=== PATIENT | female | born 1960 | race Caucasian/White ===

== ENCOUNTER 2016-09-26 15:57 | Inpatient (IN) ==
[2016-09-26] MEDS ORDERED: MORPHINE 2 MG/1 ML SYRINGE IV STA (16:23)
[2016-09-26] MEDS ORDERED: SODIUM CHLORIDE 0.9% 1,000 ML IV STA (16:23)
[2016-09-26] MEDS ORDERED: ONDANSETRON 4 MG/2 ML VIAL IV STA (16:23)
[2016-09-26] MEDS ORDERED: PANTOPRAZOLE 40 MG VIAL IV STA (16:23)
[2016-09-26 16:51] LABS: Basophils % 0.5 % (0.0-0.8); Eosinophils # 0.1 10*3/uL (0.0-0.87); Eosinophils % 1.3 % (0.00-10.9); Hematocrit 41.1 VOL% (35.7-47.0); Hemoglobin 13.5 GM/DL (12.0-16.0); Immature Granulocytes % 0.2 %; Immature Granulocytes Absolute 0.01 #; Lymphocytes # 1.3 10*3/uL (1.4-4.0); Lymphocytes % 20.5 % (21.3-54.2); Mean Corpuscular HGB Conc 32.8 GM/DL (32-36); Mean Corpuscular Hemoglobin 33 PG (27-34); Mean Corpuscular Volume 98.8 FL (87-102); Mean Platelet Volume 9.9 FL (9.6-12.0); Monocytes # 0.5 10*3/uL (0.11-0.8); Monocytes % 7.6 % (1.7-12.7); Neutrophils # 4.3 10*3/uL (1.4-7.4); Neutrophils % 69.9 % (38.7-73.9); Platelet Count 290 T/CUMM (130-400); Red Blood Count 4.16 MC/CUMM (3.8-5.5); Red Cell Distribution Width 14.5 % (9.3-17.3); White Blood Count 6.2 T/CUMM (4-12)
[2016-09-26] MEDS ORDERED: PANTOPRAZOLE 40 MG VIAL IV ONE (16:53)
[2016-09-26] MEDS ORDERED: MORPHINE 2 MG/1 ML SYRINGE ONE (16:53)
[2016-09-26] MEDS ORDERED: ONDANSETRON 4 MG/2 ML VIAL ONE (16:53)
--- NOTE | 2016-09-26 16:59 | CT Report ---
History: Left upper quadrant pain with vomiting Date: 09/26/2016 Study: CT abdomen and pelvis without contrast Comparison exam: Contrast CT abdomen and pelvis June 07, 2014 Technique: Spiral CT sections were obtained from the lung bases to the pubic symphysis without contrast. Total DLP measures 590.6 mGy*cm. The CT exam was performed using one or more of the following dose reduction techniques: Automated exposure control, adjustment of the mA and/or kV according to patient size, or use of iterative reconstruction technique. CT abdomen: There is mild strandy scar or subsegmental atelectasis in the left lung base more so than the right. There is moderate diffuse fatty infiltration of the otherwise unremarkable liver. There is some medium dense opacity associated with the lumen of the gallbladder which could represent sludge or gallstones. No calcific density gallstones are seen. There is no gross biliary dilatation. The kidneys, adrenal glands, and spleen are normal in noncontrast appearance. 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 There is an area of relatively decreased density involving the body of the pancreas at 18 mm which could represent chronic pseudocyst formation. There was a vaguely similar area in this same region on the previous contrast CT. There is increased strandy opacity in the peripancreatic fat which could represent changes of previous pancreatitis versus postsurgical scarring. Acute pancreatitis cannot be completely excluded. There is no evidence of pneumoperitoneum. There is no ac bowel obstruction. There is no aneurysm of the moderately calcified abdominal aorta. There is no gross lymphadenopathy. CT pelvis: There is no pelvic mass or abnormal pelvic fluid collection. The uterus is not seen compatible with prior hysterectomy. Impression: 18 mm area of relatively decreased density involving the body of the pancreas which could represent chronic pseudocyst formation, but is nonspecific. There was a similar area on the comparison CT from 2013. Peripancreatic postsurgical change with or without superimposed acute pancreatitis. Correlation with serum amylase and lipase is advised. Strandy scar or subsegmental atelectasis left lower lung. Fatty infiltration of the liver PROCEDURE INTERPRETED AT [facility] DEPARTMENT OF RADIOLOGY Final Report Signed by: Dr. Tita Estevez
[2016-09-26 17:27] LABS: Alanine Aminotransferase 43 U/L (13-56); Albumin 3.3 G/DL (3.4-5.0); Alkaline Phosphatase 98 U/L (45-117); Aspartate Amino Transferase 43 U/L (0-37); Bilirubin,Total < 0.39 MG/DL (0.2-1.0); Blood Urea Nitrogen 12 MG/DL (7-18); Calcium 8.9 MG/DL (8.5-10.1); Glucose 106 MG/DL (74-106); Magnesium 2.2 MG/DL (1.8-2.4); Osmolality,Calculated 274.7 MOS/KG (273-304); Potassium 2.8 MMOL/L (3.5-5.1); Sodium 138 MMOL/L (136-145); Total Protein 7.3 G/DL (6.4-8.3)
--- NOTE | 2016-09-26 17:52 | Emergency Department Note ---
Molly Remy Hilary, am scribing for, and in the presence of, David Webb MD 16:31. Jon Remy Phillip K, MD, personally performed the services described in this documentation, ascribed by Soo Barnes in my presence, and it is both accurate and complete 751 . Arrival - Arrival Chief Complaint: Abdominal / Flank Pain Stated Complaint: abd pain ED Nursing Triage Note: PT C/O PAIN TO [facility]- PT SEEN BY DR PETIT SATURDAY AND WAS TOLD SHE HAD PANCREATITIS. PT HAD LABS AND ULTRASOUND TODAY. PT TOLD BY DR BALL TO COME TO ER TO BE SEEN BY DR ALFORD. +N/V. Mode of Arrival: Ambulatory Limitations: No Limitations Source: Patient, RN Notes Reviewed - History of Present Illness HPI Narrative: Pt is a 55 y/o white female presenting to the ED with c/o abdominal pain which onset 2-3 months ago. Pt confirms nausea, vomiting, decreased appetite, and tenderness to the RUQ that radiates to her back but denies back pain on palpation or chest pain. Pt states that Dr. Ball told her that she has Pancreatitis and she had blood work and an ultrasound done at 0900 this morning at another hospital. She adds that the pain worsens when she coughs or when she moves at all. Pt has PMHx of HTN, Depression, Dyslipidemia, Bronchitis, Asthma, Fibromyalgia, obstructive sleep apnea, Pneumonia, Pancratitis, GERD, and has a Social Hx of drinking frquently and is a current every day smoker. No other complaints or problems stated in the ED. Onset (ago): month(s) Allergies/Adverse Reactions: Allergies Allergy/AdvReac Type Severity Reaction Status Date / Time Erythromycin Base Allergy Unknown Unknown/Unable Verified 09/26/16 16:02 to obtain Penicillins Allergy Unknown Unknown/Unable Verified 09/26/16 16:02 to obtain Sulfa (Sulfonamide Allergy Unknown Unknown/Unable Verified 09/26/16 16:02 Antibiotics) to obtain Home Medications: Home Medications Medication Instructions Recorded Confirmed Type Amlodipine Besylate 10 mg PO QPM 05/14/16 09/26/16 History Atorvastatin [Lipitor] 10 mg PO QPM 05/14/16 09/26/16 History Duloxetine HCl [Cymbalta] 60 mg PO BID 05/14/16 09/26/16 History Loratadine [Claritin] 10 mg PO DAILY PRN 05/14/16 09/26/16 History Mirtazapine 15 mg PO BEDTIME 05/14/16 09/26/16 History Pantoprazole Tab [Protonix Tab] 40 mg PO QAM 05/14/16 09/26/16 History Propranolol HCl [Propranolol Tab] 20 mg PO TID 05/14/16 09/26/16 History QUEtiapine [SEROquel] 100 mg PO BEDTIME 05/14/16 09/26/16 History Tizanidine HCl 2 mg PO TID PRN 05/14/16 09/26/16 History Doxepin [SINEquan] 100 mg PO BEDTIME 09/26/16 09/26/16 History Fluticasone 50 Mcg Nasal [place] 1 spray BOTH NARES DAILY PRN 09/26/16 09/26/16 History [Flonase Nasal [place]] hydroCHLOROthiazide 12.5 mg PO QAM 09/26/16 09/26/16 History [Hydrochlorothiazide] Review of System - Review of System 12 point system: reviewed and no additional remarkable complaints except as stated - Review of System Constitutional: Present: other (Decreased appetite). Absent: fever Respiratory: Present: cough Cardiovascular: Absent: chest pain Gastrointestinal: Present: abdominal pain, nausea, vomiting Musculoskeletal: Absent: back pain, neck pain Medical,Surgical,& Family Hx - Medical History Cardio: History of: Hypertension Psychological: History of: Anxiety Disorders, Depression Neurology: No history of: Seizures Endocrine: History of: Dyslipidemia Rheumatology: History of;: Fibromyalgia Respiratory: History of: Asthma, Bronchitis, Obstructive Sleep Apnea (Does not wear C-pap), Pneumonia Gastrointestinal: History of: GERD, Hemorrhoids, Pancreatitis Musculoskeletal: History of: Back/Neck Problems (Neck) Hematology: No history of: Blood Transfusion Reaction Reproductive: No history of: Abnormal Pap Smear, Breast Cancer Other: No history of: Anesthesia Reactions - Surgical History Cardiac Surgeries: Patient Denies: Cardiac Catheterization Abdominal Surgeries: Surgical HX of: Abdominal Surgery, Appendectomy, Colonoscopy, EGD Patient denies: Cholecystectomy, Gastric Bypass Surgery, Hernia Repair Reproductive Surgeries: Surgical HX of;: Gynecologic Surgery, Hysterectomy Patient denies;: Breast Surgery, Section Orthopedic Surgeries: Surgical HX of;: Orthopedic Surgery (LEFT shoulder rotator cuff repair) - Family History Family History: Denies;: Family Anesthesia Reaction, Family Cancer, Family Diabetes, Family Heart Disease, Family Hypertension, Family Psychiatric Problems, Family Stroke - Social History Smoking Status: Current every day smoker Frequency of Alcohol Use: Occasionally Type of Drug Use: None Exam Vital Signs: Vital Signs Temperature 98.9 F 09/26/16 15:58 Pulse Rate 93 H 09/26/16 17:15 Respiratory Rate 18 09/26/16 17:15 Blood Pressure 142/75 09/26/16 17:15 O2 Sat by Pulse Oximetry 94 L 09/26/16 17:15 - General General appearance: alert, in no apparent distress - Head Head exam: Present: atraumatic, normocephalic - Eye Eye exam: Present: normal appearance, PERRL, EOMI - ENT ENT exam: Present: mucous membranes dry, TM's normal bilaterally - Neck Neck exam: Present: full ROM, trachea midline. Absent: tenderness - Chest Chest inspection: Present: symmetric chest wall rise. Absent: tenderness - Respiratory Respiratory exam: Present: rales (Bilaterally) - Cardiovascular Cardiovascular exam: Present: normal rhythm, tachycardia. Absent: murmur, rubs , gallop - Abdominal Exam Abdominal exam: Present: tenderness (RUQ tenderness to direct palpation), normal bowel sounds. Absent: guarding, rebound - Extremities Exam Extremities exam: Present: full ROM. Absent: tenderness, pedal edema - Back Exam Back exam: Present: full ROM. Absent: tenderness - Neurological Exam Neurological exam: Present: alert, oriented X3, CN II-XII intact. Absent: motor sensory deficit - Psychiatric Psychiatric exam: Present: normal affect, normal mood - Skin Skin exam: Present: warm, dry, intact, normal color. Absent: rash Results - Labs CBC & BMP: 09/26/16 16:39 09/26/16 16:39 Lab Results: I have reviewed the patients labs Labs: Laboratory Tests 09/26/16 16:39 WBC 6.2 RBC 4.16 Hgb 13.5 Hct 41.1 Lymph % (Auto) 20.5 L Lymph # (Auto) 1.3 L Laboratory Tests 09/26/16 09/26/16 09/26/16 16:39 16:39 16:39 WBC 6.2 RBC 4.16 Hgb 13.5 Hct 41.1 Lymph % (Auto) 20.5 L Lymph # (Auto) 1.3 L Potassium 2.8 L Albumin 3.3 L Globulin 4.0 H Albumin/Globulin Ratio 0.8 L Lipase 1029.0 H Serum Alcohol 168 - Diagnostic Findings Procedure: CT Abdomen and Pelvis: report reviewed by me (18mm area of relatively decreased density involving the body of the pancreas which could represent chronic pseudocyst formation, but is nonspecific. There was a similar area on the comparison CT from 2014. Peripancreatic postsurgical change with or without superimposed acute pancreatitis. Correlation with serum amylase and lipase is advised. Strandy scar or subsegmetnal atelectasis left lower lung. Fatty infiltration of the liver. ) Disposition Clinical Impression: Acute pancreatitis, Alcohol intoxication Case discussed with: patient, patient's family Disposition: Still a Patient Condition: Guarded Additional Instructions: Admitted to the hospitalist.
[2016-09-26 18:10] LABS: Apearance,Urine CLEAR (Clear); Bacteria,Urine Occasional /HPF (Few); Bilirubin,Urine Negative (Negative); Blood, Urine Negative (Negative); Glucose,Urine (UA) Negative (Negative); Ketones,Urine 5 mg/dL (Negative); Mucus,Urine Occasional /LPF (Occasional); Nitrite,Urine Negative (Negative); Protein,Urine Negative; RBC,Urine <1 /HPF (0-4); Squamous Epithelial Cell,Urine Occasional /HPF (0-10); Urine Color Yellow (Yellow); Urine Specific Gravity 1.019 (1.001-1.035); WBC,Urine 1 /HPF (0-6)
--- NOTE | 2016-09-26 18:24 | EKG Report ---
Stationary ECG Study [facility] ER Test Date: 09/26/2016 6:22:01 PM Pat Name: BERE FERNANDEZ Department: Room: [facility] Gender: F Global Sales Director: CEDRIC : 1960 Requested by: David Salazar Order Number: [id number] Reading MD: MELISSA FAUSTIN Intervals [place] Rate: 94 P: 36 ID: 160 QRS: 40 QRSD: 90 T: 60 QT: 362 QTc: 413 Interpretive Statements SINUS RHYTHM Electronically Signed On 10-01-16 11:28:28 CDT by MELISSA FAUSTIN [email or web address]
--- NOTE | 2016-09-26 19:02 | Hospitalist History & Physical ---
Assessment and Plan - Time spent with patient Time spent with patient: Greater than 30 minutes (1) Acute alcoholic pancreatitis Status: Acute Assessment and plan: 55-year-old white female with history of previous admissions for acute alcoholic pancreatitis, depression, fibromyalgia and hypertension admitted by the hospitalist service with acute alcoholic pancreatitis. Patient is adamantly denying her alcohol use but her serum alcohol level was 168. Patient' s case has been discussed with Dr. Jules the admitting hospitalist. Further recommendations to follow Acute alcoholic pancreatitis--IV fluid, pain and nausea control, consult Dr. Estevez since he is seen her previously. We will go ahead and hang a banana bag since patient's alcohol use and amount is unknown. Start antibiotics. Hypertension--restart patient's home meds and monitor Tobacco abuse--order nicotine patch Depression/fibromyalgia--restart home meds Hypokalemia--potassium replacement protocol. Recheck labs in the morning Current Visit: Yes (2) Fibromyalgia Status: Acute Current Visit: Yes (3) Depression Status: Acute Current Visit: Yes (4) Tobacco abuse Status: Acute Current Visit: Yes (5) Hypokalemia Status: Acute Current Visit: Yes History of Present Illness Chief complaint: Abdominal pain History of present illness: Ms. Crum is a 55 year old female with history of hypertension, depression, alcohol abuse, fibromyalgia and acute pancreatitis presenting to the ED with a 2 week history of progressive abdominal pain. Patient states it is not associated with nausea or vomiting. She went to her family doctor in [place] that thought she had costochondritis. She was sent to Dr. Adam on Saturday who thought she was misdiagnosed. He ordered several tests that were done this morning. Dr. Adam office called and told her to go to the emergency room because she had acute pancreatitis. Patient has had multiple admissions for acute alcoholic pancreatitis over the last several years. Dr. Estevez from gastroenterology has taken care of her on all those occasions. Her last admission was in May 2014. Patient denies any alcohol intake. She states the last time she drank was in March after her son of an overdose. Patient's pulled me outside of the room and stated that he has suspected her of drinking alcohol in the last few weeks. He is found several bottles of vodka laying around the house. states the patient has had 2 DUIs and that he has taken her car keys away from her. He is unsure how she will be getting the alcohol. Patient adamantly denies this accusation. Patient's serum alcohol level was 168 on today's admission lab work. Patient denies headache, dysphagia, chest pain, shortness of breath, constipation, or lower extremity edema. Her white count is normal, potassium low at 2.8, LFTs normal, lipase is elevated at 1029. CT of the abdomen and pelvis done in the ED show an 18 mm area of relatively decreased density involving the body of the pancreas which could represent chronic pseudocyst formation. Upon exam, patient 's chest is clear and she is tachycardic. She is tender to palpation in the left upper quadrant with no peritoneal signs. Patient's case was discussed with Dr. Webb the ED physician and Dr. Jules the admitting hospitalist, and it was agreed upon the patient would be admitted for evaluation and treatment. Home Medications Medication Instructions Recorded Confirmed Type Amlodipine Besylate 10 mg PO QPM 05/14/16 09/26/16 History Atorvastatin [Lipitor] 10 mg PO QPM 05/14/16 09/26/16 History Duloxetine HCl [Cymbalta] 60 mg PO BID 05/14/16 09/26/16 History Loratadine [Claritin] 10 mg PO DAILY PRN 05/14/16 09/26/16 History Mirtazapine 15 mg PO BEDTIME 05/14/16 09/26/16 History Pantoprazole Tab [Protonix Tab] 40 mg PO QAM 05/14/16 09/26/16 History Propranolol HCl [Propranolol Tab] 20 mg PO TID 05/14/16 09/26/16 History QUEtiapine [SEROquel] 100 mg PO BEDTIME 05/14/16 09/26/16 History Tizanidine HCl 2 mg PO TID PRN 05/14/16 09/26/16 History Doxepin [SINEquan] 100 mg PO BEDTIME 09/26/16 09/26/16 History Fluticasone 50 Mcg Nasal [place] 1 spray BOTH NARES DAILY PRN 09/26/16 09/26/16 History [Flonase Nasal [place]] hydroCHLOROthiazide 12.5 mg PO QAM 09/26/16 09/26/16 History [Hydrochlorothiazide] Allergies Allergy/AdvReac Type Severity Reaction Status Date / Time Erythromycin Base Allergy Unknown Unknown/Unable Verified 09/26/16 16:02 to obtain Penicillins Allergy Unknown Unknown/Unable Verified 09/26/16 16:02 to obtain Sulfa (Sulfonamide Allergy Unknown Unknown/Unable Verified 09/26/16 16:02 Antibiotics) to obtain Medical,Surgical,& Family Hx - Medical History Cardio: History of: Hypertension Psychological: History of: Anxiety Disorders, Depression Neurology: No history of: Seizures Endocrine: History of: Dyslipidemia Rheumatology: History of;: Fibromyalgia Respiratory: History of: Asthma, Bronchitis, Obstructive Sleep Apnea (Does not wear C-pap), Pneumonia Gastrointestinal: History of: GERD, Hemorrhoids, Pancreatitis Musculoskeletal: History of: Back/Neck Problems (Neck) Hematology: No history of: Blood Transfusion Reaction Reproductive: No history of: Abnormal Pap Smear, Breast Cancer Other: No history of: Anesthesia Reactions - Surgical History Cardiac Surgeries: Patient Denies: Cardiac Catheterization Abdominal Surgeries: Surgical HX of: Abdominal Surgery, Appendectomy, Colonoscopy, EGD Patient denies: Cholecystectomy, Gastric Bypass Surgery, Hernia Repair Reproductive Surgeries: Surgical HX of;: Gynecologic Surgery, Hysterectomy Patient denies;: Breast Surgery, Section Orthopedic Surgeries: Surgical HX of;: Orthopedic Surgery (LEFT shoulder rotator cuff repair) - Family History Family History: Reports;: Family Cancer, Family Hypertension Denies;: Family Anesthesia Reaction, Family Diabetes, Family Heart Disease, Family Psychiatric Problems, Family Stroke - Social History Smoking Status: Current every day smoker Have you smoked in the last 12 months: Yes Frequency of Alcohol Use: Occasionally Type of Drug Use: None Marital Status: Lives With:: Spouse Functional capacity: independent ambulation Review of systems: A complete 10 system review of systems was obtained and pertinent negatives and positives per HPI Exam - Constitutional Vitals: Period Temp Pulse Resp BP Sys/Rodriguez Pulse Ox Last 24 Hr 89-97 18-18 152-156/93-93 93-98 Exam: Constitutional System: No distress. No tremulousness. Head: Normocephalic, atraumatic. Ears, Nose and Throat System: No evidence of Otitis or Mastoiditis. No epistaxis or discharge Eyes System: Pupils equal, round, and reactive. Extraocular muscles intact. Neck: Supple, without adenopathy, No jugular venous distention. No thyromegaly, neck mass, or prior surgery apparent. Respiratory System: Chest clear to auscultation. Cardiovascular System: Heart with tachycardia rate and rhythm. No murmur. GI System: Abdomen soft, tender to palpation left upper quadrant, no peritoneal signs no rebound. Normo active bowel sounds present. Musculoskeletal System: limbs with no pedal edema. Full distal pulses. Neurological System: No discernable sensory deficit. No aphasia Psychiatric System: Conversation is rational Results - Labs CBC & BMP: 09/26/16 16:39 09/26/16 16:39 Lab Results: I have reviewed the past 24 hour labs - EKG EKG results: sinus rhythm EKG shows: tachycardia - Diagnostic Findings Procedure: CT Abdomen and Pelvis: report reviewed by me (Pancreatic pseudocyst)
[2016-09-26] MEDS ORDERED: guaiFENesin/DM ER 600-30 MG TABLET PO PRN (19:11)
[2016-09-26] MEDS ORDERED: ACETAMINOPHEN 325 MG TABLET PO PRN (19:11)
[2016-09-26] MEDS ORDERED: LORazepam 2 MG/1 ML VIAL IV PRN (19:16)
[2016-09-26] MEDS ORDERED: LORATADINE 10 MG TABLET PO PRN (19:37)
[2016-09-26] MEDS ORDERED: FLUTICASONE 50 MCG NASAL SPRAY 16 GM BOTTLE BOTH NARES PRN (19:37)
[2016-09-26] MEDS ORDERED: tiZANidine 4 MG TABLET PO PRN (19:37)
[2016-09-26] MEDS: NICOTINE 21 MG/24 HR PATCH TRANSDERM PRN (19:56)
[2016-09-26] MEDS: ENOXAPARIN 40 MG/0.4 ML SYRINGE SUBCUT SCH (19:57)
[2016-09-26] MEDS: SODIUM CHLORIDE 0.9% 1,000 ML IV SCH (19:58)
[2016-09-26] MEDS: HYDROmorphone 2 MG/1 ML VIAL IV PRN (19:59)
[2016-09-26] MEDS: metroNIDAZOLE INJ 500 MG in PREMIX 1 EACH IV SCH (20:05)
[2016-09-26] MEDS ORDERED: POTASSIUM CHLORIDE 20 MEQ PACK PO ONE ×2 (21:10→23:15)
[2016-09-26] MEDS: MIRTAZAPINE 15 MG TABLET PO SCH (21:30)
[2016-09-26] MEDS: DULoxetine 30 MG CAPSULE PO SCH (21:30)
[2016-09-26] MEDS: QUEtiapine 100 MG TABLET PO SCH (21:30)
[2016-09-26] MEDS: ATORVASTATIN 10 MG TABLET PO SCH (21:30)
[2016-09-26] MEDS: DOXEPIN 100 MG CAPSULE PO SCH (21:30)
[2016-09-26] MEDS: amLODIPine 10 MG TABLET PO SCH (21:30)
[2016-09-26] MEDS: PROPRANOLOL 20 MG TABLET PO SCH (21:30)
[2016-09-26] MEDS: CIPROFLOXACIN INJ 400 MG in PREMIX 1 EACH IV SCH (21:35)
[2016-09-26] MEDS: ONDANSETRON 4 MG/2 ML VIAL IV PRN (21:48)
[2016-09-26] MEDS: THIAMINE INJ 100 MG, FOLIC ACID INJ 1 MG, MULTIVITAMIN INJ 10 ML in SODIUM CHLORIDE 0.4... IV SCH (23:42)
[2016-09-27] MEDS: SODIUM CHLORIDE 0.9% 1,000 ML IV SCH ×4 (00:49→18:16)
[2016-09-27] MEDS ORDERED: POTASSIUM CHLORIDE 20 MEQ PACK PO ONE (01:15)
[2016-09-27] MEDS: HYDROmorphone 2 MG/1 ML VIAL IV PRN ×4 (01:34→18:15)
[2016-09-27] MEDS: metroNIDAZOLE INJ 500 MG in PREMIX 1 EACH IV SCH ×4 (01:40→20:27)
[2016-09-27 05:55] LABS: Basophils % 0.7 % (0.0-0.8); Eosinophils # 0.1 10*3/uL (0.0-0.87); Eosinophils % 2.3 % (0.00-10.9); Hematocrit 35.5 VOL% (35.7-47.0); Immature Granulocytes % 0.3 %; Immature Granulocytes Absolute 0.01 #; Lymphocytes # 1.2 10*3/uL (1.4-4.0); Lymphocytes % 38.5 % (21.3-54.2); Mean Corpuscular HGB Conc 32.1 GM/DL (32-36); Mean Corpuscular Hemoglobin 32 PG (27-34); Mean Corpuscular Volume 100.3 FL (87-102); Mean Platelet Volume 10.4 FL (9.6-12.0); Monocytes # 0.3 10*3/uL (0.11-0.8); Monocytes % 11.4 % (1.7-12.7); Neutrophils # 1.4 10*3/uL (1.4-7.4); Neutrophils % 46.8 % (38.7-73.9); Red Blood Count 3.54 MC/CUMM (3.8-5.5); Red Cell Distribution Width 14.6 % (9.3-17.3)
[2016-09-27 06:15] LABS: Hemoglobin 11.4 GM/DL (12.0-16.0); Platelet Count 229 T/CUMM (130-400)
[2016-09-27 06:23] LABS: Alanine Aminotransferase 30 U/L (13-56); Albumin 2.8 G/DL (3.4-5.0); Alkaline Phosphatase 81 U/L (45-117); Aspartate Amino Transferase 33 U/L (0-37); Bilirubin,Total < 0.39 MG/DL (0.2-1.0); Blood Urea Nitrogen 10 MG/DL (7-18); Cholesterol 132 MG/DL (50-200); Glucose 86 MG/DL (74-106); HDL Cholesterol 34 MG/DL (40-60); Magnesium 2.1 MG/DL (1.8-2.4); Osmolality,Calculated 278.3 MOS/KG (273-304); Potassium 3.5 MMOL/L (3.5-5.1); Risk Ratio 3.88; Sodium 141 MMOL/L (136-145); Total Protein 5.5 G/DL (6.4-8.3); Triglycerides 84 MG/DL (2-150); VLDL CHOLESTEROL 16.8 MG/DL
--- NOTE | 2016-09-27 08:26 | Ultrasound Report ---
Abdominal ultrasound Indication: Pancreatitis Findings: The liver is normal in size and echogenicity. The gallbladder is fluid-filled without evidence of stones or sludge. The gallbladder wall thickness is 2.0 mm. The common bile duct measures 3.0 mm. Cystic areas seen in the midepigastric region near the body of the pancreas. The kidneys normal in size and echogenicity without hydronephrosis or other abnormality. The right renal length is 10.9 cm. Left renal length is 12.3 cm. Spleen, aorta and IVC appear within normal limits. No free fluid or free air seen. Impression: Cystic area mid epigastric region near body of pancreas may indicate cirrhosis. No other evidence of abnormality demonstrated. Ultrasound images stored and captured. PROCEDURE INTERPRETED AT [facility] DEPARTMENT OF RADIOLOGY Final Report Signed by: Dr. Joe Melvin
[2016-09-27] MEDS: ONDANSETRON 4 MG/2 ML VIAL IV PRN ×3 (08:58→18:15)
[2016-09-27] MEDS: PROPRANOLOL 20 MG TABLET PO SCH ×3 (08:59→20:31)
[2016-09-27] MEDS: PANTOPRAZOLE 40 MG TABLET PO SCH (08:59)
[2016-09-27] MEDS: DULoxetine 30 MG CAPSULE PO SCH ×2 (08:59→20:31)
[2016-09-27] MEDS: hydroCHLOROthiazide 12.5 MG CAPSULE PO SCH (08:59)
--- NOTE | 2016-09-27 09:30 | Gastrointestinal Consult Note ---
Assessment and Plan (1) Acute on chronic pancreatitis Status: Acute Assessment and plan: 09/27-history of pancreatitis since 2011 being the fourth episode since initial onset. Lipase levels trending down at [address] findings noted below. Continue to monitor, keep n.p.o., analgesics as needed. Add Benadryl for opioid-induced itching. Plan an addendum to follow by Dr. Estevez Current Visit: Yes History of Present Illness Chief complaint: Pancreatitis History of present illness: Ms. Crum is a 55 year old female who presented to the hospital with 1 month history of abdominal pain. Patient states that a month ago she had onset of upper quadrant abdominal pain. She states this pain was also associated with episodes of nausea and vomiting, low-grade fever on a couple of occasions and night sweats. Patient has a history of pancreatitis in the past with this being her fourth episode requiring hospitalization. Patient's first episode was in 2011 following onset of binge drinking. Patient states she had a great deal of stress at that time in her life and she did turn to drinking. She was then hospitalized again twice in 2013 for episodes of pancreatitis following the of her son. Patient states that she has gone through periods of heavy drinking over the past 5 years and has been inpatient for rehab at [facility] before due to this. Patient is very concerned because her is the co teacher of music at their [employer] and she does not want him to be aware of her recent drinking. Patient's alcohol level on admission was 168. Patient was adamant on admission that she has not drank in several months however she admitted today that her last drink was either Saturday or Saturday of this week. She states that she drinks a pint of vodka a day and smokes a pack of cigarettes daily. Patient states this episode of pancreatitis did not feel like the ones in the past due to her pain was more left upper quadrant before. She states this pain is more epigastric area. She was initially diagnosed with costochondritis by her PCP however the pain did not improve and she was sent to see Dr. Adam at the pain clinic. He obtained lab work and imaging and sent her to the ER following the findings of pancreatitis. She denies any weight loss associated with this. She denies a history of DTs or withdrawal seizures. On admission her lipase level was found to be 1029, down today at 885. Amylase is 207. She had an ultrasound of her abdomen which showed a cystic area mid epigastric in the body of the pancreas. CT of the abdomen showed an 18 mm density in the body of the pancreas as well which could represent chronic pseudocyst. Also noted medium dense opacity of the lumen of the gallbladder which could represent sludge or stones with no dilation noted. Patient also noted to have fatty liver changes. LFTs are unremarkable. Home Medications Medication Instructions Recorded Confirmed Type Atorvastatin [Lipitor] 10 mg PO QPM 05/14/16 09/26/16 History Duloxetine HCl [Cymbalta] 60 mg PO BID 05/14/16 09/26/16 History Loratadine [Claritin] 10 mg PO DAILY PRN 05/14/16 09/26/16 History Mirtazapine 30 mg PO BEDTIME 05/14/16 09/26/16 History Pantoprazole Tab [Protonix Tab] 40 mg PO QAM 05/14/16 09/26/16 History Propranolol HCl [Propranolol Tab] 20 mg PO TID 05/14/16 09/26/16 History QUEtiapine [SEROquel] 100 mg PO BEDTIME 05/14/16 09/26/16 History Tizanidine HCl 2 mg PO TID PRN 05/14/16 09/26/16 History Albuterol Sulfate [Proair HFA] 2 puffs PO BID 09/26/16 09/26/16 History Beclomethasone 40 Mcg Inhaler 2 puffs PO BID 09/26/16 09/26/16 History [Qvar 40 Mcg] Benzonatate [Tessalon] 200 mg PO TID PRN 09/26/16 09/26/16 History Doxepin [SINEquan] 100 mg PO BEDTIME 09/26/16 09/26/16 History Fluticasone 50 Mcg Nasal [place] 1 spray BOTH NARES DAILY PRN 09/26/16 09/26/16 History [Flonase Nasal [place]] Propranolol Tab [Inderal Tab] 20 mg PO TID 09/26/16 09/26/16 History hydroCHLOROthiazide 12.5 mg PO QAM 09/26/16 09/26/16 History [Hydrochlorothiazide] Allergies Allergy/AdvReac Type Severity Reaction Status Date / Time Erythromycin Base Allergy Unknown Unknown/Unable Verified 09/26/16 16:02 to obtain Penicillins Allergy Unknown Unknown/Unable Verified 09/26/16 16:02 to obtain Sulfa (Sulfonamide Allergy Unknown Unknown/Unable Verified 09/26/16 16:02 Antibiotics) to obtain Medical,Surgical,& Family Hx - Medical History Cardio: History of: Hypertension Psychological: History of: Anxiety Disorders, Depression Neurology: No history of: Seizures Endocrine: History of: Dyslipidemia Rheumatology: History of;: Fibromyalgia Respiratory: History of: Asthma, Bronchitis, Obstructive Sleep Apnea (Does not wear C-pap), Pneumonia Gastrointestinal: History of: GERD, Hemorrhoids, Pancreatitis Musculoskeletal: History of: Back/Neck Problems (Neck) Hematology: No history of: Blood Transfusion Reaction Reproductive: No history of: Abnormal Pap Smear, Breast Cancer Other: No history of: Anesthesia Reactions - Surgical History Cardiac Surgeries: Patient Denies: Cardiac Catheterization Thoracic Surgeries: Patient denies;: Organ Transplant, Lobectomy Neurologic Surgeries: Patient denies: Neurologic Surgery Abdominal Surgeries: Surgical HX of: Abdominal Surgery, Appendectomy, Colonoscopy, EGD Patient denies: Cholecystectomy, Gastric Bypass Surgery, Hernia Repair Reproductive Surgeries: Surgical HX of;: Gynecologic Surgery, Hysterectomy Patient denies;: Breast Surgery, Section Orthopedic Surgeries: Surgical HX of;: Orthopedic Surgery (LEFT shoulder rotator cuff repair) - Family History Family History: Reports;: Family Cancer, Family Hypertension Denies;: Family Anesthesia Reaction, Family Diabetes, Family Heart Disease, Family Psychiatric Problems, Family Stroke - Social History Smoking Status: Current every day smoker Frequency of Alcohol Use: Occasionally Type of Drug Use: None 12 point system: reviewed and no additional remarkable complaints except as stated - Constitutional Constitutional: Present: as per HPI - EENT Eyes: Present: as per HPI Ears: Present: as per HPI Nose, mouth and throat: Present: as per HPI - Cardiovascular Cardiovascular: Present: as per HPI - Respiratory Respiratory: Present: as per HPI - Gastrointestinal Gastrointestinal: Present: as per HPI, abdominal pain, nausea, vomiting - Genitourinary Genitourinary: Present: as per HPI - Musculoskeletal Musculoskeletal: Present: as per HPI - Neurological Neurological: Present: as per HPI - Psychiatric Psychiatric: Present: as per HPI - Endocrine Endocrine: Present: as per HPI - Hematologic/Lymphatic Hematologic/Lymphatic: Present: as per HPI Exam - Constitutional Vitals: Period Temp Pulse Resp BP Sys/Rodriguez Pulse Ox Last 24 Hr 98.1 F-99.3 F 74-97 16-20 101-156/73-93 91-98 General appearance: normal weight, no acute distress - Head Head exam: Present: normal inspection, normocephalic - Eye Eye exam: Present: other (Lids and conjunctivae unremarkable). Absent: scleral icterus - ENT ENT exam: Present: normal exam, normal oropharynx - Neck Neck exam: Present: normal inspection - Respiratory Respiratory exam: Present: clear to auscultation bilaterally. Absent: rales, rhonchi, wheezes - Cardiovascular Cardiovascular exam: Present: regular rate and rhythm. Absent: diastolic murmur , JVD, systolic murmur - GI/Abdominal GI/Abdominal exam: Present: normal bowel sounds, tenderness, soft. Absent: ascites, distended, mass, organomegaly - Extremities Exam Extremities exam: Present: normal inspection, full ROM - Back Exam Back exam: Present: normal inspection - Neurological Exam Neurological exam: Present: alert, oriented X3 - Psychiatric Psychiatric exam: Present: normal affect, normal mood - Skin Skin exam: Present: normal color, warm, dry Results - Labs CBC & BMP: 09/27/16 05:12 09/27/16 05:12 Lab Results: I have reviewed the past 24 hour labs - Diagnostic Findings Procedure: CT Abdomen and Pelvis: report reviewed by me, Ultrasound: report reviewed by me
[2016-09-27] MEDS ORDERED: diphenhydrAMINE CAP 25 MG CAPSULE PO PRN (09:32)
[2016-09-27] MEDS: CIPROFLOXACIN INJ 400 MG in PREMIX 1 EACH IV SCH ×2 (09:56→21:52)
[2016-09-27] MEDS: diphenhydrAMINE CAP 25 MG CAPSULE PO PRN ×2 (09:56→18:21)
--- NOTE | 2016-09-27 16:22 | Hospitalist Progress Note ---
Assessment and Plan - Time spent with patient Time spent with patient: Greater than 30 minutes (1) Acute alcoholic pancreatitis Status: Acute Assessment and plan: CT reveals possible pseudocyst. GI is involved. Continue current management. Current Visit: Yes Hospitalist: Subjective Interval history: Patient feels much better this morning. She is tolerating ice water. Abdominal pain is still present though much improved. Exam - Constitutional Vitals: Period Temp Pulse Resp BP Sys/Rodriguez Pulse Ox Last 24 Hr 97.2 F-99.3 F 68-97 16-20 101-156/73-93 89-98 General appearance: no acute distress - Head Head exam: Present: normocephalic, atraumatic - Eye Eye exam: Present: EOMI Pupils: Present: DORIS - ENT ENT exam: Present: normal exam - Neck Neck exam: Present: normal inspection - Respiratory Respiratory exam: Present: clear to auscultation bilaterally. Absent: rhonchi, wheezes - Cardiovascular Cardiovascular exam: Present: regular rate and rhythm. Absent: gallop, rubs, systolic murmur - GI/Abdominal GI/Abdominal exam: Present: normal bowel sounds, tenderness, soft. Absent: distended, firm, guarding, rebound - Extremities Exam Extremities exam: Present: normal inspection. Absent: calf tenderness, edema Results - Labs CBC & BMP: 09/27/16 05:12 09/27/16 05:12 Lab Results: I have reviewed the past 24 hour labs
[2016-09-27] MEDS: ATORVASTATIN 10 MG TABLET PO SCH (18:16)
[2016-09-27] MEDS: amLODIPine 10 MG TABLET PO SCH (18:16)
[2016-09-27] MEDS: ENOXAPARIN 40 MG/0.4 ML SYRINGE SUBCUT SCH (20:29)
[2016-09-27] MEDS: QUEtiapine 100 MG TABLET PO SCH (20:31)
[2016-09-27] MEDS: MIRTAZAPINE 15 MG TABLET PO SCH (20:31)
[2016-09-27] MEDS: DOXEPIN 100 MG CAPSULE PO SCH (20:31)
[2016-09-28] MEDS: THIAMINE INJ 100 MG, FOLIC ACID INJ 1 MG, MULTIVITAMIN INJ 10 ML in SODIUM CHLORIDE 0.4... IV SCH (00:02)
[2016-09-28] MEDS: metroNIDAZOLE INJ 500 MG in PREMIX 1 EACH IV SCH ×4 (01:59→21:54)
[2016-09-28] MEDS: HYDROmorphone 2 MG/1 ML VIAL IV PRN ×5 (03:31→21:53)
[2016-09-28] MEDS: ONDANSETRON 4 MG/2 ML VIAL IV PRN ×4 (03:31→18:40)
[2016-09-28] MEDS: diphenhydrAMINE CAP 25 MG CAPSULE PO PRN ×3 (03:36→22:13)
[2016-09-28 07:18] LABS: Basophils % 0.5 % (0.0-0.8); Eosinophils # 0.1 10*3/uL (0.0-0.87); Eosinophils % 2.2 % (0.00-10.9); Hematocrit 35.5 VOL% (35.7-47.0); Hemoglobin 11.4 GM/DL (12.0-16.0); Immature Granulocytes % 0.5 %; Immature Granulocytes Absolute 0.02 #; Lymphocytes # 0.8 10*3/uL (1.4-4.0); Lymphocytes % 21.2 % (21.3-54.2); Mean Corpuscular HGB Conc 32.1 GM/DL (32-36); Mean Corpuscular Hemoglobin 33 PG (27-34); Mean Corpuscular Volume 101.1 FL (87-102); Mean Platelet Volume 10.7 FL (9.6-12.0); Monocytes # 0.3 10*3/uL (0.11-0.8); Monocytes % 7.3 % (1.7-12.7); Neutrophils # 2.5 10*3/uL (1.4-7.4); Neutrophils % 68.3 % (38.7-73.9); Platelet Count 213 T/CUMM (130-400); Red Blood Count 3.51 MC/CUMM (3.8-5.5); Red Cell Distribution Width 14.5 % (9.3-17.3); White Blood Count 3.7 T/CUMM (4-12)
[2016-09-28 07:31] LABS: Potassium 3.8 MMOL/L (3.5-5.1)
--- NOTE | 2016-09-28 07:58 | Gastrointestinal Progress Note ---
Assessment and Plan (1) Acute on chronic pancreatitis Status: Acute Assessment and plan: 09/28-pain is controlled with analgesics at present, nausea relieved with Zofran. Resting comfortably. Lipase level pending. Plan an addendum to followed by Dr. Estevez 09/27-history of pancreatitis since 2011 being the fourth episode since initial onset. Lipase levels trending down at [address] findings noted below. Continue to monitor, keep n.p.o., analgesics as needed. Add Benadryl for opioid-induced itching. Plan an addendum to follow by Dr. Estevez Current Visit: Yes Gastroenterology - PN: Subj Interval history: CC: Pancreatitis Patient is seen awake and alert lying in bed. States that she had some abdominal pain throughout the night however it was eased off about 4:00 this morning with analgesics. Abdomen is soft, mild tenderness to left upper quadrant. Lipase level is pending for this morning. Denies any vomiting but has had some nausea throughout the night. Afebrile. No signs of DTs or alcohol withdrawal seizures at present time. ROS: Denies shortness of breath or chest pain. Exam (Progress Note) - Constitutional Vitals: Period Temp Pulse Resp BP Sys/Rodriguez Pulse Ox Last 24 Hr 97.2 F-98.4 F 65-82 18-20 101-134/66-86 89-95 - Other Additional findings: General appearance: normal weight, no acute distress - Head Head exam: Present: normal inspection, normocephalic - Eye Eye exam: Present: other (Lids and conjunctivae unremarkable). Absent: scleral icterus - ENT ENT exam: Present: normal exam, normal oropharynx - Neck Neck exam: Present: normal inspection - Respiratory Respiratory exam: Present: clear to auscultation bilaterally. Absent: rales, rhonchi, wheezes - Cardiovascular Cardiovascular exam: Present: regular rate and rhythm. Absent: diastolic murmur , JVD, systolic murmur - GI/Abdominal GI/Abdominal exam: Present: normal bowel sounds, tenderness, soft. Absent: ascites, distended, mass, organomegaly - Extremities Exam Extremities exam: Present: normal inspection, full ROM - Back Exam Back exam: Present: normal inspection - Neurological Exam Neurological exam: Present: alert, oriented X3 - Psychiatric Psychiatric exam: Present: normal affect, normal mood - Skin Skin exam: Present: normal color, warm, dry Results - Labs CBC & BMP: 09/28/16 05:53 09/28/16 05:53 Lab Results: I have reviewed the past 24 hour labs
[2016-09-28] MEDS: NICOTINE 21 MG/24 HR PATCH TRANSDERM PRN (09:16)
[2016-09-28] MEDS: PANTOPRAZOLE 40 MG TABLET PO SCH (09:17)
[2016-09-28] MEDS: PROPRANOLOL 20 MG TABLET PO SCH ×3 (09:17→20:15)
[2016-09-28] MEDS: DULoxetine 30 MG CAPSULE PO SCH ×2 (09:17→20:14)
[2016-09-28] MEDS: hydroCHLOROthiazide 12.5 MG CAPSULE PO SCH (09:18)
[2016-09-28] MEDS: CIPROFLOXACIN INJ 400 MG in PREMIX 1 EACH IV SCH ×2 (10:44→18:39)
--- NOTE | 2016-09-28 14:48 | Hospitalist Progress Note ---
Assessment and Plan - Time spent with patient Time spent with patient: Greater than 30 minutes (1) Acute alcoholic pancreatitis Status: Acute Assessment and plan: CT reveals possible pseudocyst. GI is involved. Continue current management. Given distention and abdominal pain we will order KUB. Current Visit: Yes (2) Bibasilar crackles Status: Acute Assessment and plan: Order chest x-ray and cardiac ultrasound. Current Visit: Yes Hospitalist: Subjective Interval history: Complains of sensation of something stuck in the back of her throat. Has abdominal distention and tenderness. Exam - Constitutional Vitals: Period Temp Pulse Resp BP Sys/Rodriguez Pulse Ox Last 24 Hr 97.2 F-97.9 F 65-82 18-20 101-125/66-86 90-95 General appearance: no acute distress - Head Head exam: Present: normocephalic, atraumatic - Eye Eye exam: Present: EOMI Pupils: Present: DORIS - ENT ENT exam: Present: normal exam - Neck Neck exam: Present: normal inspection - Respiratory Respiratory exam: Present: other (Crackles bibasilar). Absent: rhonchi, wheezes - Cardiovascular Cardiovascular exam: Present: regular rate and rhythm. Absent: gallop, rubs, systolic murmur - GI/Abdominal GI/Abdominal exam: Present: normal bowel sounds, tenderness, soft. Absent: distended, firm, guarding, rebound - Extremities Exam Extremities exam: Present: normal inspection. Absent: calf tenderness, edema Results - Labs CBC & BMP: 09/28/16 05:53 09/28/16 05:53 Lab Results: I have reviewed the past 24 hour labs
--- NOTE | 2016-09-28 15:32 | XRay Report ---
Exam: XR chest 1V portable Date: 09/28/2016 1:53 PM Indication: Hypoxia Comparison: 06/07/2014 Technical: AP portable Findings: Cardiomegaly present with left basilar atelectatic change present. No obvious infiltrate or effusion. Mediastinum bony structures are otherwise intact. Impression: 1. Left basilar atelectatic change and/or infiltrate or effusion 2. Cardiomegaly PROCEDURE INTERPRETED AT [facility] DEPARTMENT OF RADIOLOGY Final Report Signed by: Dr. Douglas Reyes
--- NOTE | 2016-09-28 15:40 | XRay Report ---
Exam: XR KUB Date: 09/28/2016 1:55 PM Indication: Abdominal pain and distention Comparison: None Technical: Supine image Findings: Mild gaseous distention of the large and small bowel present. The liver spleen and renal shadows are not well seen. Bony structures reveal degenerative changes of the lumbar spine. Phleboliths in the true pelvis. Impression: 1. At minimum component of the abdominal ileus present. Moderate fecal debris in the left colon is noted. PROCEDURE INTERPRETED AT [facility] DEPARTMENT OF RADIOLOGY Final Report Signed by: Dr. Douglas Reyes
[2016-09-28] MEDS: SODIUM CHLORIDE 0.9% 1,000 ML IV SCH ×2 (16:44→16:47)
[2016-09-28] MEDS: amLODIPine 10 MG TABLET PO SCH (18:39)
[2016-09-28] MEDS: ENOXAPARIN 40 MG/0.4 ML SYRINGE SUBCUT SCH (18:39)
[2016-09-28] MEDS: ATORVASTATIN 10 MG TABLET PO SCH (18:39)
--- NOTE | 2016-09-28 19:10 | ECHO Report ---
Roya Crum Exam Date: 09/28/2016 15:29 Referring Physician: Technologist: Osiris Trivedi RDCS Age: 55 Ht (in): 62 Wt (lb): 182 Gender: F Exam Location: [facility] Echo Indications: Acute alcoholic pancreatitis, Bibasilar crackles, Essential (primary) hypertension BP: 113 / 77 HR: 61 Rhythm: Sinus Technical Quality: Good IMPRESSIONS 1. Left ventricle is normal size systolic function with ejection fraction of 65+ percent. No segmental wall motion abnormalities are noted. Wall thickness is normal. 2. Left atrium and right atrium are probably minimally enlarged. 3. Right ventricle is normal size and systolic function. 4. Valvular structures are grossly anatomically and functionally normal without Doppler abnormalities. 5. There is no evidence of elevated right-sided pressures. MEASUREMENTS (Male / Female) Normal Values 2D ECHO LV Diastolic Diameter PLAX 3.7 cm 4.2 - 5.9 / 3.9 - 5.3 cm LV Systolic Diameter PLAX 2.2 cm LV Fractional Shortening PLAX 40.4 % IVS Diastolic Thickness 1.0 cm 0.6 - 1.0 / 0.6 - 0.9 cm LVPW Diastolic Thickness 1.0 cm 0.6 - 1.0 / 0.6 - 0.9 cm RV Internal Dim ED PLAX 2.5 cm Aortic Root Diameter 2.9 cm LA Systolic Diameter LX 3.8 cm 3.0 - 4.0 / 2.7 - 3.8 cm DOPPLER TR Peak Velocity 240.0 cm/s TR Peak Gradient 23.0 mmHg FINDINGS Left Ventricle Normal left ventricular cavity size. Normal left ventricular wall thickness. Left ventricular ejection fraction is estimated at 65 %. Right Ventricle The right ventricle is normal in size and function. Right Atrium MIld atrial enlargement in apical view (elongated RA). Left Atrium Mild atrial enlargement in apical view (elongated LA). Mitral Valve Morphologically normal mitral valve. Trace mitral valve regurgitation. Aortic Valve Morphologically normal aortic valve without significant sclerosis or stenosis. There is no aortic regurgitation. Tricuspid Valve Morphologically normal tricuspid valve. Trace to mild tricuspid valve regurgitation. Tricuspid regurgitation velocities suggest a PAP of 33 mmHg. Pulmonic Valve Morphologically normal pulmonic valve. Trace pulmonary valve regurgitation. Pericardium Normal pericardium without effusion. Pericardial fat pad anteriorly. Possible pleural effusion. Aorta Normal ascending aorta dimension. Dario Juarez MD (Electronically Signed) Final Date: 28 September 2016 19:09
[2016-09-28] MEDS: DOXEPIN 100 MG CAPSULE PO SCH (20:14)
[2016-09-28] MEDS: MIRTAZAPINE 15 MG TABLET PO SCH (20:15)
[2016-09-28] MEDS: QUEtiapine 100 MG TABLET PO SCH (20:15)
[2016-09-29] MEDS: THIAMINE INJ 100 MG, FOLIC ACID INJ 1 MG, MULTIVITAMIN INJ 10 ML in SODIUM CHLORIDE 0.4... IV SCH (01:11)
[2016-09-29] MEDS: ONDANSETRON 4 MG/2 ML VIAL IV PRN ×3 (02:43→18:41)
[2016-09-29] MEDS: HYDROmorphone 2 MG/1 ML VIAL IV PRN ×5 (02:44→21:59)
[2016-09-29] MEDS: metroNIDAZOLE INJ 500 MG in PREMIX 1 EACH IV SCH ×4 (03:15→22:35)
[2016-09-29] MEDS: CIPROFLOXACIN INJ 400 MG in PREMIX 1 EACH IV SCH ×2 (07:49→18:42)
[2016-09-29] MEDS: PANTOPRAZOLE 40 MG TABLET PO SCH (08:24)
[2016-09-29] MEDS: hydroCHLOROthiazide 12.5 MG CAPSULE PO SCH (08:24)
[2016-09-29] MEDS: PROPRANOLOL 20 MG TABLET PO SCH ×3 (08:25→22:00)
[2016-09-29] MEDS: DULoxetine 30 MG CAPSULE PO SCH ×2 (08:25→22:01)
[2016-09-29] MEDS: NICOTINE 21 MG/24 HR PATCH TRANSDERM PRN (09:34)
[2016-09-29] MEDS: DOCUSATE SODIUM 100 MG CAPSULE PO PRN (09:50)
[2016-09-29] MEDS ORDERED: SODIUM PHOSPHATE ENEMA 133 ML BOTTLE RECTAL ONE (13:12)
--- NOTE | 2016-09-29 13:13 | Hospitalist Progress Note ---
Assessment and Plan - Time spent with patient Time spent with patient: Greater than 30 minutes (1) Acute alcoholic pancreatitis Status: Acute Assessment and plan: CT reveals possible pseudocyst. GI is involved. Continue current management. Current Visit: Yes (2) Bibasilar crackles Status: Acute Assessment and plan: Order chest x-ray and cardiac ultrasound. Current Visit: Yes Hospitalist: Subjective Interval history: Reports improved abdominal pain. Was hungry last night. Exam - Constitutional Vitals: Period Temp Pulse Resp BP Sys/Rodriguez Pulse Ox Last 24 Hr 97.3 F-98.5 F 64-80 18-19 100-128/68-78 90-94 General appearance: no acute distress - Head Head exam: Present: normocephalic, atraumatic - Eye Eye exam: Present: EOMI Pupils: Present: DORIS - ENT ENT exam: Present: normal exam - Neck Neck exam: Present: normal inspection - Respiratory Respiratory exam: Present: clear to auscultation bilaterally. Absent: rhonchi, wheezes - Cardiovascular Cardiovascular exam: Present: regular rate and rhythm. Absent: gallop, rubs, systolic murmur - GI/Abdominal GI/Abdominal exam: Present: normal bowel sounds, soft. Absent: distended, firm , guarding, tenderness, rebound - Extremities Exam Extremities exam: Present: normal inspection. Absent: calf tenderness, edema Results - Labs CBC & BMP: 09/28/16 05:53 09/28/16 05:53 Lab Results: I have reviewed the past 24 hour labs
[2016-09-29] MEDS: SODIUM CHLORIDE 0.45% 1,000 ML IV SCH (16:06)
[2016-09-29] MEDS: ENOXAPARIN 40 MG/0.4 ML SYRINGE SUBCUT SCH (18:42)
[2016-09-29] MEDS: amLODIPine 10 MG TABLET PO SCH (18:42)
[2016-09-29] MEDS: ATORVASTATIN 10 MG TABLET PO SCH (18:42)
[2016-09-29] MEDS: QUEtiapine 100 MG TABLET PO SCH (22:00)
[2016-09-29] MEDS: MIRTAZAPINE 15 MG TABLET PO SCH (22:01)
[2016-09-29] MEDS: DOXEPIN 100 MG CAPSULE PO SCH (22:02)
[2016-09-30] MEDS: SODIUM CHLORIDE 0.45% 1,000 ML IV SCH ×2 (03:56→08:26)
[2016-09-30] MEDS: HYDROmorphone 2 MG/1 ML VIAL IV PRN ×5 (04:02→22:07)
[2016-09-30] MEDS: metroNIDAZOLE INJ 500 MG in PREMIX 1 EACH IV SCH ×3 (04:26→15:28)
[2016-09-30 05:14] LABS: Basophils % 0.2 % (0.0-0.8); Eosinophils # 0.1 10*3/uL (0.0-0.87); Eosinophils % 2.4 % (0.00-10.9); Hematocrit 37.5 VOL% (35.7-47.0); Immature Granulocytes % 0.5 %; Immature Granulocytes Absolute 0.02 #; Lymphocytes # 0.9 10*3/uL (1.4-4.0); Lymphocytes % 21.8 % (21.3-54.2); Mean Corpuscular Hemoglobin 32 PG (27-34); Mean Corpuscular Volume 101.4 FL (87-102); Mean Platelet Volume 10.3 FL (9.6-12.0); Monocytes # 0.4 10*3/uL (0.11-0.8); Monocytes % 10.2 % (1.7-12.7); Neutrophils # 2.7 10*3/uL (1.4-7.4); Neutrophils % 64.9 % (38.7-73.9); Platelet Count 228 T/CUMM (130-400); Red Cell Distribution Width 14.1 % (9.3-17.3); White Blood Count 4.2 T/CUMM (4-12)
[2016-09-30 05:45] LABS: Calcium 8.3 MG/DL (8.5-10.1); Osmolality,Calculated 278.1 MOS/KG (273-304); Potassium 3.3 MMOL/L (3.5-5.1)
[2016-09-30] MEDS: CIPROFLOXACIN INJ 400 MG in PREMIX 1 EACH IV SCH ×2 (07:02→21:58)
[2016-09-30] MEDS: DULoxetine 30 MG CAPSULE PO SCH ×2 (08:28→21:57)
[2016-09-30] MEDS: hydroCHLOROthiazide 12.5 MG CAPSULE PO SCH (08:28)
[2016-09-30] MEDS: DOCUSATE SODIUM 100 MG CAPSULE PO PRN (08:28)
[2016-09-30] MEDS: PANTOPRAZOLE 40 MG TABLET PO SCH (08:28)
[2016-09-30] MEDS: PROPRANOLOL 20 MG TABLET PO SCH ×3 (08:28→21:56)
[2016-09-30] MEDS: NICOTINE 21 MG/24 HR PATCH TRANSDERM PRN (08:29)
[2016-09-30] MEDS: POTASSIUM CHLORIDE RIDER 10 MEQ in PREMIX 1 EACH IV PRN ×4 (11:18→19:21)
--- NOTE | 2016-09-30 13:41 | Hospitalist Progress Note ---
Assessment and Plan - Time spent with patient Time spent with patient: Greater than 30 minutes (1) Acute alcoholic pancreatitis Status: Acute Assessment and plan: CT reveals possible pseudocyst. GI is involved. Continue current management. Current Visit: Yes Hospitalist: Subjective Interval history: No complaints or overnight events. Exam - Constitutional Vitals: Period Temp Pulse Resp BP Sys/Rodriguez Pulse Ox Last 24 Hr 96.8 F-98.0 F 65-74 16-20 96-138/63-84 93-96 General appearance: no acute distress - Head Head exam: Present: normocephalic, atraumatic - Eye Eye exam: Present: EOMI Pupils: Present: DORIS - ENT ENT exam: Present: normal exam - Neck Neck exam: Present: normal inspection - Respiratory Respiratory exam: Present: clear to auscultation bilaterally. Absent: rhonchi, wheezes - Cardiovascular Cardiovascular exam: Present: regular rate and rhythm. Absent: gallop, rubs, systolic murmur - GI/Abdominal GI/Abdominal exam: Present: normal bowel sounds, tenderness, soft. Absent: distended, firm, guarding, rebound - Extremities Exam Extremities exam: Present: normal inspection. Absent: calf tenderness, edema Results - Labs CBC & BMP: 09/30/16 04:30 09/30/16 04:30 Lab Results: I have reviewed the past 24 hour labs
[2016-09-30] MEDS: amLODIPine 10 MG TABLET PO SCH (18:23)
[2016-09-30] MEDS: ENOXAPARIN 40 MG/0.4 ML SYRINGE SUBCUT SCH ×2 (18:23→21:59)
[2016-09-30] MEDS: ATORVASTATIN 10 MG TABLET PO SCH (18:23)
[2016-09-30] MEDS: MIRTAZAPINE 15 MG TABLET PO SCH (21:56)
[2016-09-30] MEDS: DOXEPIN 100 MG CAPSULE PO SCH (21:57)
[2016-09-30] MEDS: QUEtiapine 100 MG TABLET PO SCH (21:57)
[2016-10-01] MEDS: metroNIDAZOLE INJ 500 MG in PREMIX 1 EACH IV SCH ×4 (00:12→15:33)
[2016-10-01] MEDS: SODIUM CHLORIDE 0.45% 1,000 ML IV SCH ×5 (01:23→18:49)
[2016-10-01] MEDS: HYDROmorphone 2 MG/1 ML VIAL IV PRN ×4 (06:58→22:00)
[2016-10-01] MEDS: CIPROFLOXACIN INJ 400 MG in PREMIX 1 EACH IV SCH ×2 (08:48→21:47)
[2016-10-01] MEDS: hydroCHLOROthiazide 12.5 MG CAPSULE PO SCH (08:49)
[2016-10-01] MEDS: PANTOPRAZOLE 40 MG TABLET PO SCH (08:49)
[2016-10-01] MEDS: DULoxetine 30 MG CAPSULE PO SCH ×2 (08:49→21:50)
[2016-10-01] MEDS: PROPRANOLOL 20 MG TABLET PO SCH ×3 (08:49→21:50)
--- NOTE | 2016-10-01 09:57 | Gastrointestinal Progress Note ---
Assessment and Plan (1) Acute on chronic pancreatitis Status: Acute Assessment and plan: 10/01-pain continues but improved from onset. Nausea without vomiting. Tolerating clear liquids at present. Lipase down to 487 on yesterday. Continue to monitor at present. Plan an addendum to followed by Dr. Estevez 09/28-pain is controlled with analgesics at present, nausea relieved with Zofran. Resting comfortably. Lipase level pending. Plan an addendum to followed by Dr. Estevez 09/27-history of pancreatitis since 2011 being the fourth episode since initial onset. Lipase levels trending down at [address] findings noted below. Continue to monitor, keep n.p.o., analgesics as needed. Add Benadryl for opioid-induced itching. Plan an addendum to follow by Dr. Estevez Current Visit: Yes Gastroenterology - PN: Subj Interval history: CC: Pancreatitis Patient is seen awake and alert lying in bed. States that she had an uneventful weekend. States that her abdominal pain is some better however she still has episodes that is moderate to severe. She is having continued nausea as well without vomiting. Her lipase levels on yesterday have trended down to 487. She is afebrile. Tolerating small amounts of clear liquids. Abdomen soft , mild tenderness with palpation. No signs of DTs at present time. ROS: Denies shortness of breath or chest pain. Exam (Progress Note) - Constitutional Vitals: Period Temp Pulse Resp BP Sys/Rodriguez Pulse Ox Last 24 Hr 97.7 F-98.6 F 60-67 16-20 95-133/60-85 93-98 - Other Additional findings: General appearance: normal weight, no acute distress - Head Head exam: Present: normal inspection, normocephalic - Eye Eye exam: Present: other (Lids and conjunctivae unremarkable). Absent: scleral icterus - ENT ENT exam: Present: normal exam, normal oropharynx - Neck Neck exam: Present: normal inspection - Respiratory Respiratory exam: Present: clear to auscultation bilaterally. Absent: rales, rhonchi, wheezes - Cardiovascular Cardiovascular exam: Present: regular rate and rhythm. Absent: diastolic murmur , JVD, systolic murmur - GI/Abdominal GI/Abdominal exam: Present: normal bowel sounds, tenderness, soft. Absent: ascites, distended, mass, organomegaly - Extremities Exam Extremities exam: Present: normal inspection, full ROM - Back Exam Back exam: Present: normal inspection - Neurological Exam Neurological exam: Present: alert, oriented X3 - Psychiatric Psychiatric exam: Present: normal affect, normal mood - Skin Skin exam: Present: normal color, warm, dry Results - Labs CBC & BMP: 09/30/16 04:30 10/01/16 05:51 Lab Results: I have reviewed the past 24 hour labs
[2016-10-01] MEDS: POTASSIUM CHLORIDE 20 MEQ TABLET PO PRN (12:38)
--- NOTE | 2016-10-01 13:34 | Hospitalist Progress Note ---
Assessment and Plan - Time spent with patient Time spent with patient: Greater than 30 minutes (1) Acute alcoholic pancreatitis Status: Acute Assessment and plan: CT reveals possible pseudocyst. GI is involved. Continue current management. Current Visit: Yes Hospitalist: Subjective Interval history: states she feels much better. Complains of continued epigastric pain, no nausea. Tolerating clear liquids. Exam - Constitutional Vitals: Period Temp Pulse Resp BP Sys/Rodriguez Pulse Ox Last 24 Hr 97.7 F-98.6 F 58-67 16-20 95-133/60-85 89-98 General appearance: normal weight, no acute distress - Head Head exam: Present: normocephalic, atraumatic - Eye Eye exam: Present: EOMI Pupils: Present: DORIS - ENT ENT exam: Present: normal exam - Neck Neck exam: Present: normal inspection - Respiratory Respiratory exam: Present: other (crackles at the bases bilaterally.). Absent: rhonchi, wheezes - Cardiovascular Cardiovascular exam: Present: regular rate and rhythm. Absent: gallop, rubs, systolic murmur - GI/Abdominal GI/Abdominal exam: Present: normal bowel sounds, tenderness, soft. Absent: distended, firm, guarding, rebound - Extremities Exam Extremities exam: Present: normal inspection. Absent: calf tenderness, edema Results - Labs CBC & BMP: 09/30/16 04:30 10/01/16 05:51 Lab Results: I have reviewed the past 24 hour labs
[2016-10-01] MEDS: NICOTINE 21 MG/24 HR PATCH TRANSDERM PRN (15:35)
[2016-10-01] MEDS: amLODIPine 10 MG TABLET PO SCH (18:47)
[2016-10-01] MEDS: ATORVASTATIN 10 MG TABLET PO SCH (18:47)
[2016-10-01] MEDS: DOXEPIN 100 MG CAPSULE PO SCH (21:49)
[2016-10-01] MEDS: MIRTAZAPINE 15 MG TABLET PO SCH (21:49)
[2016-10-01] MEDS: ENOXAPARIN 40 MG/0.4 ML SYRINGE SUBCUT SCH (21:50)
[2016-10-01] MEDS: QUEtiapine 100 MG TABLET PO SCH (21:51)
[2016-10-02] MEDS: metroNIDAZOLE INJ 500 MG in PREMIX 1 EACH IV SCH ×5 (05:30→22:12)
[2016-10-02 07:18] LABS: Basophils % 0.6 % (0.0-0.8); Eosinophils # 0.1 10*3/uL (0.0-0.87); Eosinophils % 3.2 % (0.00-10.9); Hematocrit 37.6 VOL% (35.7-47.0); Hemoglobin 12.1 GM/DL (12.0-16.0); Immature Granulocytes % 0.3 %; Immature Granulocytes Absolute 0.01 #; Lymphocytes # 0.9 10*3/uL (1.4-4.0); Lymphocytes % 25.9 % (21.3-54.2); Mean Corpuscular HGB Conc 32.2 GM/DL (32-36); Mean Corpuscular Hemoglobin 32 PG (27-34); Mean Corpuscular Volume 100.5 FL (87-102); Mean Platelet Volume 10.7 FL (9.6-12.0); Monocytes # 0.5 10*3/uL (0.11-0.8); Platelet Count 251 T/CUMM (130-400); Red Blood Count 3.74 MC/CUMM (3.8-5.5); Red Cell Distribution Width 14.8 % (9.3-17.3); White Blood Count 3.5 T/CUMM (4-12)
[2016-10-02] MEDS: SODIUM CHLORIDE 0.45% 1,000 ML IV SCH ×2 (07:30→09:01)
[2016-10-02 08:14] LABS: Calcium 8.2 MG/DL (8.5-10.1); Osmolality,Calculated 283.7 MOS/KG (273-304); Potassium 3.5 MMOL/L (3.5-5.1)
--- NOTE | 2016-10-02 08:42 | Gastrointestinal Progress Note ---
Assessment and Plan (1) Acute on chronic pancreatitis Status: Acute Assessment and plan: 10/02-abdominal pain significantly less. No nausea or vomiting. Tolerating clear liquids. Advance to full liquid diet today. Plan an addendum to followed by Dr. Estevez. 10/01-pain continues but improved from onset. Nausea without vomiting. Tolerating clear liquids at present. Lipase down to 487 on yesterday. Continue to monitor at present. Plan an addendum to followed by Dr. Estevez 09/28-pain is controlled with analgesics at present, nausea relieved with Zofran. Resting comfortably. Lipase level pending. Plan an addendum to followed by Dr. Estevez 09/27-history of pancreatitis since 2011 being the fourth episode since initial onset. Lipase levels trending down at [address] findings noted below. Continue to monitor, keep n.p.o., analgesics as needed. Add Benadryl for opioid-induced itching. Plan an addendum to follow by Dr. Estevez Current Visit: Yes Gastroenterology - PN: Subj Interval history: CC: Pancreatitis Patient is seen awake and alert lying in bed. States she had a restful night. States she was able to make it throughout the night without pain medication. She is tolerating clear liquids and denies any postprandial pain following this. She denies any further nausea or vomiting at this point. Abdomen is soft , nontender. No signs of DTs noted. ROS: Denies shortness of breath or chest pain Exam (Progress Note) - Constitutional Vitals: Period Temp Pulse Resp BP Sys/Rodriguez Pulse Ox Last 24 Hr 96.6 F-98.5 F 58-71 18-20 90-118/60-79 89-98 - Other Additional findings: General appearance: normal weight, no acute distress - Head Head exam: Present: normal inspection, normocephalic - Eye Eye exam: Present: other (Lids and conjunctivae unremarkable). Absent: scleral icterus - ENT ENT exam: Present: normal exam, normal oropharynx - Neck Neck exam: Present: normal inspection - Respiratory Respiratory exam: Present: clear to auscultation bilaterally. Absent: rales, rhonchi, wheezes - Cardiovascular Cardiovascular exam: Present: regular rate and rhythm. Absent: diastolic murmur , JVD, systolic murmur - GI/Abdominal GI/Abdominal exam: Present: normal bowel sounds, tenderness, soft. Absent: ascites, distended, mass, organomegaly - Extremities Exam Extremities exam: Present: normal inspection, full ROM - Back Exam Back exam: Present: normal inspection - Neurological Exam Neurological exam: Present: alert, oriented X3 - Psychiatric Psychiatric exam: Present: normal affect, normal mood - Skin Skin exam: Present: normal color, warm, dry Results - Labs CBC & BMP: 10/02/16 06:49 10/02/16 06:49 Lab Results: I have reviewed the past 24 hour labs
[2016-10-02] MEDS: CIPROFLOXACIN INJ 400 MG in PREMIX 1 EACH IV SCH ×2 (08:58→19:01)
[2016-10-02] MEDS: HYDROmorphone 2 MG/1 ML VIAL IV PRN ×4 (08:59→23:49)
[2016-10-02] MEDS: DULoxetine 30 MG CAPSULE PO SCH ×2 (08:59→22:17)
[2016-10-02] MEDS: PROPRANOLOL 20 MG TABLET PO SCH ×4 (08:59→22:21)
[2016-10-02] MEDS: POTASSIUM CHLORIDE 20 MEQ TABLET PO PRN ×2 (09:00→11:57)
[2016-10-02] MEDS: PANTOPRAZOLE 40 MG TABLET PO SCH (09:00)
[2016-10-02] MEDS: hydroCHLOROthiazide 12.5 MG CAPSULE PO SCH (09:00)
[2016-10-02] MEDS: NICOTINE 21 MG/24 HR PATCH TRANSDERM PRN (15:22)
[2016-10-02] MEDS ORDERED: FUROSEMIDE 40 MG/4 ML VIAL IV ONE (15:23)
--- NOTE | 2016-10-02 15:43 | Hospitalist Progress Note ---
Assessment and Plan - Time spent with patient Time spent with patient: Greater than 30 minutes (1) Acute alcoholic pancreatitis Status: Acute Assessment and plan: CT reveals possible pseudocyst. GI is involved. Appreciate their assistance. Advance to full liquids. Current Visit: Yes (2) Bibasilar crackles Status: Acute Assessment and plan: Due to aggressive fluid resuscitation. Heart function is completely normal. Will administer Lasix 40 mg IV 1. Current Visit: Yes Hospitalist: Subjective Interval history: Patient states she like to go home. She still has left upper quadrant abdominal pain. No overnight events. Tolerating liquid diet just recently advanced to full. Exam - Constitutional Vitals: Period Temp Pulse Resp BP Sys/Rodriguez Pulse Ox Last 24 Hr 96.6 F-98.5 F 60-71 18-20 90-110/60-72 93-98 General appearance: no acute distress - Head Head exam: Present: normocephalic, atraumatic - Eye Eye exam: Present: EOMI Pupils: Present: DORIS - ENT ENT exam: Present: normal exam - Neck Neck exam: Present: normal inspection - Respiratory Respiratory exam: Present: other (Crackles bibasilar). Absent: rhonchi, wheezes - Cardiovascular Cardiovascular exam: Present: regular rate and rhythm. Absent: gallop, rubs, systolic murmur - GI/Abdominal GI/Abdominal exam: Present: normal bowel sounds, soft. Absent: distended, firm , guarding, tenderness, rebound - Extremities Exam Extremities exam: Present: normal inspection. Absent: calf tenderness, edema Results - Labs CBC & BMP: 10/02/16 06:49 10/02/16 06:49 Lab Results: I have reviewed the past 24 hour labs
[2016-10-02] MEDS: amLODIPine 10 MG TABLET PO SCH ×2 (19:01→19:05)
[2016-10-02] MEDS: ATORVASTATIN 10 MG TABLET PO SCH (19:01)
[2016-10-02] MEDS: ENOXAPARIN 40 MG/0.4 ML SYRINGE SUBCUT SCH (19:01)
[2016-10-02] MEDS: QUEtiapine 100 MG TABLET PO SCH (22:18)
[2016-10-02] MEDS: DOXEPIN 100 MG CAPSULE PO SCH (22:18)
[2016-10-02] MEDS: MIRTAZAPINE 15 MG TABLET PO SCH (22:19)
[2016-10-03] MEDS: metroNIDAZOLE INJ 500 MG in PREMIX 1 EACH IV SCH ×2 (06:55→12:41)
--- NOTE | 2016-10-03 08:43 | Gastrointestinal Progress Note ---
Assessment and Plan (1) Acute on chronic pancreatitis Status: Acute Assessment and plan: 10/03-abdominal pain improved. Tolerating small amounts of soft diet. Afebrile. Okay to discharge home from GI standpoint. Patient to follow-up only as needed. Alcohol cessation discussed with patient. Plan an addendum to followed by Dr. Estevez 10/02-abdominal pain significantly less. No nausea or vomiting. Tolerating clear liquids. Advance to full liquid diet today. Plan an addendum to followed by Dr. Estevez. 10/01-pain continues but improved from onset. Nausea without vomiting. Tolerating clear liquids at present. Lipase down to 487 on yesterday. Continue to monitor at present. Plan an addendum to followed by Dr. Estevez 09/28-pain is controlled with analgesics at present, nausea relieved with Zofran. Resting comfortably. Lipase level pending. Plan an addendum to followed by Dr. Estevez 09/27-history of pancreatitis since 2011 being the fourth episode since initial onset. Lipase levels trending down at [address] findings noted below. Continue to monitor, keep n.p.o., analgesics as needed. Add Benadryl for opioid-induced itching. Plan an addendum to follow by Dr. Estevez Current Visit: Yes Gastroenterology - PN: Subj Interval history: CC: Pancreatitis Patient is seen awake and alert sitting up in bed. States she is feeling better today. States her pain is much improved and has just more of mild discomfort at present. Her diet was advanced this morning and she is tolerating solid food however not much of an appetite at this time. Denies nausea vomiting. Afebrile. Abdomen is soft, nontender. Discussed alcohol cessation with patient and possibilities of seeking outside assistance with this however patient states she is financially unable to pursue inpatient rehab again. This has been successful for her in the past however she feels like she needs to try to manage this at home the best she can. Again, her spouse is not aware of the frequency of her drinking habits. Discussed with patient symptoms she would need to seek medical attention for following discharge ROS: Denies shortness of breath or chest pain Exam (Progress Note) - Constitutional Vitals: Period Temp Pulse Resp BP Sys/Rodriguez Pulse Ox Last 24 Hr 96.0 F-98.5 F 60-72 18-20 101-112/55-72 90-93 - Other Additional findings: General appearance: normal weight, no acute distress - Head Head exam: Present: normal inspection, normocephalic - Eye Eye exam: Present: other (Lids and conjunctivae unremarkable). Absent: scleral icterus - ENT ENT exam: Present: normal exam, normal oropharynx - Neck Neck exam: Present: normal inspection - Respiratory Respiratory exam: Present: clear to auscultation bilaterally. Absent: rales, rhonchi, wheezes - Cardiovascular Cardiovascular exam: Present: regular rate and rhythm. Absent: diastolic murmur , JVD, systolic murmur - GI/Abdominal GI/Abdominal exam: Present: normal bowel sounds, tenderness, soft. Absent: ascites, distended, mass, organomegaly - Extremities Exam Extremities exam: Present: normal inspection, full ROM - Back Exam Back exam: Present: normal inspection - Neurological Exam Neurological exam: Present: alert, oriented X3 - Psychiatric Psychiatric exam: Present: normal affect, normal mood - Skin Skin exam: Present: normal color, warm, dry Results - Labs CBC & BMP: 10/02/16 06:49 10/02/16 06:49 Lab Results: I have reviewed the past 24 hour labs
[2016-10-03] MEDS: HYDROmorphone 2 MG/1 ML VIAL IV PRN ×2 (08:56→13:07)
[2016-10-03] MEDS: hydroCHLOROthiazide 12.5 MG CAPSULE PO SCH (08:57)
[2016-10-03] MEDS: PANTOPRAZOLE 40 MG TABLET PO SCH (08:57)
[2016-10-03] MEDS: DULoxetine 30 MG CAPSULE PO SCH (08:57)
[2016-10-03] MEDS: CIPROFLOXACIN INJ 400 MG in PREMIX 1 EACH IV SCH (08:57)
[2016-10-03] MEDS: PROPRANOLOL 20 MG TABLET PO SCH (08:57)
[2016-10-03 11:22] VITALS: BP 108/73
--- NOTE | 2016-10-03 12:37 | Discharge Summary ---
Hospital Course - Hospital Course Hospital Course: 55-year-old white female with history of previous admissions for acute alcoholic pancreatitis, depression, fibromyalgia and hypertension admitted by the hospitalist service with acute alcoholic pancreatitis. Patient is adamantly denying her alcohol use but her serum alcohol level was 168. Patient' s case has been discussed with Dr. Jules the admitting hospitalist. Further recommendations to follow Acute alcoholic pancreatitis--IV fluid, pain and nausea control, consult Dr. Estevez since he is seen her previously. We will go ahead and hang a banana bag since patient's alcohol use and amount is unknown. Start antibiotics. Hypertension--restart patient's home meds and monitor Tobacco abuse--order nicotine patch Depression/fibromyalgia--restart home meds She was seen by Dr. Estevez for gastroenterology. She has improved with IV fluids. She has been afebrile and is received full course of Cipro and Flagyl during the course of this hospitalization. She has reached maximal benefit from this inpatient hospitalization and is being discharged home. She understands that she can no longer drink any alcohol and by doing so she is at high risk for recurrent pancreatitis. The patient's home medications were reviewed and reconciled. Pain medications were prescribed at discharge for short duration to help manage her persistent abdominal pain related to her pancreatitis. Patient is a full code. She is discharged home in stable condition to follow- up with her primary care physician. - Time spent with patient Time with patient DS: Greater than 30 minutes (Total discharge time for this patient, including [id number] time, clinical documentation, medication reconciliation, and discharge planning was 33 minutes.) Diagnosis - Discharge Diagnosis (1) Acute alcoholic pancreatitis Status: Acute (2) Acute on chronic pancreatitis Status: Acute (3) Depression Status: Acute (4) Fibromyalgia Status: Acute (5) Tobacco abuse Status: Acute Discharge Plan - Discharge Data Disposition: Disch To Home/Self Care Condition at Discharge: Stable Discharge Diet: advance to your usual diet Activity: resume usual activities as tolerated Hygiene: no restrictions Weight Bearing at Discharge: full weight bearing Driving: no restrictions Contact your physician if you experience:: fever over 101 - Discharge Medications New Nicotine 21 mg/24 Hr Patch [Nicoderm CQ 21 mg/24 hr Patch] 1 patch TRANSDERM DAILY PRN #0 patch PRN Reason: Nicotine Cravings amLODIPine [Norvasc] 10 mg PO QPM tablet HYDROcodone/ACETAMIN 5-325 [[place] 5-325] 1 tablet PO Q4H PRN #30 tablet PRN Reason: Pain Mild (1-3) Pantoprazole Tab [Protonix Tab] 40 mg PO DAILY #30 tablet Continue QUEtiapine [SEROquel] 100 mg PO BEDTIME Propranolol HCl [Propranolol Tab] 20 mg PO TID Mirtazapine 30 mg PO BEDTIME Pantoprazole Tab [Protonix Tab] 40 mg PO QAM Atorvastatin [Lipitor] 10 mg PO QPM Tizanidine HCl 2 mg PO TID PRN PRN Reason: Muscle Spasm Loratadine [Claritin] 10 mg PO DAILY PRN PRN Reason: Allergy Symptoms Duloxetine HCl [Cymbalta] 60 mg PO BID Propranolol Tab [Inderal Tab] 20 mg PO TID Benzonatate [Tessalon] 200 mg PO TID PRN PRN Reason: Cough Doxepin [SINEquan] 100 mg PO BEDTIME hydroCHLOROthiazide [Hydrochlorothiazide] 12.5 mg PO QAM Fluticasone 50 Mcg Nasal [place] [Flonase Nasal [place]] 1 spray BOTH NARES DAILY PRN PRN Reason: Allergy Symptoms Beclomethasone 40 Mcg Inhaler [Qvar 40 Mcg] 2 puffs PO BID Albuterol Sulfate [Proair HFA] 2 puffs PO BID - Follow Up or Referral - Forms/Instructions Instructions: Hydrocodone/Acetaminophen (By mouth), Pantoprazole (By mouth), Pancreatitis (DC), Fibromyalgia (DC), Alcohol Intoxication (DC) Exam - Constitutional Vitals: Period Temp Pulse Resp BP Sys/Rodriguez Pulse Ox Last 24 Hr 96.0 F-98.4 F 61-72 16-20 101-112/55-73 90-96 DS: Provider Date of admission: 09/26/16 17:43 Primary care physician: . No PCP Attending physician on admission: Kenzie King MD Consults: 09/26/16 19:11 Consult to Physician [CONS] Routine Comment: pt of yours adm w etoh pancreatitis Consulting Provider: Douglas Estevez When should Consulting Provider be notified: In am Person Notified: Evan Date Notified: 09/27/16 Time Notified: 09:50 Discharging clinician: Torey Webster MD Expected date of discharge: 10/03/16
--- NOTE | 2016-10-11 07:26 | Physician Query Form ---
CLICK EDIT DOCUMENT TO SELECT QUERY ANSWER --> OK --> SIGN Rena Marques RN, CCDS Certified Clinical Telephone Directory Deliverer W) [phone] (f) [phone] [email or web address] PROVIDERS: Make your selection(s) from the choices in EACH section by typing an "x" and enter comments in the comment section. Please use your independent medical judgment in providing your response. This request does not imply that any particular answer is desired or expected. CLINICAL INDICATORS: (Providers should not edit this section) The below diagnosis was documented in the record, but is not consistently noted in subsequent documentation. "CT reveals possible pseudocyst. GI is involved. Appreciate their assistance. " Diagnosis: POSSIBLE PSEUDOCYST Please clarify the following: ( ) The above diagnosis was monitored, evaluated, and/or treated and is a confirmed diagnosis ( ) The above diagnosis was ruled out (X ) The above diagnosis is still a likely, suspected, probable diagnosis ( ) Other, please specify: ( ) Clinically unable to determine COMMENTS: Use of terms such as suspected, likely, or probable (associated with a specific diagnosis that is being evaluated, monitored, or treated as if it exists) are acceptable and can be restated in the discharge summary if not ruled out. [facility]
== END 2016-10-03 15:19 | disposition home or self-care (01) | DRG 439 ==
LOC: N.ED 15:57 → SUATTDRO 17:43 → N.EDINP 17:43 → N.5E 18:34
PROVIDERS: ADMIT Internal Medicine; ATTEND Family Medicine

== ENCOUNTER 2016-10-07 14:54 | Inpatient (IN) ==
[2016-10-07] MEDS ORDERED: MORPHINE 2 MG/1 ML SYRINGE IV STA ×2 (15:44→16:26)
[2016-10-07] MEDS ORDERED: ONDANSETRON 4 MG/2 ML VIAL IV STA (15:44)
[2016-10-07] MEDS ORDERED: SODIUM CHLORIDE 0.9% 1,000 ML IV STA (15:44)
[2016-10-07] MEDS ORDERED: ONDANSETRON 4 MG/2 ML VIAL ONE (15:48)
[2016-10-07] MEDS ORDERED: MORPHINE 2 MG/1 ML SYRINGE ONE ×2 (15:48→16:43)
[2016-10-07 16:02] LABS: Basophils # 0.1 10*3/uL (0.0-0.2); Basophils % 0.9 % (0.0-0.8); Eosinophils # 0.2 10*3/uL (0.0-0.87); Eosinophils % 3.4 % (0.00-10.9); Hematocrit 44.4 VOL% (35.7-47.0); Hemoglobin 14.9 GM/DL (12.0-16.0); Immature Granulocytes % 0.4 %; Immature Granulocytes Absolute 0.03 #; Lymphocytes # 1.4 10*3/uL (1.4-4.0); Lymphocytes % 21.2 % (21.3-54.2); Mean Corpuscular HGB Conc 33.6 GM/DL (32-36); Mean Corpuscular Hemoglobin 32 PG (27-34); Mean Corpuscular Volume 96.3 FL (87-102); Mean Platelet Volume 10.7 FL (9.6-12.0); Monocytes # 0.7 10*3/uL (0.11-0.8); Monocytes % 10.3 % (1.7-12.7); Neutrophils # 4.3 10*3/uL (1.4-7.4); Neutrophils % 63.8 % (38.7-73.9); Platelet Count 436 T/CUMM (130-400); Red Blood Count 4.61 MC/CUMM (3.8-5.5); White Blood Count 6.7 T/CUMM (4-12)
[2016-10-07 16:07] LABS: Apearance,Urine CLEAR (Clear); Bacteria,Urine Occasional /HPF (Few); Blood, Urine Negative (Negative); Glucose,Urine (UA) Negative (Negative); Hyaline Casts,Urine 4 /LPF (0-3); Ketones,Urine 5 mg/dL (Negative); Mucus,Urine Occasional /LPF (Occasional); Nitrite,Urine Negative (Negative); Protein,Urine 30 MG/DL; RBC,Urine 1 /HPF (0-4); Squamous Epithelial Cell,Urine Occasional /HPF (0-10); Urine Color Amber (Yellow); Urine Specific Gravity 1.031 (1.001-1.035); WBC,Urine 2 /HPF (0-6)
[2016-10-07 16:12] LABS: Bilirubin,Urine Small mg/dL (Negative)
[2016-10-07 16:32] LABS: Albumin 3.2 G/DL (3.4-5.0); Bilirubin,Total 0.4 MG/DL (0.2-1.0); Osmolality,Calculated 276.7 MOS/KG (273-304); Potassium 3.2 MMOL/L (3.5-5.1); Total Protein 7.7 G/DL (6.4-8.3)
--- NOTE | 2016-10-07 17:17 | Hospitalist History & Physical ---
<Michael Olvera - Last Filed: 10/07/16 17:44> Assessment and Plan (1) Acute pancreatitis Status: Acute Assessment and plan: Pt. will be admitted to med surg unit. IV hydration. Pain management. Routine vitals. Check lipase in am. Clear liquid diet. Current Visit: No (2) Depression Status: Chronic Current Visit: No (3) Fibromyalgia Status: Chronic Current Visit: No (4) Hypokalemia Status: Acute Assessment and plan: Implement K replacement protocol. Recheck in am. Current Visit: No History of Present Illness Chief complaint: pancreatitis History of present illness: Ms. Crum is a 55 year old white female patient with a history of pancreatitis, gerd, CHIARA, pneumonia, fibromyalgia, depression, anxiety, and tobacco abuse that presents to the ED today with complaints of severe epigastric pain and LUQ pain that radiates to her back that has progressively worsened since yesterday. The patient was recently discharged from our service on 10/03 after being admitted with pancreatitis. Pt. states she felt "ok" when discharged but was never completely pain free. She states she was taking prescribed discharge pain medications ([place] 5). Pt. states that yesterday while laying on the couch she just became ill. She denies fever and chills but reports night sweats on last night. Pt states that she was nausea and did vomit 2 times yesterday but none today. Pt. denied any changes in any bowel or urinary habits. Reports last bowel movement yesterday was normal. Pt does however report that she has been experiencing shortness of breath since her discharge. Pt. admits to heavy drinking in the past but has completed a course at [facility] and has not drank since March. She does smoke 1 pack of cigarettes a day. Lipase on 09/30 was 487. Today it is 712. Pt. will be admitted to our service for further eval and treatment. Home Medications Medication Instructions Recorded Confirmed Type Atorvastatin [Lipitor] 10 mg PO QPM 05/14/16 10/07/16 History Duloxetine HCl [Cymbalta] 60 mg PO BID 05/14/16 10/07/16 History Loratadine [Claritin] 10 mg PO DAILY PRN 05/14/16 10/07/16 History Mirtazapine 30 mg PO BEDTIME 05/14/16 10/07/16 History QUEtiapine [SEROquel] 100 mg PO BEDTIME 05/14/16 10/07/16 History Tizanidine HCl 2 mg PO TID PRN 05/14/16 10/07/16 History Albuterol Sulfate [Proair HFA] 2 puffs PO BID 09/26/16 10/07/16 History Beclomethasone 40 Mcg Inhaler 2 puffs PO BID 09/26/16 10/07/16 History [Qvar 40 Mcg] Benzonatate [Tessalon] 200 mg PO TID PRN 09/26/16 10/07/16 History Doxepin [SINEquan] 100 mg PO BEDTIME 09/26/16 10/07/16 History Fluticasone 50 Mcg Nasal [place] 1 spray BOTH NARES DAILY PRN 09/26/16 10/07/16 History [Flonase Nasal [place]] Propranolol Tab [Inderal Tab] 20 mg PO TID 09/26/16 10/07/16 History hydroCHLOROthiazide 12.5 mg PO QAM 09/26/16 10/07/16 History [Hydrochlorothiazide] HYDROcodone/ACETAMIN 5-325 [[place] 1 tablet PO Q4H PRN #30 tablet 10/03/16 Rx 5-325] Nicotine 21 mg/24 Hr Patch 1 patch TRANSDERM DAILY PRN #0 10/03/16 10/07/16 Rx [Nicoderm CQ 21 mg/24 hr Patch] patch amLODIPine [Norvasc] 10 mg PO QPM tablet 10/03/16 10/07/16 Rx Pantoprazole Tab [Protonix Tab] 40 mg PO QAM 10/07/16 10/07/16 History Allergies Allergy/AdvReac Type Severity Reaction Status Date / Time Penicillins Allergy Severe HIVES Verified 10/07/16 18:09 Sulfa (Sulfonamide Allergy Severe HIVES Verified 10/07/16 18:09 Antibiotics) Erythromycin Base Allergy Intermediate HIVES Verified 10/07/16 18:09 Medical,Surgical,& Family Hx - Medical History Cardio: History of: Hypertension Psychological: History of: Anxiety Disorders, Depression Neurology: No history of: Seizures Endocrine: History of: Dyslipidemia Rheumatology: History of;: Fibromyalgia Respiratory: History of: Asthma, Bronchitis, Obstructive Sleep Apnea (Does not wear C-pap), Pneumonia Gastrointestinal: History of: GERD, Hemorrhoids, Pancreatitis Musculoskeletal: History of: Back/Neck Problems (Neck) Hematology: No history of: Blood Transfusion Reaction Reproductive: No history of: Abnormal Pap Smear, Breast Cancer Other: No history of: Anesthesia Reactions - Surgical History Cardiac Surgeries: Patient Denies: Cardiac Catheterization Thoracic Surgeries: Patient denies;: Organ Transplant, Lobectomy Neurologic Surgeries: Patient denies: Neurologic Surgery Abdominal Surgeries: Surgical HX of: Abdominal Surgery, Appendectomy, Colonoscopy, EGD Patient denies: Cholecystectomy, Gastric Bypass Surgery, Hernia Repair Reproductive Surgeries: Surgical HX of;: Gynecologic Surgery, Hysterectomy Patient denies;: Breast Surgery, Section Orthopedic Surgeries: Surgical HX of;: Orthopedic Surgery (LEFT shoulder rotator cuff repair) - Family History Family History: Reports;: Family Cancer, Family Hypertension Denies;: Family Anesthesia Reaction, Family Diabetes, Family Heart Disease, Family Psychiatric Problems, Family Stroke - Social History Smoking Status: Current every day smoker Frequency of Alcohol Use: None Type of Drug Use: None Lives With:: Alone Functional capacity: independent ambulation - Constitutional Constitutional: Present: fatigue, night sweats, weakness. Absent: chills, fever (s) - EENT Eyes: Absent: blurry vision, loss of vision Ears: Absent: decreased hearing, ear discharge Nose, mouth and throat: Absent: hoarseness, sore throat - Cardiovascular Cardiovascular: Present: dyspnea on exertion. Absent: chest pain at rest, edema - Respiratory Respiratory: Present: cough, dyspnea on exertion. Absent: wheezing - Gastrointestinal Gastrointestinal: Present: abdominal pain, cramping, nausea, vomiting. Absent: change in bowel habits - Genitourinary Genitourinary: Absent: difficulty urinating, hematuria - Musculoskeletal Musculoskeletal: Absent: limited range of motion, muscle weakness - Neurological Neurological: Absent: confusion, numbness, tremor(s) - Psychiatric Psychiatric: Present: anxiety, depression. Absent: confusion Exam - Constitutional Vitals: Period Temp Pulse Resp BP Sys/Rodriguez Pulse Ox Last 24 Hr 97.1 F 90 20 123/92 96 General appearance: mild distress - Head Head exam: Present: normal inspection, normocephalic - Eye Eye exam: Present: EOMI. Absent: periorbital swelling Pupils: Present: DORIS. Absent: dilated - Respiratory Respiratory exam: Present: clear to auscultation bilaterally. Absent: wheezes - Cardiovascular Cardiovascular exam: Present: regular rate and rhythm - GI/Abdominal GI/Abdominal exam: Present: normal bowel sounds, guarding, tenderness, soft. Absent: firm - Extremities Exam Extremities exam: Present: normal inspection, normal capillary refill, full ROM. Absent: edema - Neurological Exam Neurological exam: Present: alert, oriented X3, normal gait - Psychiatric Psychiatric exam: Present: normal affect, normal mood - Skin Skin exam: Present: normal color, warm, dry Results - Labs CBC & BMP: 10/07/16 15:46 10/07/16 15:46 Lab Results: I have reviewed the past 24 hour labs <Damian Michael - Last Filed: 10/07/16 18:28> History of Present Illness History of present illness: Ms. Crum is a 55 year old female Exam - Constitutional Vitals: Period Temp Pulse Resp BP Sys/Rodriguez Pulse Ox Last 24 Hr 97.1 F-98.0 F 83-90 20-20 122-123/78-92 93-96 Results - Labs CBC & BMP: 10/07/16 15:46 10/07/16 15:46
--- NOTE | 2016-10-07 17:24 | Emergency Department Note ---
Brigida eRmy Brittany, am scribing for, and in the presence of, Corinna Petersen MD 15:53. Nicola Remy Kathryn, MD, personally performed the services described in this documentation, ascribed by Kitty Allred in my presence, and it is both accurate and complete [id number] . Arrival - Arrival Chief Complaint: Abdominal / Flank Pain Stated Complaint: pain in left and right abdomen and back ED Nursing Triage Note: Abd pain - d/c from hospital Wed for pancreatitis - pt states that her pain has never went away but states that the pain got worse last night - pt has been taking norco for pain at home without relief Mode of Arrival: Ambulatory Limitations: No Limitations Source: Patient - History of Present Illness HPI Narrative: This is a 55 y/o white female, who presents to the ED with c/o abd pain which stated 1 week ago. She states she was seen here last week and DX with pancreatitis. She reports this is the 4th episode of pancreatitis she has had.She states the abd pain has not gotten better. She reports the abd pain is more to the LUQ and epigastric area. Pt reports nausea, night sweats, and vomiting. She reports she vomited yesterday. She has tried [place] 5 which have not helped and Zofran for the nausea and this have not helped either. Pt denies any diarrhea, she states her last BM was yesterday which was normal. She denies any CP, but her reports she has been more SOB than normal. Pt has no other complaints/pain in the ED at this time. Pt has a PMHx of pancreatitis, anxiety, depression, fibromyalgia, dyslipidemia, HTN, obstructive sleep apnea, pneumonia, asthma, bronchitis GERD, and back/neck problems. Pt has had an appendectomy, orthopedic surgery, EGD, colonoscopy,hysterectomy, and gynecological surgery. Pt has a family medical Hx of cancer and HTN. Pt is a current every day smoker. Onset (ago): week(s) (Started 1 week ago) Consistency: constant Severity: moderate, similar to previous episodes Date of Last Menstrual Period: hyster Allergies/Adverse Reactions: Allergies Allergy/AdvReac Type Severity Reaction Status Date / Time Erythromycin Base Allergy Unknown Unknown/Unable Verified 09/26/16 16:02 to obtain Penicillins Allergy Unknown Unknown/Unable Verified 09/26/16 16:02 to obtain Sulfa (Sulfonamide Allergy Unknown Unknown/Unable Verified 09/26/16 16:02 Antibiotics) to obtain Home Medications: Home Medications Medication Instructions Recorded Confirmed Type Atorvastatin [Lipitor] 10 mg PO QPM 05/14/16 10/07/16 History Duloxetine HCl [Cymbalta] 60 mg PO BID 05/14/16 10/07/16 History Loratadine [Claritin] 10 mg PO DAILY PRN 05/14/16 10/07/16 History Mirtazapine 30 mg PO BEDTIME 05/14/16 10/07/16 History QUEtiapine [SEROquel] 100 mg PO BEDTIME 05/14/16 10/07/16 History Tizanidine HCl 2 mg PO TID PRN 05/14/16 10/07/16 History Albuterol Sulfate [Proair HFA] 2 puffs PO BID 09/26/16 10/07/16 History Beclomethasone 40 Mcg Inhaler 2 puffs PO BID 09/26/16 10/07/16 History [Qvar 40 Mcg] Benzonatate [Tessalon] 200 mg PO TID PRN 09/26/16 10/07/16 History Doxepin [SINEquan] 100 mg PO BEDTIME 09/26/16 10/07/16 History Fluticasone 50 Mcg Nasal [place] 1 spray BOTH NARES DAILY PRN 09/26/16 10/07/16 History [Flonase Nasal [place]] Propranolol Tab [Inderal Tab] 20 mg PO TID 09/26/16 10/07/16 History hydroCHLOROthiazide 12.5 mg PO QAM 09/26/16 10/07/16 History [Hydrochlorothiazide] HYDROcodone/ACETAMIN 5-325 [[place] 1 tablet PO Q4H PRN #30 tablet 10/03/16 Rx 5-325] Nicotine 21 mg/24 Hr Patch 1 patch TRANSDERM DAILY PRN #0 10/03/16 10/07/16 Rx [Nicoderm CQ 21 mg/24 hr Patch] patch amLODIPine [Norvasc] 10 mg PO QPM tablet 10/03/16 10/07/16 Rx Pantoprazole Tab [Protonix Tab] 40 mg PO QAM 10/07/16 10/07/16 History Review of System - Review of System 12 point system: reviewed and no additional remarkable complaints except as stated - Review of System Constitutional: Present: night sweats (Last night) Cardiovascular: Absent: chest pain Gastrointestinal: Present: abdominal pain, nausea, vomiting. Absent: diarrhea Medical,Surgical,& Family Hx - Medical History Cardio: History of: Hypertension Psychological: History of: Anxiety Disorders, Depression Neurology: No history of: Seizures Endocrine: History of: Dyslipidemia Rheumatology: History of;: Fibromyalgia Respiratory: History of: Asthma, Bronchitis, Obstructive Sleep Apnea (Does not wear C-pap), Pneumonia Gastrointestinal: History of: GERD, Hemorrhoids, Pancreatitis Musculoskeletal: History of: Back/Neck Problems (Neck) Hematology: No history of: Blood Transfusion Reaction Reproductive: No history of: Abnormal Pap Smear, Breast Cancer Other: No history of: Anesthesia Reactions - Surgical History Cardiac Surgeries: Patient Denies: Cardiac Catheterization Thoracic Surgeries: Patient denies;: Organ Transplant, Lobectomy Neurologic Surgeries: Patient denies: Neurologic Surgery Abdominal Surgeries: Surgical HX of: Abdominal Surgery, Appendectomy, Colonoscopy, EGD Patient denies: Cholecystectomy, Gastric Bypass Surgery, Hernia Repair Reproductive Surgeries: Surgical HX of;: Gynecologic Surgery, Hysterectomy Patient denies;: Breast Surgery, Section Orthopedic Surgeries: Surgical HX of;: Orthopedic Surgery (LEFT shoulder rotator cuff repair) - Family History Family History: Reports;: Family Cancer, Family Hypertension Denies;: Family Anesthesia Reaction, Family Diabetes, Family Heart Disease, Family Psychiatric Problems, Family Stroke - Social History Smoking Status: Current every day smoker Frequency of Alcohol Use: None Type of Drug Use: None Exam Vital Signs: Vital Signs Temperature 97.1 F L 10/07/16 15:04 Pulse Rate 90 10/07/16 15:04 Respiratory Rate 20 10/07/16 15:04 Blood Pressure 123/92 10/07/16 15:04 O2 Sat by Pulse Oximetry 96 10/07/16 15:04 - General General appearance: alert, in no apparent distress - Head Head exam: Present: atraumatic, normocephalic, normal inspection - Eye Eye exam: Present: normal appearance, PERRL, EOMI. Absent: nystagmus, miosis, mydriasis - ENT ENT exam: Present: normal exam, normal oropharynx, mucous membranes moist - Neck Neck exam: Present: normal inspection, full ROM, trachea midline. Absent: tenderness, meningismus, lymphadenopathy, thyromegaly - Chest Chest inspection: Present: normal inspection, symmetric chest wall rise. Absent : tenderness, rash, abscess - Respiratory Respiratory exam: Present: normal lung sounds bilaterally. Absent: rales, respiratory distress, rhonchi, stridor, wheezes - Cardiovascular Cardiovascular exam: Present: regular rate, normal rhythm, normal heart sounds. Absent: murmur, rubs, gallop, clicks - Abdominal Exam Abdominal exam: Present: soft, tenderness (LUQ TTP, epigastric tenderness), guarding, normal bowel sounds. Absent: distention, rebound, rigidity - Rectal Exam Rectal exam: Present: deferred - Extremities Exam Extremities exam: Present: normal inspection, full ROM, normal capillary refill. Absent: tenderness, pedal edema, joint swelling, calf tenderness - Back Exam Back exam: Present: normal inspection, full ROM. Absent: tenderness, muscle spasm, rashes - Neurological Exam Neurological exam: Present: alert, oriented X3, CN II-XII intact. Absent: motor sensory deficit - Psychiatric Psychiatric exam: Present: normal affect, normal mood. Absent: depressed, agitated, anxious, flat affect, manic - Skin Skin exam: Present: warm, dry, intact, normal color. Absent: rash, cyanosis, diaphoresis, erythema, pallor, mottled Course Course Narrative: Reviewed discharge summary. Patient admitted 09/26-10/03 for alcoholic pancreatitis. Received full dose of cipro and flagyl while in hospital. Initial lipase 1000s down to 400s at time of discharge. Dr. Estevez was consulted/ following patient. Discussed with hospitalist for admission. Results - Labs CBC & BMP: 10/07/16 15:46 10/07/16 15:46 Lab Results: I have reviewed the patients labs Labs: Laboratory Tests 10/07/16 10/07/16 10/07/16 15:46 15:46 15:46 WBC 6.7 RBC 4.61 Hgb 14.9 Hct 44.4 MCV 96.3 MCH 32 MCHC 33.6 RDW 15.0 Plt Count 436 H MPV 10.7 Neut % (Auto) 63.8 Lymph % (Auto) 21.2 L [place] % (Auto) 10.3 Eos % (Auto) 3.4 Baso % (Auto) 0.9 H Neut # (Auto) 4.3 Lymph # (Auto) 1.4 [place] # (Auto) 0.7 Eos # (Auto) 0.2 Baso # (Auto) 0.1 Immature Gran % 0.4 Nucleated RBC % 0.0 Immature Gran # 0.03 Nucleated RBCs # 0.00 Sodium 138 Potassium 3.2 L Chloride 99 Carbon Dioxide 29 Anion Gap 13.2 BUN 11 Creatinine 0.80 GFR Calculation 88 BUN/Creatinine Ratio 13.00 Glucose 145 H Calculated Osmolality 276.7 Calcium 9.0 Total Bilirubin 0.40 AST 26 ALT 21 Alkaline Phosphatase 102 Total Protein 7.7 Albumin 3.2 L Globulin 4.5 H Albumin/Globulin Ratio 0.7 L Amylase 251 H Lipase 712.0 H Urine Color [place] Urine Appearance Clear Urine pH 7.0 Ur Specific [place] 1.031 Urine Protein 30 Urine Glucose (UA) Negative Urine Ketones 5 Urine Blood Negative Urine Nitrate Negative Urine Bilirubin Small H Urine Urobilinogen 2.0 H Urine Leukocytes Trace Urine RBC 1 Urine WBC 2 Ur Squamous Epith Cells Occasional Urine Bacteria Occasional Hyaline Casts 4 Urine Mucus Occasional Ur Culture Indicated? Not indicated Serum Alcohol 10/07/16 15:46 WBC RBC Hgb Hct MCV MCH MCHC RDW Plt Count MPV Neut % (Auto) Lymph % (Auto) [place] % (Auto) Eos % (Auto) Baso % (Auto) Neut # (Auto) Lymph # (Auto) [place] # (Auto) Eos # (Auto) Baso # (Auto) Immature Gran % Nucleated RBC % Immature Gran # Nucleated RBCs # Sodium Potassium Chloride Carbon Dioxide Anion Gap BUN Creatinine GFR Calculation BUN/Creatinine Ratio Glucose Calculated Osmolality Calcium Total Bilirubin AST ALT Alkaline Phosphatase Total Protein Albumin Globulin Albumin/Globulin Ratio Amylase Lipase Urine Color Urine Appearance Urine pH Ur Specific [place] Urine Protein Urine Glucose (UA) Urine Ketones Urine Blood Urine Nitrate Urine Bilirubin Urine Urobilinogen Urine Leukocytes Urine RBC Urine WBC Ur Squamous Epith Cells Urine Bacteria Hyaline Casts Urine Mucus Ur Culture Indicated? Serum Alcohol < 15 L Disposition Clinical Impression: Acute pancreatitis Case discussed with: patient, patient's family Disposition: Still a Patient Condition: Stable Time of Disposition: 17:24
[2016-10-07] MEDS ORDERED: POTASSIUM CHLORIDE 20 MEQ TABLET PO PRN (17:59)
[2016-10-07] MEDS ORDERED: DOCUSATE SODIUM 100 MG CAPSULE PO PRN (17:59)
[2016-10-07] MEDS ORDERED: LORazepam 2 MG/1 ML VIAL IV PRN (17:59)
[2016-10-07] MEDS ORDERED: ACETAMINOPHEN 325 MG TABLET PO PRN (17:59)
[2016-10-07] MEDS: SODIUM CHLORIDE 0.9% 1,000 ML IV SCH (18:27)
[2016-10-07] MEDS: HYDROmorphone 2 MG/1 ML VIAL IV PRN (19:59)
[2016-10-07] MEDS ORDERED: diphenhydrAMINE CAP 25 MG CAPSULE PO PRN (20:11)
[2016-10-07] MEDS: ONDANSETRON 4 MG/2 ML VIAL IV PRN (21:06)
[2016-10-07] MEDS: PROPRANOLOL 20 MG TABLET PO SCH (21:06)
--- NOTE | 2016-10-07 21:45 | CT Report ---
CT abdomen pelvis w con Indication: Follow-up pancreatic pseudocyst Comparison: 09/26/2016. Technique: CT of the abdomen and pelvis was performed following administration of intravenous contrast. Coronal and sagittal reformatted images were additionally created and submitted for review. The total DLP is 1142 mGy*cm. Dose reduction: This CT exam was performed using one or more of the following dose reduction techniques: Automated exposure control, automated adjustment of the mA and/or KV according to patient size, or use of iterative reconstruction technique. Findings: Similar posterior basilar dependent atelectatic changes are noted bilaterally. Lung bases are otherwise clear. There is no pleural or pericardial effusion. ABDOMEN: Liver/Gallbladder: Diffuse hypodensities noted of the liver parenchyma. No abnormal enhancing lesions are identified. There is no biliary ductal dilatation. No gallstones are identified. Portal vein is patent. Spleen: No acute findings. Pancreas: There is focal peripancreatic fluid noted with a small collection near the pancreatic body measuring up to 3.5 x 1.8 cm in maximum dimension of the axial plane. There is also mild peripancreatic stranding, most consistent with active or resolving pancreatitis. The main pancreatic duct does not appear dilated. No definite focal mass lesion is identified within the pancreas. Additionally, adjacent to the stomach and left lobe of the liver, there is a second low density collection measuring up to 5 x 2 cm in the axial plane and up to 2.7 cm craniocaudal. A third collection measuring up to 3.5 cm in maximum dimension in the anterior mesenteric fat below the stomach appears to be new from prior. There is a moderate amount of gastric mucosal edema suggested and perigastric inflammation. Overall, this collection appears similar in size when compared to the prior study although comparison is limited given lack of contrast on the prior study. Adrenals: Within normal limits in appearance. Kidneys: Both kidneys enhance symmetrically. There is no evidence of obstructive uropathy. Contrast excretion is noted from both kidneys on delayed images. Bowel/mesentery: Small bowel is nondilated. There is no free air within the abdomen. Moderate stool is noted throughout the colon which is also nondilated. Appendix is not definitely identified. Prominent areas of mesenteric stranding/edema are noted within the midline upper abdomen and left upper quadrant. There is also minimal fluid layering along the left paracolic gutter. Retroperitoneum: No evidence of aortic aneurysm or significant retroperitoneal adenopathy. 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 PELVIS: Minimally free fluid is noted within the dependent pelvis. There has been a prior hysterectomy. There is no adenopathy. The bladder is mildly dilated but otherwise unremarkable in appearance. BONES: No acute or suspicious osseous abnormalities are identified. IMPRESSION: 1. Suggestion of slight worsening of inflammatory changes within the mesentery and the left upper abdomen primarily about the stomach and pancreas. At least 3 separate hypodense collections are noted within the left upper quadrant adjacent to the stomach/liver/pancreas as detailed above. These may represent pseudocysts or loculated free fluid. Developing abscess cannot be entirely excluded. Continued close clinical and imaging follow-up is recommended. 2. Moderate gastric mucosal thickening and perigastric inflammatory changes may represent a degree of underlying infectious/inflammatory gastritis or reactive changes. Consider EGD for further evaluation if clinically indicated. 3. Findings compatible with fatty infiltration of the hepatic parenchyma. 10/07/2016 9:28 PM PROCEDURE INTERPRETED AT [facility] DEPARTMENT OF RADIOLOGY Final Report Signed by: Al Rice
[2016-10-08] MEDS: HYDROmorphone 2 MG/1 ML VIAL IV PRN ×6 (01:02→23:53)
[2016-10-08] MEDS: SODIUM CHLORIDE 0.9% 1,000 ML IV SCH ×3 (03:56→19:08)
[2016-10-08 04:56] LABS: Basophils # 0.1 10*3/uL (0.0-0.2); Basophils % 1.2 % (0.0-0.8); Eosinophils # 0.3 10*3/uL (0.0-0.87); Eosinophils % 5.9 % (0.00-10.9); Hematocrit 39.7 VOL% (35.7-47.0); Hemoglobin 12.8 GM/DL (12.0-16.0); Immature Granulocytes % 0.2 %; Immature Granulocytes Absolute 0.01 #; Lymphocytes # 1.3 10*3/uL (1.4-4.0); Mean Corpuscular HGB Conc 32.2 GM/DL (32-36); Mean Corpuscular Hemoglobin 32 PG (27-34); Mean Corpuscular Volume 99.7 FL (87-102); Mean Platelet Volume 10.8 FL (9.6-12.0); Monocytes # 0.6 10*3/uL (0.11-0.8); Monocytes % 13.3 % (1.7-12.7); Neutrophils # 2.1 10*3/uL (1.4-7.4); Neutrophils % 49.4 % (38.7-73.9); Platelet Count 341 T/CUMM (130-400); Red Blood Count 3.98 MC/CUMM (3.8-5.5); Red Cell Distribution Width 14.9 % (9.3-17.3); White Blood Count 4.3 T/CUMM (4-12)
[2016-10-08 05:27] LABS: Calcium 8.1 MG/DL (8.5-10.1); Osmolality,Calculated 278.3 MOS/KG (273-304); Potassium 3.7 MMOL/L (3.5-5.1)
[2016-10-08] MEDS: NICOTINE 21 MG/24 HR PATCH TRANSDERM PRN (08:29)
[2016-10-08] MEDS: PROPRANOLOL 20 MG TABLET PO SCH ×3 (08:30→21:36)
[2016-10-08] MEDS: PANTOPRAZOLE 40 MG TABLET PO SCH (08:30)
[2016-10-08] MEDS: MULTIVITAMIN (CENTRUM) TABLET PO SCH (08:30)
[2016-10-08] MEDS: THIAMINE 100 MG TABLET PO SCH (08:30)
[2016-10-08] MEDS: FOLIC ACID 1 MG TABLET PO SCH (08:30)
[2016-10-08] MEDS: ATORVASTATIN 10 MG TABLET PO SCH ×2 (09:01→18:08)
--- NOTE | 2016-10-08 13:55 | Hospitalist Progress Note ---
Assessment and Plan (1) Acute pancreatitis Status: Acute Assessment and plan: She has returned to the hospital within a week of discharge with recurrent pain from pancreatitis. Her pain and nausea are adequately managed with meds. Dr Estevez to see. Continue IVF. This episode consistent with acute on chronic pancreatitis. Concern for pseudocyst v loculated free fluid, and the gastric mucosa also appears thickened. Lipase near normal today. Perhaps she needs pancreatic enzymes- 2)insomnia, depression- I have reconciled her home meds. 3)h/o alcohol abuse/dependence- no alcohol since last March, no sign of DTs or withdrawal symptoms. Current Visit: No Hospitalist: Subjective Interval history: Ms Crum's pain is controlled with dilaudid this morning. Earlier she went 6 hours without pain meds and was in significant distres. She needs her usual meds at night for sleep. The CT showed possibly increased area of pseudocyst, Dr Estevez has been consulted. She is not vomiting. She was able to eat a little yesterday but she has had increase in her symptoms each day since discharge last week including pain and nausea. Exam - Constitutional Vitals: Period Temp Pulse Resp BP Sys/Rodriguez Pulse Ox Last 24 Hr 97.0 F-98.0 F 62-92 18-20 103-130/65-92 90-95 General appearance: mild distress, over weight - Head Head exam: Present: normocephalic, atraumatic - Eye Eye exam: Present: EOMI. Absent: scleral icterus - ENT ENT exam: Present: normal oropharynx - Respiratory Respiratory exam: Present: clear to auscultation bilaterally - Cardiovascular Cardiovascular exam: Present: regular rate and rhythm - GI/Abdominal GI/Abdominal exam: Present: normal bowel sounds, tenderness, soft - Extremities Exam Extremities exam: Absent: edema - Neurological Exam Neurological exam: Present: alert, oriented X3 Results - Labs CBC & BMP: 10/08/16 04:31 10/08/16 04:31 Lab Results: I have reviewed the past 24 hour labs Specialty Discharge - Follow Up or Referrals
[2016-10-08] MEDS ORDERED: FLUTICASONE 50 MCG NASAL SPRAY 16 GM BOTTLE BOTH NARES PRN (14:00)
--- NOTE | 2016-10-08 14:39 | Gastrointestinal Consult Note ---
Assessment and Plan (1) Acute pancreatitis Status: Acute Assessment and plan: 10/08-recurrence of severe abdominal pain with nausea and vomiting with recent diagnosis of pancreatitis. Lipase level 712 on admission, now trending down. Afebrile, no leukocytosis. Pain more controlled at present. CT findings noted with 3.5 cm by 1.8 cm density at the body of the pancreas. Continue n.p.o. status, IV fluids and analgesics as needed. Plan an addendum to followed by Dr. Estevez Current Visit: No History of Present Illness Chief complaint: Pancreatitis History of present illness: Ms. Crum is a 55 year old female who presented to the ER for complaints of abdominal pain. Pt was recently discharged from our facility on 10/03 after inpatient stay for pancreatitis. Patient states after discharge she was doing fairly well however she still continues to take her [place] for pain on a regular basis. Patient states that she has eaten very little since she returned home and was doing fairly well until Saturday. She states that Saturday she had an increase in her upper abdominal pain with onset of nausea and vomiting. She states that this had been controlled since discharge however she ate a half of a pot pie on Saturday and not long after that she became sick again. She also reports that she has been having night sweats but denies any fever or chills. She has been having normal bowel movements as well with her last bowel movement being 2 days ago. She has a history of heavy alcohol use over the past couple of years and has completed inpatient rehab at one time. She adamantly states that she quit heavy drinking in March of last year however she did relapse over the last several weeks and began drinking again. She initially did not share this with her , he was a robotics systems engineer at their [employer], but states today that she was open and honest with him regarding her drinking habits this past week. She smokes 1 pack of cigarettes a day. She denies any other illicit drug use. States that she did not drink upon discharge. Lipase level is 402, down from 712 on admission. Serum alcohol is negative. No leukocytosis noted. Patient is afebrile. CT of abdomen on admission shows slightly worsening inflammatory changes in the mesentery of the left upper abdomen with 3 separate hypodense collections adjacent to the stomach/liver/ pancreas, possibly representing pseudocyst or loculated free fluid. Home Medications Medication Instructions Recorded Confirmed Type Atorvastatin [Lipitor] 10 mg PO QPM 05/14/16 10/07/16 History Duloxetine HCl [Cymbalta] 60 mg PO BID 05/14/16 10/07/16 History Loratadine [Claritin] 10 mg PO DAILY PRN 05/14/16 10/07/16 History Mirtazapine 30 mg PO BEDTIME 05/14/16 10/07/16 History QUEtiapine [SEROquel] 100 mg PO BEDTIME 05/14/16 10/07/16 History Tizanidine HCl 2 mg PO TID PRN 05/14/16 10/07/16 History Albuterol Sulfate [Proair HFA] 2 puffs PO BID 09/26/16 10/07/16 History Beclomethasone 40 Mcg Inhaler 2 puffs PO BID 09/26/16 10/07/16 History [Qvar 40 Mcg] Benzonatate [Tessalon] 200 mg PO TID PRN 09/26/16 10/07/16 History Doxepin [SINEquan] 100 mg PO BEDTIME 09/26/16 10/07/16 History Fluticasone 50 Mcg Nasal [place] 1 spray BOTH NARES DAILY PRN 09/26/16 10/07/16 History [Flonase Nasal [place]] Propranolol Tab [Inderal Tab] 20 mg PO TID 09/26/16 10/07/16 History hydroCHLOROthiazide 12.5 mg PO QAM 09/26/16 10/07/16 History [Hydrochlorothiazide] HYDROcodone/ACETAMIN 5-325 [[place] 1 tablet PO Q4H PRN #30 tablet 10/03/16 Rx 5-325] Nicotine 21 mg/24 Hr Patch 1 patch TRANSDERM DAILY PRN #0 10/03/16 10/07/16 Rx [Nicoderm CQ 21 mg/24 hr Patch] patch amLODIPine [Norvasc] 10 mg PO QPM tablet 10/03/16 10/07/16 Rx Pantoprazole Tab [Protonix Tab] 40 mg PO QAM 10/07/16 10/07/16 History Allergies Allergy/AdvReac Type Severity Reaction Status Date / Time Penicillins Allergy Severe HIVES Verified 10/07/16 18:09 Sulfa (Sulfonamide Allergy Severe HIVES Verified 10/07/16 18:09 Antibiotics) Erythromycin Base Allergy Intermediate HIVES Verified 10/07/16 18:09 Medical,Surgical,& Family Hx - Medical History Cardio: History of: Hypertension Psychological: History of: Anxiety Disorders, Depression Neurology: No history of: Seizures Endocrine: History of: Dyslipidemia Rheumatology: History of;: Fibromyalgia Respiratory: History of: Asthma, Bronchitis, Obstructive Sleep Apnea (Does not wear C-pap), Pneumonia Gastrointestinal: History of: GERD, Hemorrhoids, Pancreatitis Musculoskeletal: History of: Back/Neck Problems (Neck) Hematology: No history of: Blood Transfusion Reaction Reproductive: No history of: Abnormal Pap Smear, Breast Cancer Other: No history of: Anesthesia Reactions - Surgical History Cardiac Surgeries: Patient Denies: Cardiac Catheterization Thoracic Surgeries: Patient denies;: Organ Transplant, Lobectomy Neurologic Surgeries: Patient denies: Neurologic Surgery Abdominal Surgeries: Surgical HX of: Abdominal Surgery, Appendectomy, Colonoscopy, EGD Patient denies: Cholecystectomy, Gastric Bypass Surgery, Hernia Repair Reproductive Surgeries: Surgical HX of;: Gynecologic Surgery, Hysterectomy Patient denies;: Breast Surgery, Section Orthopedic Surgeries: Surgical HX of;: Orthopedic Surgery (LEFT shoulder rotator cuff repair) - Family History Family History: Reports;: Family Cancer, Family Hypertension Denies;: Family Anesthesia Reaction, Family Diabetes, Family Heart Disease, Family Psychiatric Problems, Family Stroke - Social History Smoking Status: Current every day smoker Frequency of Alcohol Use: None Type of Drug Use: None 12 point system: reviewed and no additional remarkable complaints except as stated - Constitutional Constitutional: Present: as per HPI, chills - EENT Eyes: Present: as per HPI Ears: Present: as per HPI Nose, mouth and throat: Present: as per HPI - Cardiovascular Cardiovascular: Present: as per HPI - Respiratory Respiratory: Present: as per HPI - Gastrointestinal Gastrointestinal: Present: as per HPI, abdominal pain, nausea, vomiting - Genitourinary Genitourinary: Present: as per HPI - Musculoskeletal Musculoskeletal: Present: as per HPI - Neurological Neurological: Present: as per HPI - Psychiatric Psychiatric: Present: as per HPI - Endocrine Endocrine: Present: as per HPI - Hematologic/Lymphatic Hematologic/Lymphatic: Present: as per HPI Exam - Constitutional Vitals: Period Temp Pulse Resp BP Sys/Rodriguez Pulse Ox Last 24 Hr 97.0 F-98.0 F 62-92 18-20 103-130/65-92 90-95 General appearance: normal weight, no acute distress - Head Head exam: Present: normal inspection, normocephalic - Eye Eye exam: Present: other (Lids and conjunctivae unremarkable). Absent: scleral icterus - ENT ENT exam: Present: normal exam, normal oropharynx - Neck Neck exam: Present: normal inspection - Respiratory Respiratory exam: Present: clear to auscultation bilaterally. Absent: rales, rhonchi, wheezes - Cardiovascular Cardiovascular exam: Present: regular rate and rhythm. Absent: diastolic murmur , JVD, systolic murmur - GI/Abdominal GI/Abdominal exam: Present: normal bowel sounds, soft. Absent: ascites, distended, mass, organomegaly, tenderness - Extremities Exam Extremities exam: Present: normal inspection, full ROM - Back Exam Back exam: Present: normal inspection - Neurological Exam Neurological exam: Present: alert, oriented X3 - Psychiatric Psychiatric exam: Present: normal affect, normal mood - Skin Skin exam: Present: normal color, warm, dry Results - Labs CBC & BMP: 10/08/16 04:31 10/08/16 04:31 Lab Results: I have reviewed the past 24 hour labs - Diagnostic Findings Procedure: CT Abdomen and Pelvis: report reviewed by me Specialty Discharge - Follow Up or Referrals
[2016-10-08] MEDS: amLODIPine 10 MG TABLET PO SCH (19:06)
[2016-10-08] MEDS: ALBUTEROL 2.5 MG/3 ML NEB RESP TX SCH (20:45)
[2016-10-08] MEDS: BECLOMETHASONE 40 MCG/PUFF INHALER 8.7 GM INH SCH (21:34)
[2016-10-08] MEDS: MIRTAZAPINE 15 MG TABLET PO SCH (21:36)
[2016-10-08] MEDS: DOXEPIN 100 MG CAPSULE PO SCH (21:36)
[2016-10-08] MEDS: QUEtiapine 100 MG TABLET PO SCH (21:36)
[2016-10-08] MEDS: DULoxetine 30 MG CAPSULE PO SCH (21:37)
[2016-10-09 04:26] LABS: Basophils % 0.6 % (0.0-0.8); Eosinophils # 0.2 10*3/uL (0.0-0.87); Eosinophils % 3.4 % (0.00-10.9); Hematocrit 34.3 VOL% (35.7-47.0); Hemoglobin 11.2 GM/DL (12.0-16.0); Immature Granulocytes % 0.4 %; Immature Granulocytes Absolute 0.02 #; Lymphocytes # 1.4 10*3/uL (1.4-4.0); Lymphocytes % 29.6 % (21.3-54.2); Mean Corpuscular HGB Conc 32.7 GM/DL (32-36); Mean Corpuscular Hemoglobin 32 PG (27-34); Mean Corpuscular Volume 97.7 FL (87-102); Mean Platelet Volume 10.9 FL (9.6-12.0); Monocytes # 0.5 10*3/uL (0.11-0.8); Monocytes % 9.7 % (1.7-12.7); Neutrophils # 2.6 10*3/uL (1.4-7.4); Neutrophils % 56.3 % (38.7-73.9); Platelet Count 313 T/CUMM (130-400); Red Blood Count 3.51 MC/CUMM (3.8-5.5); White Blood Count 4.7 T/CUMM (4-12)
[2016-10-09] MEDS: HYDROmorphone 2 MG/1 ML VIAL IV PRN ×7 (04:38→23:59)
[2016-10-09 04:44] LABS: Calcium 8.1 MG/DL (8.5-10.1); Potassium 3.5 MMOL/L (3.5-5.1)
[2016-10-09] MEDS: SODIUM CHLORIDE 0.9% 1,000 ML IV SCH ×2 (05:33→14:32)
[2016-10-09] MEDS: ALBUTEROL 2.5 MG/3 ML NEB RESP TX SCH ×2 (07:13→21:17)
[2016-10-09] MEDS: DULoxetine 30 MG CAPSULE PO SCH ×2 (08:12→20:07)
[2016-10-09] MEDS: THIAMINE 100 MG TABLET PO SCH (08:12)
[2016-10-09] MEDS: MULTIVITAMIN (CENTRUM) TABLET PO SCH (08:13)
[2016-10-09] MEDS: PANTOPRAZOLE 40 MG TABLET PO SCH (08:13)
[2016-10-09] MEDS: FOLIC ACID 1 MG TABLET PO SCH (08:13)
[2016-10-09] MEDS: PROPRANOLOL 20 MG TABLET PO SCH ×3 (08:13→20:06)
[2016-10-09] MEDS: ONDANSETRON 4 MG/2 ML VIAL IV PRN ×2 (08:14→14:33)
[2016-10-09] MEDS: BECLOMETHASONE 40 MCG/PUFF INHALER 8.7 GM INH SCH ×2 (09:12→20:09)
--- NOTE | 2016-10-09 10:10 | Gastrointestinal Progress Note ---
Assessment and Plan (1) Acute pancreatitis Status: Acute Assessment and plan: 10/09-pain controlled at present time. No nausea vomiting. Lipase 561. Afebrile , WBCs 4000. No changes at present time. Plan an addendum to follow Dr. Estevez 10/08-recurrence of severe abdominal pain with nausea and vomiting with recent diagnosis of pancreatitis. Lipase level 712 on admission, now trending down. Afebrile, no leukocytosis. Pain more controlled at present. CT findings noted with 3.5 cm by 1.8 cm density at the body of the pancreas. Continue n.p.o. status, IV fluids and analgesics as needed. Plan an addendum to followed by Dr. Estevez Current Visit: No Gastroenterology - PN: Subj Interval history: CC: Pancreatitis Patient is seen awake and alert. States she had a restful night. States that her pain is better controlled however she is requiring analgesics every 3-4 hours. Denies any nausea vomiting. Afebrile. No leukocytosis at present. Lipase 561. Abdomen soft, mild left upper quadrant tenderness slightly improved. RS: Denies shortness of breath or chest pain Exam (Progress Note) - Constitutional Vitals: Period Temp Pulse Resp BP Sys/Rodriguez Pulse Ox Last 24 Hr 96.6 F-98.4 F 62-80 18-20 102-150/59-81 81-97 General appearance: normal weight, no acute distress - Head Head exam: Present: normal inspection, normocephalic - Eye Eye exam: Present: other (Lids and conjunctivae are unremarkable). Absent: scleral icterus - ENT ENT exam: Present: normal exam, normal oropharynx - Neck Neck exam: Present: normal inspection - Respiratory Respiratory exam: Present: clear to auscultation bilaterally. Absent: rales, rhonchi, wheezes - Cardiovascular Cardiovascular exam: Present: regular rate and rhythm. Absent: diastolic murmur , JVD, systolic murmur - GI/Abdominal GI/Abdominal exam: Present: normal bowel sounds, soft. Absent: ascites, distended, mass, organomegaly, tenderness - Extremities Exam Extremities exam: Present: normal inspection, full ROM - Back Exam Back exam: Present: normal inspection - Neurological Exam Neurological exam: Present: alert, oriented X3 - Psychiatric Psychiatric exam: Present: normal affect, normal mood - Skin Skin exam: Present: normal color, warm, dry Results - Labs CBC & BMP: 10/09/16 03:54 10/09/16 03:54 Lab Results: I have reviewed the past 24 hour labs Specialty Discharge - Follow Up or Referrals
--- NOTE | 2016-10-09 13:20 | Hospitalist Progress Note ---
Assessment and Plan (1) Acute pancreatitis Status: Acute Assessment and plan: She has returned to the hospital within a week of discharge with recurrent pain from alcoholic pancreatitis. Her pain and nausea are adequately managed with meds. Dr Estevez has seen her and recommends watchful waiting. Continue IVF. This episode consistent with acute on chronic pancreatitis with the start of pseudocyst formation. 2)insomnia, depression- on her home meds for insomnia and she slept better last night 3)h/o alcohol abuse/dependence- no alcohol since last March, no sign of DTs or withdrawal symptoms. 4)hypoxia- improves with 2L NC supplement and she is asymptomatic. She might benefit form outpatient sleep study when this episode resolved. Lungs clear on exam, and no LE edema. check CXR tomorrow, continue IVF at 75cc/hr. Current Visit: No Hospitalist: Subjective Interval history: Mrs Crum is feeling ok- she has used the Dilaudid about every 4 ours since yesterday and her pain has been pretty well controlled. She has not had nausea or vomiting. Her lipase is up to 516. She indicates her pain remains primarily in the LUQ. She has not had fever. Her sats drop to 89-92 % when she takes her oxygen off. She says it did the same thing last hospital stay a week ago and that when she went home it was innormal range on room air. She does not have shortness of breath. She denies history of sleep apnea or OHS. Exam - Constitutional Vitals: Period Temp Pulse Resp BP Sys/Rodriguez Pulse Ox Last 24 Hr 96.6 F-98.4 F 64-80 18-20 102-150/59-81 81-97 General appearance: no acute distress, over weight - Head Head exam: Present: normocephalic, atraumatic - Eye Eye exam: Present: EOMI. Absent: scleral icterus - Respiratory Respiratory exam: Present: clear to auscultation bilaterally - Cardiovascular Cardiovascular exam: Present: regular rate and rhythm - GI/Abdominal GI/Abdominal exam: Present: normal bowel sounds, tenderness (LUQ adn epigastrium ), soft - Extremities Exam Extremities exam: Absent: edema - Neurological Exam Neurological exam: Present: alert, oriented X3, CN II-XII intact. Absent: motor sensory deficit - Skin Skin exam: Present: warm, dry Results - Labs CBC & BMP: 10/09/16 03:54 10/09/16 03:54 Lab Results: I have reviewed the past 24 hour labs (lipase 561) Specialty Discharge - Follow Up or Referrals
[2016-10-09] MEDS: ATORVASTATIN 10 MG TABLET PO SCH (18:05)
[2016-10-09] MEDS: amLODIPine 10 MG TABLET PO SCH (18:05)
[2016-10-09] MEDS: MIRTAZAPINE 15 MG TABLET PO SCH (20:06)
[2016-10-09] MEDS: DOXEPIN 100 MG CAPSULE PO SCH (20:06)
[2016-10-09] MEDS: QUEtiapine 100 MG TABLET PO SCH (20:26)
[2016-10-10] MEDS: SODIUM CHLORIDE 0.9% 1,000 ML IV SCH ×3 (03:14→16:31)
[2016-10-10] MEDS: HYDROmorphone 2 MG/1 ML VIAL IV PRN ×6 (03:15→20:50)
[2016-10-10 06:00] LABS: Basophils % 0.6 % (0.0-0.8); Eosinophils # 0.2 10*3/uL (0.0-0.87); Eosinophils % 4.2 % (0.00-10.9); Hematocrit 35.2 VOL% (35.7-47.0); Hemoglobin 11.1 GM/DL (12.0-16.0); Immature Granulocytes % 0.4 %; Immature Granulocytes Absolute 0.02 #; Lymphocytes # 1.3 10*3/uL (1.4-4.0); Lymphocytes % 27.8 % (21.3-54.2); Mean Corpuscular HGB Conc 31.5 GM/DL (32-36); Mean Corpuscular Hemoglobin 32 PG (27-34); Mean Corpuscular Volume 100.6 FL (87-102); Mean Platelet Volume 11.4 FL (9.6-12.0); Monocytes # 0.4 10*3/uL (0.11-0.8); Monocytes % 7.4 % (1.7-12.7); Neutrophils # 2.8 10*3/uL (1.4-7.4); Neutrophils % 59.6 % (38.7-73.9); Platelet Count 278 T/CUMM (130-400); Red Cell Distribution Width 14.9 % (9.3-17.3); White Blood Count 4.7 T/CUMM (4-12)
[2016-10-10 06:17] LABS: Albumin 2.3 G/DL (3.4-5.0); Bilirubin,Total 0.5 MG/DL (0.2-1.0); Calcium 7.7 MG/DL (8.5-10.1); Osmolality,Calculated 283.7 MOS/KG (273-304); Potassium 3.7 MMOL/L (3.5-5.1)
[2016-10-10] MEDS: ALBUTEROL 2.5 MG/3 ML NEB RESP TX SCH ×2 (07:10→18:58)
--- NOTE | 2016-10-10 08:45 | XRay Report ---
Referring Physician: Alexus Shepherd Exam: XR chest 1V Date: October 10, 2016 at 6:25 AM Reason: Pancreatitis Comparison: Chest one view portable September 28, 2016 Findings: The cardiac silhouette is again enlarged. There are scattered opacities within the left mid and lower lung zones. This is concerning for atelectasis and possibly pneumonia. There is also minimal scattered atelectasis within the right lower lung zone. No pneumothorax is identified, but there is mild left pleural fluid. The osseous structures appear stable. Impression: There are opacities within the left mid and lower lung zones which have slightly increased. This is concerning for atelectasis and possibly pneumonia. There is also mild left pleural fluid. PROCEDURE INTERPRETED AT [facility] ([facility]) DEPARTMENT OF RADIOLOGY Final Report Signed by: Dr. Tracy Short
[2016-10-10] MEDS: THIAMINE 100 MG TABLET PO SCH (09:07)
[2016-10-10] MEDS: MULTIVITAMIN (CENTRUM) TABLET PO SCH (09:07)
[2016-10-10] MEDS: FOLIC ACID 1 MG TABLET PO SCH (09:07)
[2016-10-10] MEDS: PROPRANOLOL 20 MG TABLET PO SCH ×3 (09:07→20:55)
[2016-10-10] MEDS: PANTOPRAZOLE 40 MG TABLET PO SCH (09:08)
[2016-10-10] MEDS: DULoxetine 30 MG CAPSULE PO SCH ×2 (09:09→20:56)
[2016-10-10] MEDS: BECLOMETHASONE 40 MCG/PUFF INHALER 8.7 GM INH SCH ×2 (09:10→22:24)
[2016-10-10] MEDS: LACTULOSE 20 GM/30 ML UDCUP PO SCH ×4 (10:23→23:46)
--- NOTE | 2016-10-10 10:23 | Gastrointestinal Progress Note ---
Assessment and Plan (1) Acute pancreatitis Status: Acute Assessment and plan: 10/10-continued requirement for [id number] narcotics. No nausea/vomiting. Afebrile. WBCs unremarkable. Continue with current treatment plan. Plan an addendum to follow Dr. Estevez. 10/09-pain controlled at present time. No nausea vomiting. Lipase 561. Afebrile , WBCs 4000. No changes at present time. Plan an addendum to follow Dr. Estevez 10/08-recurrence of severe abdominal pain with nausea and vomiting with recent diagnosis of pancreatitis. Lipase level 712 on admission, now trending down. Afebrile, no leukocytosis. Pain more controlled at present. CT findings noted with 3.5 cm by 1.8 cm density at the body of the pancreas. Continue n.p.o. status, IV fluids and analgesics as needed. Plan an addendum to followed by Dr. Estevez Current Visit: No Gastroenterology - PN: Subj Interval history: CC: Pancreatitis Patient is seen awake and alert. States she is feeling a little better at this time, denies any nausea or vomiting. No repeat lipase level noted for today however patient is afebrile and WBCs are unremarkable at 4000. Patient is requesting to try eating today however she is still requiring pain medicine around the clock. Discussed with patient that initiating eating at this time will potentially only increase her abdominal pain more and in lieu of the fact that she is still requiring pain medication around the clock indicates she is not ready to advance to a diet at this time. Patient verbalizes her understanding. Abdomen is soft, nontender. ROS: Denies shortness of breath or chest pain Exam (Progress Note) - Constitutional Vitals: Period Temp Pulse Resp BP Sys/Rodriguez Pulse Ox Last 24 Hr 96.1 F-97.9 F 63-72 16-18 89-130/51-85 87-99 General appearance: normal weight, no acute distress - Head Head exam: Present: normal inspection, normocephalic - Eye Eye exam: Present: other (lids and conjunctiva unremarakble). Absent: scleral icterus - ENT ENT exam: Present: normal exam, normal oropharynx - Neck Neck exam: Present: normal inspection - Respiratory Respiratory exam: Present: clear to auscultation bilaterally. Absent: rales, rhonchi, wheezes - Cardiovascular Cardiovascular exam: Present: regular rate and rhythm. Absent: diastolic murmur , JVD, systolic murmur - GI/Abdominal GI/Abdominal exam: Present: normal bowel sounds, soft. Absent: ascites, distended, mass, organomegaly, tenderness - Extremities Exam Extremities exam: Present: normal inspection, full ROM - Back Exam Back exam: Present: normal inspection - Neurological Exam Neurological exam: Present: alert, oriented X3 - Psychiatric Psychiatric exam: Present: normal affect, normal mood - Skin Skin exam: Present: normal color, warm, dry Results - Labs CBC & BMP: 10/10/16 04:34 10/10/16 04:34 Lab Results: I have reviewed the past 24 hour labs Specialty Discharge - Follow Up or Referrals
--- NOTE | 2016-10-10 16:43 | Hospitalist Progress Note ---
Assessment and Plan (1) Acute pancreatitis Status: Acute Assessment and plan: 1)acute on chronic pancreatitis due to alsohol with pseudocyst formation- lipase now in normal range, pain improving. Perhaps advance diet tomorrow. I will heplock her IVF as she does have some edema and give her a dose of lasix. CXR with mild infiltrates, likely edema from volume required for pancreatitis resuscitation. 2)insomnia, depression - controlled on her meds 3)h/o alcohol abuse- JOSE MIGUEL Arguelles told me yesterday that she admitted she was still drinking on her last admit a week ago. No withdrawal symptoms. 4)hypoxia- sats 92% on RA now. Current Visit: No Hospitalist: Subjective Interval history: Mrs Crum is feeling better today. The pain goes all the way away when she gets medicine today. She has been up in the room, denies shortness of breath. Exam - Constitutional Vitals: Period Temp Pulse Resp BP Sys/Rodriguez Pulse Ox Last 24 Hr 96.1 F-97.9 F 62-72 16-20 89-131/51-87 90-99 General appearance: no acute distress, over weight - Head Head exam: Present: normocephalic, atraumatic - Eye Eye exam: Present: EOMI. Absent: scleral icterus - Respiratory Respiratory exam: Present: clear to auscultation bilaterally - Cardiovascular Cardiovascular exam: Present: regular rate and rhythm - GI/Abdominal GI/Abdominal exam: Present: normal bowel sounds, tenderness, soft - Extremities Exam Extremities exam: Present: edema (trace LE edema) - Neurological Exam Neurological exam: Present: alert, oriented X3 - Skin Skin exam: Present: warm, dry Results - Labs CBC & BMP: 10/10/16 04:34 10/10/16 04:34 Lab Results: I have reviewed the past 24 hour labs Specialty Discharge - Follow Up or Referrals
[2016-10-10] MEDS ORDERED: FUROSEMIDE 40 MG/4 ML VIAL IV ONE (16:46)
[2016-10-10] MEDS: amLODIPine 10 MG TABLET PO SCH (18:10)
[2016-10-10] MEDS: ATORVASTATIN 10 MG TABLET PO SCH (18:10)
[2016-10-10] MEDS: NICOTINE 21 MG/24 HR PATCH TRANSDERM PRN (20:47)
[2016-10-10] MEDS: QUEtiapine 100 MG TABLET PO SCH (20:55)
[2016-10-10] MEDS: MIRTAZAPINE 15 MG TABLET PO SCH (20:57)
[2016-10-10] MEDS: DOXEPIN 100 MG CAPSULE PO SCH (20:57)
[2016-10-11] MEDS: HYDROmorphone 2 MG/1 ML VIAL IV PRN (02:17)
[2016-10-11] MEDS: LACTULOSE 20 GM/30 ML UDCUP PO SCH ×6 (02:40→22:37)
[2016-10-11 06:29] LABS: Albumin 2.6 G/DL (3.4-5.0); Bilirubin,Total 0.5 MG/DL (0.2-1.0); Calcium 8.5 MG/DL (8.5-10.1); Potassium 3.4 MMOL/L (3.5-5.1); Total Protein 5.9 G/DL (6.4-8.3)
[2016-10-11] MEDS: ALBUTEROL 2.5 MG/3 ML NEB RESP TX SCH ×2 (07:04→18:54)
[2016-10-11] MEDS: DULoxetine 30 MG CAPSULE PO SCH ×2 (08:22→21:13)
[2016-10-11] MEDS: THIAMINE 100 MG TABLET PO SCH (08:22)
[2016-10-11] MEDS: FOLIC ACID 1 MG TABLET PO SCH (08:22)
[2016-10-11] MEDS: PANTOPRAZOLE 40 MG TABLET PO SCH (08:22)
[2016-10-11] MEDS: PROPRANOLOL 20 MG TABLET PO SCH ×3 (08:22→21:14)
[2016-10-11] MEDS: MULTIVITAMIN (CENTRUM) TABLET PO SCH (08:23)
[2016-10-11] MEDS: BECLOMETHASONE 40 MCG/PUFF INHALER 8.7 GM INH SCH ×2 (08:48→21:15)
--- NOTE | 2016-10-11 09:39 | Gastrointestinal Progress Note ---
Assessment and Plan (1) Acute pancreatitis Status: Acute Assessment and plan: 10/11-no further nausea vomiting, denies abdominal pain. Afebrile. Lipase down to 313 tolerating clear liquid diet. Plan an addendum to followed by Dr. Estevez 10/10-continued requirement for cgdgkz-bpz-cofti narcotics. No nausea/vomiting. Afebrile. WBCs unremarkable. Continue with current treatment plan. Plan an addendum to follow Dr. Estevez. 10/09-pain controlled at present time. No nausea vomiting. Lipase 561. Afebrile , WBCs 4000. No changes at present time. Plan an addendum to follow Dr. Estevez 10/08-recurrence of severe abdominal pain with nausea and vomiting with recent diagnosis of pancreatitis. Lipase level 712 on admission, now trending down. Afebrile, no leukocytosis. Pain more controlled at present. CT findings noted with 3.5 cm by 1.8 cm density at the body of the pancreas. Continue n.p.o. status, IV fluids and analgesics as needed. Plan an addendum to followed by Dr. Estevez Current Visit: No Gastroenterology - PN: Subj Interval history: CC: Pancreatitis Patient is seen awake and alert sitting up in bed. States she did have a restful night last night. States that she is requiring less pain medication further apart at this time. She started on a clear liquid diet and she is tolerating this well without any increased complaints of abdominal pain, nausea or vomiting. Patient is afebrile. Lipase levels are down to 313. Abdomen soft , nontender. ROS: Denies shortness of breath or chest pain Exam (Progress Note) - Constitutional Vitals: Period Temp Pulse Resp BP Sys/Rodriguez Pulse Ox Last 24 Hr 96.3 F-97.9 F 62-74 16-20 106-131/66-87 88-100 General appearance: normal weight, no acute distress - Head Head exam: Present: normal inspection, normocephalic - Eye Eye exam: Present: other (Lids and conjunctive are unremarkable). Absent: scleral icterus - ENT ENT exam: Present: normal exam, normal oropharynx - Neck Neck exam: Present: normal inspection - Respiratory Respiratory exam: Present: clear to auscultation bilaterally. Absent: rales, rhonchi, wheezes - Cardiovascular Cardiovascular exam: Present: regular rate and rhythm. Absent: diastolic murmur , JVD, systolic murmur - GI/Abdominal GI/Abdominal exam: Present: normal bowel sounds, soft. Absent: ascites, distended, mass, organomegaly, tenderness - Extremities Exam Extremities exam: Present: normal inspection, full ROM - Back Exam Back exam: Present: normal inspection - Neurological Exam Neurological exam: Present: alert, oriented X3 - Psychiatric Psychiatric exam: Present: normal affect, normal mood - Skin Skin exam: Present: normal color, warm, dry Results - Labs CBC & BMP: 10/10/16 04:34 10/11/16 05:03 Lab Results: I have reviewed the past 24 hour labs Specialty Discharge - Follow Up or Referrals
--- NOTE | 2016-10-11 10:45 | Hospitalist Progress Note ---
Assessment and Plan - Time spent with patient Time spent with patient: Less than 30 minutes (1) Acute alcoholic pancreatitis Status: Acute Assessment and plan: Mrs Crum is a 55-year-old white female admitted with acute on chronic alcoholic pancreatitis with pseudocyst formation. Dr. Shepherd will see and examine patient and further recommendations to follow. Acute on chronic alcoholic pancreatitis with pseudocyst formation--patient's lipase is now in the normal range and pain is improving. Patient was allowed to have clear liquid diet this morning and she did tolerate this well. Her IV has been hep-locked and she has no complaints of mild cough or edema residuals from her resuscitation. Encouraged patient to start p.o. pain meds and to use the Dilaudid only for breakthrough pain. Patient did understand this but she states that the [place] makes her sick and would prefer Percocets. Will switch up her pain medicines to Percocet. We will also decrease her dosage of Dilaudid. Insomnia, depression--this is controlled on her home meds. Patient seems to be in good spirits today. History of alcohol abuse--patient is still denying this. She is having no withdrawal symptoms. Hypokalemia--we will give patient 1 dose of potassium this morning. She was given IV Lasix yesterday which could be the culprit. Current Visit: No (2) Fibromyalgia Status: Chronic Current Visit: No (3) Depression Status: Chronic Current Visit: No (4) Tobacco abuse Status: Acute Current Visit: No (5) Hypokalemia Status: Acute Current Visit: No (6) Alcohol abuse Status: Acute Current Visit: Yes (7) Insomnia Status: Acute Current Visit: Yes (8) Hypoxia Status: Acute Current Visit: Yes Hospitalist: Subjective Interval history: Patient feels a little bit better this morning. She was given clear liquids this morning and seemed to tolerate those okay. Discussed with her that she needs to start taking p.o. pain pills and decrease the amount of Dilaudid. Patient was understanding of this and agreeable. Exam - Constitutional Vitals: Period Temp Pulse Resp BP Sys/Rodriguez Pulse Ox Last 24 Hr 96.3 F-97.9 F 62-74 16-20 106-131/66-87 88-100 Exam: 55-year-old white female, no acute distress, alert and oriented Chest clear CV regular rate and rhythm Abdomen soft, mildly tender in left upper quadrant and epigastric region Extremities no edema Results - Labs CBC & BMP: 10/10/16 04:34 10/11/16 05:03 Lab Results: I have reviewed the past 24 hour labs Specialty Discharge - Follow Up or Referrals
[2016-10-11] MEDS ORDERED: POTASSIUM CHLORIDE 20 MEQ TABLET PO ONE (10:47)
[2016-10-11] MEDS ORDERED: HYDROmorphone 2 MG/1 ML VIAL IV PRN (10:48)
[2016-10-11] MEDS ORDERED: oxyCODONE/ACETAMINOPHEN 5-325 MG TABLET PO PRN (10:49)
[2016-10-11] MEDS: oxyCODONE/ACETAMINOPHEN 5-325 MG TABLET PO PRN ×2 (13:22→18:25)
[2016-10-11] MEDS: ATORVASTATIN 10 MG TABLET PO SCH ×2 (17:44→18:03)
[2016-10-11] MEDS: amLODIPine 10 MG TABLET PO SCH ×2 (17:44→18:03)
[2016-10-11] MEDS: DOXEPIN 100 MG CAPSULE PO SCH (21:16)
[2016-10-11] MEDS: QUEtiapine 100 MG TABLET PO SCH (21:17)
[2016-10-11] MEDS: MIRTAZAPINE 15 MG TABLET PO SCH (21:17)
[2016-10-12] MEDS: LACTULOSE 20 GM/30 ML UDCUP PO SCH ×4 (03:45→13:47)
[2016-10-12] MEDS: ALBUTEROL 2.5 MG/3 ML NEB RESP TX SCH (07:03)
[2016-10-12] MEDS: oxyCODONE/ACETAMINOPHEN 5-325 MG TABLET PO PRN ×2 (08:08→13:30)
--- NOTE | 2016-10-12 09:19 | Gastrointestinal Progress Note ---
Assessment and Plan (1) Acute pancreatitis Status: Acute Assessment and plan: 10/22-N/V resolved, abd pain improved with oral analgesics. Tolerating diet advancement. Lipase 313. Plan and addendum to follow by Dr Estevez 10/11-no further nausea vomiting, denies abdominal pain. Afebrile. Lipase down to 313 tolerating clear liquid diet. Plan an addendum to followed by Dr. Estevez 10/10-continued requirement for lbudvy-shm-kijsj narcotics. No nausea/vomiting. Afebrile. WBCs unremarkable. Continue with current treatment plan. Plan an addendum to follow Dr. Estevez. 10/09-pain controlled at present time. No nausea vomiting. Lipase 561. Afebrile , WBCs 4000. No changes at present time. Plan an addendum to follow Dr. Estevez 10/08-recurrence of severe abdominal pain with nausea and vomiting with recent diagnosis of pancreatitis. Lipase level 712 on admission, now trending down. Afebrile, no leukocytosis. Pain more controlled at present. CT findings noted with 3.5 cm by 1.8 cm density at the body of the pancreas. Continue n.p.o. status, IV fluids and analgesics as needed. Plan an addendum to followed by Dr. Estevez Current Visit: No Gastroenterology - PN: Subj Interval history: CC: Pancreatitis Pt is awake and alert sitting up in bed. She states she is feeling better today. She had a restful night and states her pain is better controlled. She has transitioned to oral analgesics and states this is holding her pain for several hours at a time. She is tolerating her diet advancement and denies any nausea or vomiting. She is afebrile. Lipase is down at 313. ROS: Denies SOB or chest pain Exam (Progress Note) - Constitutional Vitals: Period Temp Pulse Resp BP Sys/Rodriguez Pulse Ox Last 24 Hr 96.0 F-98.2 F 62-76 16-20 95-118/51-73 87-97 General appearance: normal weight, no acute distress - Head Head exam: Present: normal inspection, normocephalic - Eye Eye exam: Present: other (lids and conjunctiva unremarkable). Absent: scleral icterus - ENT ENT exam: Present: normal exam, normal oropharynx - Neck Neck exam: Present: normal inspection - Respiratory Respiratory exam: Present: clear to auscultation bilaterally. Absent: rales, rhonchi, wheezes - Cardiovascular Cardiovascular exam: Present: regular rate and rhythm. Absent: diastolic murmur , JVD, systolic murmur - GI/Abdominal GI/Abdominal exam: Present: normal bowel sounds, soft. Absent: ascites, distended, mass, organomegaly, tenderness - Extremities Exam Extremities exam: Present: normal inspection, full ROM - Back Exam Back exam: Present: normal inspection - Neurological Exam Neurological exam: Present: alert, oriented X3 - Psychiatric Psychiatric exam: Present: normal affect, normal mood - Skin Skin exam: Present: normal color, warm, dry Results - Labs CBC & BMP: 10/10/16 04:34 10/11/16 05:03 Lab Results: I have reviewed the past 24 hour labs Specialty Discharge - Follow Up or Referrals
[2016-10-12] MEDS: PROPRANOLOL 20 MG TABLET PO SCH ×2 (10:12→15:22)
[2016-10-12] MEDS: MULTIVITAMIN (CENTRUM) TABLET PO SCH (10:12)
[2016-10-12] MEDS: THIAMINE 100 MG TABLET PO SCH (10:13)
[2016-10-12] MEDS: DULoxetine 30 MG CAPSULE PO SCH (10:13)
[2016-10-12] MEDS: FOLIC ACID 1 MG TABLET PO SCH (10:14)
[2016-10-12] MEDS: PANTOPRAZOLE 40 MG TABLET PO SCH (10:14)
[2016-10-12] MEDS: BECLOMETHASONE 40 MCG/PUFF INHALER 8.7 GM INH SCH (10:14)
--- NOTE | 2016-10-12 10:15 | Hospitalist Progress Note ---
Assessment and Plan - Time spent with patient Time spent with patient: Less than 30 minutes (1) Acute alcoholic pancreatitis Status: Acute Assessment and plan: Mrs Crum is a 55-year-old white female admitted with acute on chronic alcoholic pancreatitis with pseudocyst formation. Dr. Sehpherd will see and examine patient and further recommendations to follow. Acute on chronic alcoholic pancreatitis with pseudocyst formation--patient's lipase is now in the normal range and pain is improving. Patient was allowed to have clear liquid diet this morning and she did tolerate this well. Her IV has been hep-locked and she has no complaints of mild cough or edema residuals from her resuscitation. Encouraged patient to start p.o. pain meds and to use the Dilaudid only for breakthrough pain. Patient did understand this but she states that the [place] makes her sick and would prefer Percocets. Will switch up her pain medicines to Percocet. We will also decrease her dosage of Dilaudid. Insomnia, depression--this is controlled on her home meds. Patient seems to be in good spirits today. History of alcohol abuse--patient is still denying this. She is having no withdrawal symptoms. Hypokalemia--we will give patient 1 dose of potassium this morning. She was given IV Lasix yesterday which could be the culprit. 10/12/16--patient is doing better w pain control on Percocets now. Will advance her diet to a soft mechanical diet for lunch. Will check on her this afternoon and if she did well with this patient can go home on soft diet with Percocets for pain. Dr. Estevez wants to see her back in clinic in 4-6 weeks. He may repeat a CT scan at that time. Had a discussion again with patient about alcohol cessation. She understands and states she will be compliant. All this is been discussed with Dr. Shepherd. Further recommendations to follow. Current Visit: No (2) Fibromyalgia Status: Chronic Current Visit: No (3) Depression Status: Chronic Current Visit: No (4) Tobacco abuse Status: Acute Current Visit: No (5) Hypokalemia Status: Acute Current Visit: No (6) Alcohol abuse Status: Acute Current Visit: Yes (7) Insomnia Status: Acute Current Visit: Yes (8) Hypoxia Status: Acute Current Visit: Yes Hospitalist: Subjective Interval history: Patient is feeling better this morning. She is having better pain control with the Percocet and using less of the Dilaudid. She did well with a full liquid diet and think she can advance to a soft mechanical diet today. She is asking if maybe she could go home today. Exam - Constitutional Vitals: Period Temp Pulse Resp BP Sys/Rodriguez Pulse Ox Last 24 Hr 96.0 F-98.2 F 62-76 16-20 95-118/51-73 87-97 Exam: 55-year-old white female, no acute distress, alert and oriented Chest clear CV regular rate and rhythm Abdomen soft, mildly tender in epigastric area Extremities no edema Results - Labs CBC & BMP: 10/10/16 04:34 10/11/16 05:03 Lab Results: I have reviewed the past 24 hour labs Specialty Discharge - Follow Up or Referrals
[2016-10-12 12:20] VITALS: BP 113/73
--- NOTE | 2016-10-12 14:29 | Discharge Summary ---
Hospital Course - Hospital Course Hospital Course: Mrs Crum returned to the hospital less than a week after discharge for treatment of acute pancreatitis. Her lipase was around 700 on admission and has returned to normal. She was treated with supportive acare as before with IV Dilaudid and then oral percocet (which works better than norco for her) and IVF adn bowel rest. Dr Estevez saw her again. Her abdominal CT showed that the pseudocysts/fluid collections seen on a prior CT had enlarged somewhat. She has had abatement of her pain and has tolerated a soft diet today. She asks to go home and I agree that she has received maximum benefit from this hospital stay. She should follow up with her PCP. She can see Dr Estevez as needed. She will have Percocet 5, 1-2 po q6h prn, #30, no refills. She was encouraged to quit drinking- she initially said she stopped months ago but then I discovered she told them on last admit she was still drinking. She is not interested in any treatment program at this point. - Time spent with patient Time with patient DS: Greater than 30 minutes (care coordination, discharge planning , medicine reconciliation, documentation.) Diagnosis - Discharge Diagnosis (1) Acute pancreatitis Status: Acute Specialty Discharge - Follow Up or Referrals Follow up with: Your, PCP [Other] - 1 Week (please get her a doctor if she doesn't have one.) Douglas Estevez MD [Physician] - (4-6 weeks in clinic ) Discharge Plan - Discharge Data Disposition: Disch To Home/Self Care Condition at Discharge: Stable Discharge Diet: other (soft diet for about a week ) Activity: resume usual activities as tolerated - Discharge Medications New Multivitamin (Centrum) [Centrum Tab] 1 tablet PO DAILY tablet Thiamine Tab [Vitamin B1 Tab] 100 mg PO DAILY tablet oxyCODONE/ACETAMINOPHEN 5-325 [Percocet 5-325] 2 tablet PO Q4H PRN #30 tablet PRN Reason: Pain Moderate (4-7) Folic Acid Tab 1 mg PO DAILY tablet Continue QUEtiapine [SEROquel] 100 mg PO BEDTIME Mirtazapine 30 mg PO BEDTIME Atorvastatin [Lipitor] 10 mg PO QPM Tizanidine HCl 2 mg PO TID PRN PRN Reason: Muscle Spasm Loratadine [Claritin] 10 mg PO DAILY PRN PRN Reason: Allergy Symptoms Duloxetine HCl [Cymbalta] 60 mg PO BID Propranolol Tab [Inderal Tab] 20 mg PO TID Nicotine 21 mg/24 Hr Patch [Nicoderm CQ 21 mg/24 hr Patch] 1 patch TRANSDERM DAILY PRN #0 patch PRN Reason: Nicotine Cravings amLODIPine [Norvasc] 10 mg PO QPM tablet Doxepin [SINEquan] 100 mg PO BEDTIME hydroCHLOROthiazide [Hydrochlorothiazide] 12.5 mg PO QAM Fluticasone 50 Mcg Nasal [place] [Flonase Nasal [place]] 1 spray BOTH NARES DAILY PRN PRN Reason: Allergy Symptoms Beclomethasone 40 Mcg Inhaler [Qvar 40 Mcg] 2 puffs PO BID Albuterol Sulfate [Proair HFA] 2 puffs PO BID Pantoprazole Tab [Protonix Tab] 40 mg PO QAM Discontinued Benzonatate [Tessalon] 200 mg PO TID PRN PRN Reason: Cough HYDROcodone/ACETAMIN 5-325 [[place] 5-325] 1 tablet PO Q4H PRN #30 tablet PRN Reason: Pain Mild (1-3) - Follow Up or Referral Follow Up: Your, PCP [Other] - 1 Week (please get her a doctor if she doesn't have one.) Douglas Estevez MD [Physician] - (as needed) - Forms/Instructions Instructions: How to Stop Smoking (DC) Additional Discharge Instructions: Avoid alcohol completely. Consider outpatient counseling or support group if you think that will help you stop drinking. Exam - Constitutional Vitals: Period Temp Pulse Resp BP Sys/Rodriguez Pulse Ox Last 24 Hr 96.0 F-98.2 F 57-76 16-20 95-117/51-73 87-97 General appearance: no acute distress, over weight - Head Head exam: Present: normocephalic, atraumatic - Eye Eye exam: Present: EOMI. Absent: scleral icterus - Respiratory Respiratory exam: Present: clear to auscultation bilaterally - Cardiovascular Cardiovascular exam: Present: regular rate and rhythm - GI/Abdominal GI/Abdominal exam: Present: normal bowel sounds, soft. Absent: tenderness - Extremities Exam Extremities exam: Absent: edema DS: Provider Date of admission: 10/07/16 16:48 Primary care physician: . No PCP Attending physician on admission: Steve Mendez MD Consults: 10/07/16 18:18 Consult to Pharmacy [CONS] Routine Reason for Pharmacy Consult: Adjust Meds Renal Funct 10/08/16 13:03 Consult to Physician [CONS] Routine Comment: pancreatitis Consulting Provider: Douglas Estevez Person Notified: amor stratton Date Notified: 10/08/16 Time Notified: 13:53 Consult Notification Comment: spoke to amor, left message with office as well. Discharging clinician: Alexus Shepherd MD
== END 2016-10-12 15:35 | disposition home or self-care (01) | DRG 439 ==
LOC: N.ED 14:54 → N.EDINP 16:48 → SUATTDRO 16:48 → N.TELEN 17:45
PROVIDERS: ADMIT Internal Medicine Infectious Disease; ATTEND Internal Medicine

== ENCOUNTER 2016-12-13 06:00 | Inpatient (IN) ==
--- NOTE | 2016-12-10 15:28 | EKG Report ---
Stationary ECG Study [facility] Test Date: 12/10/2016 3:20:27 PM Pat Name: BERE FERNANDEZ Department: Room: Gender: F Equipment Service Technician: SHELTON 12-13-16 : 1960 Requested by: Lux Perez Order Number: [id number] Reading MD: NEGRO DAILY Intervals Sandy Rate: 96 P: 45 NC: 151 QRS: 68 QRSD: 86 T: 26 QT: 345 QTc: 399 Interpretive Statements SINUS RHYTHM NONSPECIFIC T-WAVE ABNORMALITY Electronically Signed On 12-10-16 15:32:49 CDT by NEGRO DAILY [email or web address]
--- NOTE | 2016-12-10 15:58 | XRay Report ---
XR chest 2V Indication: Preop respiratory evaluation. Chest 2 views: Comparison 10/10/2016. The heart size and mediastinal contour are normal. The lungs and pleural spaces are clear. Bones are unremarkable. Impression: Negative chest. PROCEDURE INTERPRETED AT [facility] DEPARTMENT OF RADIOLOGY Final Report Signed by: Dario Edwards M.D.
[~2016-12-13 06:00] MED LIST: CLINDAMYCIN INJ 600 MG in PREMIX 1 EACH IV ONE
--- NOTE | 2016-12-13 09:02 | History and Physical Update ---
History and Physical Update - History and Physical H&P was reviewed, the patient examined and there: are no changes in the patients condition since last H&P was completed. - Dictation Physical: refer to scanned H&P
[2016-12-13] MEDS ORDERED: HYDROmorphone 2 MG/1 ML VIAL ONE ×3 (09:13→14:41)
[2016-12-13] MEDS ORDERED: SCOPOLAMINE 1.5 MG PATCH TRANSDERM ONE ×2 (09:13→09:23)
[2016-12-13] MEDS ORDERED: FAMOTIDINE 20 MG/2 ML VIAL IV ONE ×2 (09:14→09:23)
[2016-12-13] MEDS: LACTATED RINGERS 1,000 ML IV SCH ×5 (09:20→23:56)
[2016-12-13] MEDS ORDERED: HYDROmorphone 2 MG/1 ML VIAL IV ONE ×2 (09:23→11:02)
[2016-12-13] MEDS ORDERED: CLINDAMYCIN INJ 50 ML IV ONE (09:57)
[2016-12-13] MEDS ORDERED: MIDAZOLAM 2 MG/2 ML VIAL ONE (13:19)
[2016-12-13] MEDS ORDERED: fentaNYL 100 MCG/2 ML VIAL ONE ×2 (13:19→14:45)
[2016-12-13] MEDS ORDERED: MICROFIBRILLAR COLLAGEN POWDER 1 GM CAN TOP ONE (13:49)
--- NOTE | 2016-12-13 13:57 | Operative Note ---
Date of procedure: 12/13/16 Procedure: I assisted Dr. Perez throughout the procedure on Selene Ureña which was an exploration with pancreatic cyst gastrostomy. Surgeon / Physician: Bonilla Lovelace Discharge Plan - Discharge Medications No Action QUEtiapine [SEROquel] 100 mg PO BEDTIME Mirtazapine 30 mg PO BEDTIME Atorvastatin [Lipitor] 10 mg PO QPM Tizanidine HCl 2 mg PO TID PRN PRN Reason: Muscle Spasm Loratadine [Claritin] 10 mg PO DAILY PRN PRN Reason: Allergy Symptoms Duloxetine HCl [Cymbalta] 60 mg PO BID Propranolol Tab [Inderal Tab] 20 mg PO TID Nicotine 21 mg/24 Hr Patch [Nicoderm CQ 21 mg/24 hr Patch] 1 patch TRANSDERM DAILY PRN #0 patch PRN Reason: Nicotine Cravings amLODIPine [Norvasc] 10 mg PO QPM tablet Multivitamin (Centrum) [Centrum Tab] 1 tablet PO DAILY tablet Thiamine Tab [Vitamin B1 Tab] 100 mg PO DAILY tablet Ondansetron Tab [Zofran Tab] 4 mg PO Q4H PRN PRN Reason: Nausea Doxepin [SINEquan] 100 mg PO BEDTIME hydroCHLOROthiazide [Hydrochlorothiazide] 12.5 mg PO QAM Fluticasone 50 Mcg Nasal [place] [Flonase Nasal [place]] 1 spray BOTH NARES DAILY PRN PRN Reason: Allergy Symptoms Beclomethasone 40 Mcg Inhaler [Qvar 40 Mcg] 2 puffs PO BID Albuterol Sulfate [Proair HFA] 2 puffs PO BID Pantoprazole Tab [Protonix Tab] 40 mg PO QAM Folic Acid Tab 1 mg PO DAILY tablet HYDROcodone/ACETAMIN 10-325 [[place] 10-325] 1 tablet PO Q4-6H PRN PRN Reason: Pain - Follow Up or Referral - Forms/Instructions
[2016-12-13] MEDS ORDERED: ONDANSETRON 4 MG/2 ML VIAL IV PRN (14:40)
[2016-12-13] MEDS ORDERED: ONDANSETRON 4 MG/2 ML VIAL ONE (14:41)
[2016-12-13] MEDS ORDERED: DESFLURANE 1 UNIT/15 MINUTE INH ONE (14:45)
[2016-12-13] MEDS: HYDROmorphone 2 MG/1 ML VIAL IV PRN ×4 (14:45→15:00)
--- NOTE | 2016-12-13 14:48 | Operative Note ---
Date of procedure: 12/13/16 Pre-op diagnosis: Enlarging symptomatic pancreatic pseudocyst Post-op diagnosis: same Procedure: Preoperative diagnosis Enlarging symptomatic pancreatic pseudocyst Postoperative diagnosis Same Procedures performed Laparotomy with cyst gastrostomy 22 modifier Findings The peritoneum had fused to the intra-abdominal structures possibly from prior severe pancreatitis episodes. The left lateral segment of the liver was fused to the anterior wall of the stomach likely from similar reasons. There is a cystic cavity superior to the lesser curvature of the stomach that was about 2 cm in size and could correspond to a smaller cystic lesion seen on CT scan in the past which was entered during dissection and fluid that was drained look like pancreatic pseudocyst fluid. The main pseudocyst of interest was drained with an anterior gastrotomy through the posterior wall the stomach after it was aspirated with an 18-gauge needle. Electrocautery was used to open the cyst and loculations were broken up digitally. A ONEAL stapler was then used to open the cyst in communication with the posterior wall of the stomach. The remainder of the cyst gastrostomy was performed with 2-0 chromic sutures. The tip of the NG tube was placed in the cyst cavity. A drain was placed after the stomach was closed to drain the region and in particular the smaller cystic cavity that was entered during dissection of the left lobe of the liver off the stomach. The significant inflammatory changes with adhesions within the abdomen made the case take more than twice usual length of time. Complications None apparent Surgeon Chris administrative assistant coordinator [place] Blood loss 100 mL Indications Enlarging symptomatic pancreatic pseudocyst Description of procedure The patient was taken to the operating room and transferred to the operating table in the supine position. Pressure points were padded and SCDs were placed lower extremities. General endotracheal anesthesia was administered. A Melton catheter was placed with clear urine output. The abdomen was prepped with chlorhexidine and draped sterilely. Preoperative antibiotics were administered and a timeout was performed. A midline incision was made with a scalpel and electrocautery was used to dissected the anterior abdominal wall fascia. The peritoneum was entered but there is not a free space that allowed easy access to the abdomen. Blunt dissection was used to free up a small cavity under the peritoneum and it was sequentially opened with electrocautery. Adhesions were then taken down with sharp dissection and what was encountered was extensive adhesions throughout the abdominal cavity. Eventually this was freed up enough to visualize the upper abdomen and its contents. The left lateral segment of the liver had fused down to the anterior wall the stomach and the stomach was actually not even visible initially. The plane was developed between the left lateral lobe of the liver and the anterior wall of the stomach and during this dissection the cyst cavity was entered superior to the lesser curvature of the stomach which contained clear fluid consistent with a pseudocyst. This cyst cavity only measured about 2 cm in size. A Bookwalter retractor was placed to assist with exposure. Once the left lateral lobe of the liver was dissected away from the anterior wall of the stomach we were able to palpate the area of the pseudocyst through the stomach. 2-0 silk stay sutures were placed in the stomach and the stomach was opened anteriorly with electrocautery. The posterior wall the stomach was stuck to the firm mass in the retroperitoneum which was thought to be the pseudocyst. Several passes with 18-gauge needle in this area failed to yield any pseudocyst fluid. An ultrasound was then used with a sterile probe cover and the area of the pseudocyst was found through the posterior wall the stomach and accessed with a needle under ultrasound guidance. Pseudocyst fluid was obtained. The ultrasound probe was then removed from the field and electrocautery was used to open the cyst cavity around the needle. The cavity was opened until I could easily accommodate a hemostat and then was spread with hemostat. The ONEAL stapler was then used to open the communication between the stomach and the cyst cavity with a 45 mm stapler load. The remaining edges of the cyst were sewn to the stomach with 2- 0 chromic sutures. The NG tube was then passed by anesthesia and the tip of the NG tube was placed within the cyst cavity. The suction was used to remove all cyst contents. The stomach was closed with 3-0 Vicryl running suture and oversewn with 2-0 silk seromuscular sutures. There were couple areas on the liver that had bled during the dissection and a combination of Surgicel as well as Avitene and Tisseel was placed over the anterior gastrotomy closure as well as over these areas and a WILMER drain was placed to coursing over the area of the cyst above the lesser curvature of the stomach that had been drained. The omentum was then tacked over the closure side of the stomach and this cystic area. Because of the difficulty with the section and chronic inflammation with adhesive disease the case took more than twice usual length of time. The WILMER drain exited through a separate stab incision in the right lower abdominal wall and the catheter was sewn in with a 2-0 silk suture. The WILMER drain was hooked up to bulb suction and the fascia was closed with #1 non-looped PDS sutures and #1 Vicryl interrupted [id number] sutures spaced out throughout the incision. The wound was irrigated and closed with skin clips. Sterile dressings were applied. The Melton catheter was removed and the patient was awakened from anesthesia and transferred to recovery. Postoperative plan Continue NG tube to suction for 48 hours Implants: #10 WILMER drain Anesthesia: PEEWEE Surgeon / Physician: Lux Perez Brick Sorter: Bonilla Lovelace Estimated blood loss: minimal Specimens: none sent Condition: stable Disposition: PACU Discharge Plan - Discharge Medications No Action QUEtiapine [SEROquel] 100 mg PO BEDTIME Mirtazapine 30 mg PO BEDTIME Atorvastatin [Lipitor] 10 mg PO QPM Tizanidine HCl 2 mg PO TID PRN PRN Reason: Muscle Spasm Loratadine [Claritin] 10 mg PO DAILY PRN PRN Reason: Allergy Symptoms Duloxetine HCl [Cymbalta] 60 mg PO BID Propranolol Tab [Inderal Tab] 20 mg PO TID Nicotine 21 mg/24 Hr Patch [Nicoderm CQ 21 mg/24 hr Patch] 1 patch TRANSDERM DAILY PRN #0 patch PRN Reason: Nicotine Cravings amLODIPine [Norvasc] 10 mg PO QPM tablet Multivitamin (Centrum) [Centrum Tab] 1 tablet PO DAILY tablet Thiamine Tab [Vitamin B1 Tab] 100 mg PO DAILY tablet Ondansetron Tab [Zofran Tab] 4 mg PO Q4H PRN PRN Reason: Nausea Doxepin [SINEquan] 100 mg PO BEDTIME hydroCHLOROthiazide [Hydrochlorothiazide] 12.5 mg PO QAM Fluticasone 50 Mcg Nasal [place] [Flonase Nasal [place]] 1 spray BOTH NARES DAILY PRN PRN Reason: Allergy Symptoms Beclomethasone 40 Mcg Inhaler [Qvar 40 Mcg] 2 puffs PO BID Albuterol Sulfate [Proair HFA] 2 puffs PO BID Pantoprazole Tab [Protonix Tab] 40 mg PO QAM Folic Acid Tab 1 mg PO DAILY tablet HYDROcodone/ACETAMIN 10-325 [[place] 10-325] 1 tablet PO Q4-6H PRN PRN Reason: Pain - Follow Up or Referral - Forms/Instructions
[2016-12-13] MEDS ORDERED: HYDROmorphone PCA 30 MG/30 ML SYRINGE IV ONE (15:03)
[2016-12-13] MEDS ORDERED: FLUTICASONE 50 MCG NASAL SPRAY 16 GM BOTTLE BOTH NARES PRN (15:04)
[2016-12-13] MEDS: HYDROmorphone PCA 30 MG/30 ML SYRINGE IV SCH (15:20)
[2016-12-13] MEDS ORDERED: LACTATED RINGERS 1,000 ML IV ONE (17:42)
--- NOTE | 2016-12-13 17:42 | Event Note ---
General Surgery Progress Note Chief complaint This patient is a 56-year-old woman admitted following laparotomy with cyst gastrostomy on 12/13/2016 Interval history The patient's blood pressure has been running on the low side since surgery. She has a low-grade tachycardia. She has no orthostatic symptoms. She is complaining of abdominal cramping. Her NG tube has minimal bloody output and her WILMER drain is serosanguineous Physical exam Afebrile with tachycardia and borderline low blood pressure Abdominal exam with expected postoperative tenderness WILMER drain is serosanguineous Heart is regular but tachycardic Labs CBC is pending Imaging None new Assessment and plan We will get a stat CBC and type and screen right now although the patient has good color and hopefully there is no evidence of need for transfusion Administer IV fluid bolus to help with blood pressure Continue pain medicine and add Robaxin muscle relaxant We will continue labetalol but hold other home blood pressure medicines Continue NG tube to LIWS Continue WILMER to compressed bulb suction
[2016-12-13] MEDS: PANTOPRAZOLE 40 MG VIAL IV SCH (17:45)
[2016-12-13] MEDS: PROPRANOLOL 20 MG TABLET PO SCH ×2 (17:50→21:25)
--- NOTE | 2016-12-13 17:51 | Event Note ---
Patient seen and surgery findings reviewed. Courtesy visit. Patient is awake and alert. Has expected discomfort after cystogastrostomy.
[2016-12-13 18:21] LABS: Basophils % 0.2 % (0.0-0.8); Eosinophils % 0.1 % (0.00-10.9); Hematocrit 36.3 VOL% (35.7-47.0); Hemoglobin 11.9 GM/DL (12.0-16.0); Immature Granulocytes % 0.7 %; Immature Granulocytes Absolute 0.06 #; Lymphocytes # 0.8 10*3/uL (1.4-4.0); Lymphocytes % 9.1 % (21.3-54.2); Mean Corpuscular HGB Conc 32.8 GM/DL (32-36); Mean Corpuscular Hemoglobin 31 PG (27-34); Mean Corpuscular Volume 95.5 FL (87-102); Mean Platelet Volume 10.4 FL (9.6-12.0); Monocytes # 0.3 10*3/uL (0.11-0.8); Monocytes % 3.8 % (1.7-12.7); Neutrophils # 7.2 10*3/uL (1.4-7.4); Neutrophils % 86.1 % (38.7-73.9); Platelet Count 355 T/CUMM (130-400); Red Cell Distribution Width 16.8 % (9.3-17.3); White Blood Count 8.4 T/CUMM (4-12)
[2016-12-13] MEDS: METHOCARBAMOL INJ 500 MG in SODIUM CHLORIDE 0.9% 100 ML IV SCH (19:47)
[2016-12-13] MEDS: MIRTAZAPINE 30 MG TABLET PO SCH (21:22)
[2016-12-13] MEDS: DOXEPIN 25 MG CAPSULE PO SCH (21:22)
[2016-12-13] MEDS: DULoxetine 30 MG CAPSULE PO SCH (21:24)
[2016-12-13] MEDS: ATORVASTATIN 10 MG TABLET PO SCH (21:24)
[2016-12-13] MEDS: QUEtiapine 100 MG TABLET PO SCH (21:24)
[2016-12-13] MEDS: amLODIPine 10 MG TABLET PO SCH (21:26)
[2016-12-13] MEDS: BECLOMETHASONE 40 MCG/PUFF INHALER 8.7 GM INH SCH (21:26)
[2016-12-14] MEDS: METHOCARBAMOL INJ 500 MG in SODIUM CHLORIDE 0.9% 100 ML IV SCH ×3 (01:20→17:03)
[2016-12-14] MEDS: ALBUTEROL 2.5 MG/3 ML NEB RESP TX SCH ×3 (02:47→19:47)
[2016-12-14] MEDS: tiZANidine 4 MG TABLET PO PRN ×2 (04:11→14:02)
[2016-12-14] MEDS: ONDANSETRON 4 MG/2 ML VIAL IV PRN ×3 (04:37→14:01)
[2016-12-14 06:08] LABS: Basophils % 0.4 % (0.0-0.8); Eosinophils % 0.4 % (0.00-10.9); Hematocrit 34.3 VOL% (35.7-47.0); Hemoglobin 11.2 GM/DL (12.0-16.0); Immature Granulocytes % 0.5 %; Immature Granulocytes Absolute 0.04 #; Lymphocytes # 0.5 10*3/uL (1.4-4.0); Lymphocytes % 6.8 % (21.3-54.2); Mean Corpuscular HGB Conc 32.7 GM/DL (32-36); Mean Corpuscular Hemoglobin 32 PG (27-34); Mean Corpuscular Volume 96.6 FL (87-102); Mean Platelet Volume 10.8 FL (9.6-12.0); Monocytes # 0.5 10*3/uL (0.11-0.8); Monocytes % 5.7 % (1.7-12.7); Neutrophils # 6.8 10*3/uL (1.4-7.4); Neutrophils % 86.2 % (38.7-73.9); Platelet Count 335 T/CUMM (130-400); Red Blood Count 3.55 MC/CUMM (3.8-5.5); Red Cell Distribution Width 16.9 % (9.3-17.3); White Blood Count 7.9 T/CUMM (4-12)
[2016-12-14 06:35] LABS: Albumin 2.6 G/DL (3.4-5.0); Bilirubin,Total 0.7 MG/DL (0.2-1.0); Calcium 8.8 MG/DL (8.5-10.1); Osmolality,Calculated 279.3 MOS/KG (273-304); Potassium 4.1 MMOL/L (3.5-5.1); Total Protein 5.7 G/DL (6.4-8.3)
[2016-12-14] MEDS: LACTATED RINGERS 1,000 ML IV SCH ×3 (09:07→23:10)
[2016-12-14] MEDS: PROPRANOLOL 20 MG TABLET PO SCH ×3 (09:08→20:55)
[2016-12-14] MEDS: DULoxetine 30 MG CAPSULE PO SCH ×2 (09:08→20:55)
[2016-12-14] MEDS: THIAMINE 100 MG TABLET PO SCH (09:08)
[2016-12-14] MEDS: MULTIVITAMIN (CENTRUM) TABLET PO SCH (09:08)
[2016-12-14] MEDS: FOLIC ACID 1 MG TABLET PO SCH (09:08)
[2016-12-14] MEDS: LORATADINE 10 MG TABLET PO PRN (09:09)
[2016-12-14] MEDS: BECLOMETHASONE 40 MCG/PUFF INHALER 8.7 GM INH SCH ×2 (09:12→20:54)
[2016-12-14] MEDS: ENOXAPARIN 40 MG/0.4 ML SYRINGE SUBCUT SCH (09:17)
[2016-12-14] MEDS: PANTOPRAZOLE 40 MG VIAL IV SCH (09:17)
[2016-12-14] MEDS ORDERED: NEOSTIGMINE 10 MG/10 ML VIAL ONE (09:20)
[2016-12-14] MEDS ORDERED: PHENYLEPHRINE 50 MG/5 ML VIAL ONE (09:20)
[2016-12-14] MEDS ORDERED: SUCCINYLCHOLINE 200 MG/10 ML VIAL ONE (09:20)
[2016-12-14] MEDS ORDERED: GLYCOPYRROLATE 0.4 MG/2 ML VIAL ONE (09:20)
[2016-12-14] MEDS ORDERED: PROPOFOL 200 MG/20 ML VIAL IV ONE (09:20)
[2016-12-14] MEDS ORDERED: ONDANSETRON 4 MG/2 ML VIAL ONE (09:20)
[2016-12-14] MEDS ORDERED: ROCURONIUM 100 MG/10 ML VIAL IV ONE (09:20)
[2016-12-14] MEDS: NICOTINE 21 MG/24 HR PATCH TRANSDERM PRN (10:33)
--- NOTE | 2016-12-14 12:01 | Anesthesia Post-Op ---
Anesthesia Post OP - Post Ansesthetic Evaluation Patient seen in post op: Yes Resp: within normal limits CV: within normal limits Mental: within normal limits Temp: within normal limits [id number]: within normal limits Nausea and Vomiting: within normal limits Pain: within normal limits
--- NOTE | 2016-12-14 14:16 | Event Note ---
General Surgery Progress Note Chief complaint This patient is a 56-year-old woman admitted following laparotomy with cyst gastrostomy on 12/13/2016 Interval history The patient had an uneventful night last night. Her abdominal muscular spasms improved as the night went on. Her pain is fairly well-controlled this morning. She has minimal NG tube output. She is urinating but has not had a bowel movement yet. Her hemoglobin is stable and white blood cell count is normal. Chemistry is unremarkable. She has not gotten up and walked in the hallway yet. Physical exam The patient is afebrile with normal vital signs this morning. Her blood pressure response to 1 L bolus yesterday. Abdominal exam with expected postoperative tenderness WILMER drain is serosanguineous Heart is regular but tachycardic Labs Reviewed, as above Imaging None new Assessment and plan Continue the NG tube to low intermittent wall suction which ends in the pancreatic pseudocyst cavity. Clear liquids as tolerated Begin ambulating in the hallway We will add Toradol for pain control MiraLAX will be added to assist with bowel regimen Repeat labs tomorrow
[2016-12-14] MEDS ORDERED: KETOROLAC 30 MG/1 ML VIAL IV SCH (14:30)
[2016-12-14] MEDS: POLYETHYLENE GLYCOL POWDER 17 GM PACK PO SCH (15:06)
[2016-12-14] MEDS: diphenhydrAMINE 50 MG/1 ML VIAL IV PRN (16:56)
[2016-12-14] MEDS: DOXEPIN 25 MG CAPSULE PO SCH (20:53)
[2016-12-14] MEDS: amLODIPine 10 MG TABLET PO SCH (20:54)
[2016-12-14] MEDS: QUEtiapine 100 MG TABLET PO SCH (20:55)
[2016-12-14] MEDS: ATORVASTATIN 10 MG TABLET PO SCH (20:55)
[2016-12-14] MEDS: MIRTAZAPINE 30 MG TABLET PO SCH (20:55)
[2016-12-14] MEDS: HYDROmorphone PCA 30 MG/30 ML SYRINGE IV SCH ×2 (21:43→21:47)
[2016-12-15] MEDS: METHOCARBAMOL INJ 500 MG in SODIUM CHLORIDE 0.9% 100 ML IV SCH ×3 (02:30→17:22)
[2016-12-15 06:33] LABS: Basophils % 0.1 % (0.0-0.8); Eosinophils # 0.1 10*3/uL (0.0-0.87); Eosinophils % 1.4 % (0.00-10.9); Hematocrit 25.6 VOL% (35.7-47.0); Hemoglobin 8.5 GM/DL (12.0-16.0); Immature Granulocytes % 0.9 %; Immature Granulocytes Absolute 0.07 #; Lymphocytes % 12.3 % (21.3-54.2); Mean Corpuscular HGB Conc 33.2 GM/DL (32-36); Mean Corpuscular Hemoglobin 32 PG (27-34); Mean Corpuscular Volume 95.2 FL (87-102); Mean Platelet Volume 10.7 FL (9.6-12.0); Monocytes # 0.3 10*3/uL (0.11-0.8); Neutrophils # 6.5 10*3/uL (1.4-7.4); Neutrophils % 81.3 % (38.7-73.9); Platelet Count 240 T/CUMM (130-400); Red Blood Count 2.69 MC/CUMM (3.8-5.5); Red Cell Distribution Width 16.3 % (9.3-17.3)
[2016-12-15] MEDS: ALBUTEROL 2.5 MG/3 ML NEB RESP TX SCH ×2 (07:17→20:26)
[2016-12-15 07:25] LABS: Albumin 2.1 G/DL (3.4-5.0); Bilirubin,Total 0.4 MG/DL (0.2-1.0); Osmolality,Calculated 278.4 MOS/KG (273-304); Potassium 3.3 MMOL/L (3.5-5.1)
[2016-12-15 08:08] LABS: Band Neutrophils 2 % (0-10); Eosinophils 2 % (0-10); Hypochromasia 2+; Lymphocytes 1 % (20-55); Microcytosis Slight; Platelet Estimate Adequate; Segmented Neutrophils 89 % (50-85); Total Cells Counted 100
[2016-12-15] MEDS: THIAMINE 100 MG TABLET PO SCH (09:35)
[2016-12-15] MEDS: ENOXAPARIN 40 MG/0.4 ML SYRINGE SUBCUT SCH (09:36)
[2016-12-15] MEDS: PANTOPRAZOLE 40 MG VIAL IV SCH (09:36)
[2016-12-15] MEDS: FOLIC ACID 1 MG TABLET PO SCH (09:36)
[2016-12-15] MEDS: POLYETHYLENE GLYCOL POWDER 17 GM PACK PO SCH (09:36)
[2016-12-15] MEDS: MULTIVITAMIN (CENTRUM) TABLET PO SCH (09:36)
[2016-12-15] MEDS: DULoxetine 30 MG CAPSULE PO SCH ×2 (09:36→20:00)
[2016-12-15] MEDS: PROPRANOLOL 20 MG TABLET PO SCH ×3 (09:37→21:37)
[2016-12-15] MEDS: LACTATED RINGERS 1,000 ML IV SCH (09:42)
[2016-12-15] MEDS: BECLOMETHASONE 40 MCG/PUFF INHALER 8.7 GM INH SCH ×2 (10:43→20:01)
--- NOTE | 2016-12-15 10:58 | Event Note ---
General Surgery Progress Note Chief complaint This patient is a 56-year-old woman admitted following laparotomy with cyst gastrostomy on 12/13/2016 Interval history No events overnight. Patient is doing well overall. Hemoglobin did drop several grams but the patient received some fluids and was probably dilutional. Patient is urinating well and walking in the hallway. Pain is well controlled. Patient is belching more and not passing gas or having bowel movements yet. She feels bloated today. Physical exam The patient is afebrile with slightly decreased blood pressure this morning but looks well. Abdominal exam with expected postoperative tenderness, however it is more distended and has hypoactive bowel sounds. WILMER drain is serosanguineous Heart is regular Labs Reviewed, as above Imaging None new Assessment and plan Continue low intermittent wall suction NG tube Increase activity The patient is using a lot of Dilaudid and this is certainly contributing to a postoperative ileus type situation we discussed this today try to limit this Continue DVT chemoprophylaxis with Lovenox and Toradol but will repeat hemoglobin at noon. Repeat labs tomorrow
[2016-12-15] MEDS: NICOTINE 21 MG/24 HR PATCH TRANSDERM PRN (11:19)
[2016-12-15] MEDS: DEXT 5% NACL 0.45% KCL 40 MEQ 40 MEQ/1,000 ML BAG IV SCH ×3 (11:58→21:39)
[2016-12-15 12:20] LABS: Basophils % 0.1 % (0.0-0.8); Eosinophils # 0.1 10*3/uL (0.0-0.87); Eosinophils % 1.3 % (0.00-10.9); Hematocrit 26.4 VOL% (35.7-47.0); Hemoglobin 8.7 GM/DL (12.0-16.0); Immature Granulocytes % 0.6 %; Immature Granulocytes Absolute 0.05 #; Lymphocytes # 0.6 10*3/uL (1.4-4.0); Lymphocytes % 8.3 % (21.3-54.2); Mean Corpuscular Hemoglobin 32 PG (27-34); Mean Corpuscular Volume 96.4 FL (87-102); Mean Platelet Volume 10.5 FL (9.6-12.0); Monocytes # 0.7 10*3/uL (0.11-0.8); Monocytes % 8.4 % (1.7-12.7); Neutrophils # 6.3 10*3/uL (1.4-7.4); Neutrophils % 81.3 % (38.7-73.9); Platelet Count 236 T/CUMM (130-400); Red Blood Count 2.74 MC/CUMM (3.8-5.5); Red Cell Distribution Width 16.4 % (9.3-17.3); White Blood Count 7.7 T/CUMM (4-12)
[2016-12-15] MEDS ORDERED: BENZOCAINE/MENTHOL LOZENGE 18/BOX PO PRN (13:56)
[2016-12-15] MEDS: HYDROmorphone PCA 30 MG/30 ML SYRINGE IV SCH (14:14)
[2016-12-15] MEDS: DOXEPIN 25 MG CAPSULE PO SCH (20:01)
[2016-12-15] MEDS: MIRTAZAPINE 30 MG TABLET PO SCH (20:01)
[2016-12-15] MEDS: ATORVASTATIN 10 MG TABLET PO SCH (20:01)
[2016-12-15] MEDS: QUEtiapine 100 MG TABLET PO SCH (20:01)
[2016-12-15] MEDS: amLODIPine 10 MG TABLET PO SCH (21:37)
[2016-12-16] MEDS: METHOCARBAMOL INJ 500 MG in SODIUM CHLORIDE 0.9% 100 ML IV SCH ×3 (02:20→17:58)
[2016-12-16] MEDS: DEXT 5% NACL 0.45% KCL 40 MEQ 40 MEQ/1,000 ML BAG IV SCH ×3 (03:40→19:30)
[2016-12-16] MEDS: ONDANSETRON 4 MG/2 ML VIAL IV PRN (04:42)
[2016-12-16 05:54] LABS: Basophils % 0.1 % (0.0-0.8); Eosinophils # 0.1 10*3/uL (0.0-0.87); Eosinophils % 1.7 % (0.00-10.9); Hematocrit 26.2 VOL% (35.7-47.0); Hemoglobin 8.5 GM/DL (12.0-16.0); Immature Granulocytes % 0.6 %; Immature Granulocytes Absolute 0.04 #; Lymphocytes # 0.6 10*3/uL (1.4-4.0); Lymphocytes % 8.9 % (21.3-54.2); Mean Corpuscular HGB Conc 32.4 GM/DL (32-36); Mean Corpuscular Hemoglobin 32 PG (27-34); Mean Corpuscular Volume 98.5 FL (87-102); Mean Platelet Volume 10.7 FL (9.6-12.0); Monocytes # 0.6 10*3/uL (0.11-0.8); Monocytes % 8.7 % (1.7-12.7); Neutrophils # 5.8 10*3/uL (1.4-7.4); Platelet Count 232 T/CUMM (130-400); Red Blood Count 2.66 MC/CUMM (3.8-5.5); Red Cell Distribution Width 16.5 % (9.3-17.3); White Blood Count 7.2 T/CUMM (4-12)
[2016-12-16 06:11] LABS: Calcium 7.9 MG/DL (8.5-10.1); Osmolality,Calculated 279.3 MOS/KG (273-304)
[2016-12-16 06:32] LABS: Band Neutrophils 4 % (0-10); Eosinophils 2 % (0-10); Lymphocytes 9 % (20-55); Metamyelocytes 1 %; Platelet Estimate Normal; Segmented Neutrophils 75 % (50-85); Total Cells Counted 100
[2016-12-16] MEDS: ALBUTEROL 2.5 MG/3 ML NEB RESP TX SCH ×2 (06:47→19:15)
--- NOTE | 2016-12-16 09:04 | Event Note ---
General Surgery Progress Note Chief complaint This patient is a 56-year-old woman admitted following laparotomy with cyst gastrostomy on 12/13/2016 Interval history Patient is doing better overall. She is walking in the hallway some. Her abdomen is less distended. Still no flatus or bowel movements yet. NG tube output was about 300 cc in the past 12 hours. Labs are stable this morning. Physical exam Afebrile with normal vital signs Abdominal exam with expected postoperative tenderness, less distended but still hypoactive bowel sounds WILMER drain is serosanguineous Heart is regular with no murmur Labs Reviewed, stable Imaging None new Assessment and plan Continue low intermittent wall suction NG tube Continue walking at home Wean narcotic pain medication Continue Lovenox DVT chemoprophylaxis Plan to remove NG tube tomorrow Await return of bowel function
[2016-12-16] MEDS: POLYETHYLENE GLYCOL POWDER 17 GM PACK PO SCH ×2 (09:42→17:57)
[2016-12-16] MEDS: NICOTINE 21 MG/24 HR PATCH TRANSDERM PRN (09:49)
[2016-12-16] MEDS: ENOXAPARIN 40 MG/0.4 ML SYRINGE SUBCUT SCH (09:50)
[2016-12-16] MEDS: THIAMINE 100 MG TABLET PO SCH (09:51)
[2016-12-16] MEDS: DULoxetine 30 MG CAPSULE PO SCH ×2 (09:51→20:52)
[2016-12-16] MEDS: tiZANidine 4 MG TABLET PO PRN (09:51)
[2016-12-16] MEDS: PROPRANOLOL 20 MG TABLET PO SCH ×3 (09:51→21:30)
[2016-12-16] MEDS: LORATADINE 10 MG TABLET PO PRN (09:52)
[2016-12-16] MEDS: diphenhydrAMINE 50 MG/1 ML VIAL IV PRN ×2 (09:52→17:57)
[2016-12-16] MEDS: MULTIVITAMIN (CENTRUM) TABLET PO SCH (09:52)
[2016-12-16] MEDS: FOLIC ACID 1 MG TABLET PO SCH (09:52)
[2016-12-16] MEDS: PANTOPRAZOLE 40 MG VIAL IV SCH (09:53)
[2016-12-16] MEDS: BECLOMETHASONE 40 MCG/PUFF INHALER 8.7 GM INH SCH ×2 (16:41→20:53)
[2016-12-16] MEDS: HYDROmorphone PCA 30 MG/30 ML SYRINGE IV SCH (16:43)
[2016-12-16] MEDS: DOXEPIN 25 MG CAPSULE PO SCH (20:51)
[2016-12-16] MEDS: MIRTAZAPINE 30 MG TABLET PO SCH (20:51)
[2016-12-16] MEDS: ATORVASTATIN 10 MG TABLET PO SCH (20:51)
[2016-12-16] MEDS: QUEtiapine 100 MG TABLET PO SCH (20:52)
[2016-12-16] MEDS: amLODIPine 10 MG TABLET PO SCH (21:30)
[2016-12-17] MEDS: diphenhydrAMINE 50 MG/1 ML VIAL IV PRN ×2 (01:24→09:10)
[2016-12-17] MEDS: METHOCARBAMOL INJ 500 MG in SODIUM CHLORIDE 0.9% 100 ML IV SCH ×3 (01:29→17:44)
[2016-12-17] MEDS: DEXT 5% NACL 0.45% KCL 40 MEQ 40 MEQ/1,000 ML BAG IV SCH ×3 (03:46→21:32)
[2016-12-17 07:13] LABS: Calcium 7.9 MG/DL (8.5-10.1)
[2016-12-17 07:14] LABS: Magnesium 1.9 MG/DL (1.8-2.4); Osmolality,Calculated 276.4 MOS/KG (273-304)
[2016-12-17] MEDS: ALBUTEROL 2.5 MG/3 ML NEB RESP TX SCH ×2 (07:30→20:06)
[2016-12-17] MEDS: PROPRANOLOL 20 MG TABLET PO SCH ×3 (08:56→20:50)
[2016-12-17] MEDS: POLYETHYLENE GLYCOL POWDER 17 GM PACK PO SCH (08:56)
[2016-12-17] MEDS: MULTIVITAMIN (CENTRUM) TABLET PO SCH (08:56)
[2016-12-17] MEDS: FOLIC ACID 1 MG TABLET PO SCH (08:56)
[2016-12-17] MEDS: THIAMINE 100 MG TABLET PO SCH (08:56)
[2016-12-17] MEDS: DULoxetine 30 MG CAPSULE PO SCH ×2 (08:56→20:51)
[2016-12-17] MEDS: BECLOMETHASONE 40 MCG/PUFF INHALER 8.7 GM INH SCH ×2 (08:57→21:02)
[2016-12-17] MEDS: PANTOPRAZOLE 40 MG VIAL IV SCH (09:00)
[2016-12-17] MEDS: ENOXAPARIN 40 MG/0.4 ML SYRINGE SUBCUT SCH (09:02)
[2016-12-17] MEDS ORDERED: HYDROmorphone 2 MG/1 ML VIAL IV PRN (09:28)
[2016-12-17] MEDS: CLINDAMYCIN INJ 300 MG in PREMIX 1 EACH IV SCH ×3 (10:27→21:27)
[2016-12-17] MEDS: ONDANSETRON 4 MG/2 ML VIAL IV PRN (19:50)
[2016-12-17] MEDS: amLODIPine 10 MG TABLET PO SCH (20:50)
[2016-12-17] MEDS: DOXEPIN 25 MG CAPSULE PO SCH (20:51)
[2016-12-17] MEDS: ATORVASTATIN 10 MG TABLET PO SCH (20:52)
[2016-12-17] MEDS: MIRTAZAPINE 30 MG TABLET PO SCH (20:52)
[2016-12-17] MEDS: QUEtiapine 100 MG TABLET PO SCH (20:52)
--- NOTE | 2016-12-17 21:07 | Event Note ---
General Surgery Progress Note Chief complaint This patient is a 56-year-old woman admitted following laparotomy with cyst gastrostomy on 12/13/2016 Interval history No events overnight. Patient is passing gas now. NG tube has minimal output. Physical exam Afebrile with normal vital signs Abdominal exam with expected postoperative tenderness, less distended but still hypoactive bowel sounds, there is some erythema extending outside of the staple line but it is minimal there is no drainage from the wound. 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
[2016-12-17] MEDS: HYDROmorphone 2 MG/1 ML VIAL IV PRN (21:46)
[2016-12-18] MEDS: METHOCARBAMOL INJ 500 MG in SODIUM CHLORIDE 0.9% 100 ML IV SCH ×3 (02:00→17:37)
[2016-12-18] MEDS: HYDROmorphone 2 MG/1 ML VIAL IV PRN ×5 (02:07→12:59)
[2016-12-18] MEDS: CLINDAMYCIN INJ 300 MG in PREMIX 1 EACH IV SCH ×4 (03:51→21:30)
[2016-12-18] MEDS: DEXT 5% NACL 0.45% KCL 40 MEQ 40 MEQ/1,000 ML BAG IV SCH ×2 (03:57→22:41)
[2016-12-18 06:34] LABS: Calcium 7.8 MG/DL (8.5-10.1); Magnesium 1.9 MG/DL (1.8-2.4); Osmolality,Calculated 282.1 MOS/KG (273-304); Potassium 4.6 MMOL/L (3.5-5.1)
[2016-12-18] MEDS ORDERED: LACTATED RINGERS 2,000 ML IV ONE (06:38)
[2016-12-18] MEDS ORDERED: LACTATED RINGERS 1,000 ML IV ONE (06:59)
[2016-12-18] MEDS: ALBUTEROL 2.5 MG/3 ML NEB RESP TX SCH ×2 (07:40→20:15)
[2016-12-18] MEDS: FOLIC ACID 1 MG TABLET PO SCH (08:31)
[2016-12-18] MEDS: DULoxetine 30 MG CAPSULE PO SCH ×2 (08:31→21:04)
[2016-12-18] MEDS: POLYETHYLENE GLYCOL POWDER 17 GM PACK PO SCH (08:31)
[2016-12-18] MEDS: MULTIVITAMIN (CENTRUM) TABLET PO SCH (08:31)
[2016-12-18] MEDS: PROPRANOLOL 20 MG TABLET PO SCH ×3 (08:31→20:47)
[2016-12-18] MEDS: PANTOPRAZOLE 40 MG VIAL IV SCH (08:32)
[2016-12-18] MEDS: THIAMINE 100 MG TABLET PO SCH (08:32)
[2016-12-18] MEDS: BECLOMETHASONE 40 MCG/PUFF INHALER 8.7 GM INH SCH ×2 (08:32→20:49)
[2016-12-18] MEDS: metroNIDAZOLE INJ 500 MG in PREMIX 1 EACH IV SCH ×3 (08:53→22:55)
[2016-12-18] MEDS: ENOXAPARIN 40 MG/0.4 ML SYRINGE SUBCUT SCH (08:54)
[2016-12-18] MEDS: CIPROFLOXACIN INJ 400 MG in PREMIX 1 EACH IV SCH ×2 (09:56→19:25)
--- NOTE | 2016-12-18 13:14 | CT Report ---
CT of the abdomen and pelvis with intravenous and oral contrast. Axial images were obtained with sagittal and coronal reconstructions. Comparison is made to a previous exam of November 20, 2016. 100 cc Omni 350. The heart is enlarged. There is no pericardial effusion. A moderate left pleural effusion and left basilar atelectasis have developed. There is minimal pleural effusion on the right, and small cystic areas are noted along the pleural surface posteriorly. Groundglass infiltrates have developed in the right middle lobe, mild in severity. A ventral abdominal incision site is still patent. There is a small umbilical hernia containing only fat. Surrounding the incision, stranding is seen within the fat, without an abscess collection noted. There is marked fatty infiltration of the liver. The liver is enlarged with a length of 23 cm The gallbladder is distended. Adjacent conforming to the shape of the left lobe of the liver, there is a fluid collection present, which lies superior to the surgical drain. Inferior to the right lobe of the liver, there is a fluid and air collection measuring 3.1 cm. The gastric contour is normal. A small fluid collection projects adjacent to the cardiac region of the stomach, measuring 12 mm. Along the left lower paracolic gutter anteriorly, there is a 3 cm fluid collection which may demonstrate early loculation. The stomach is not distended. The pancreas is small. Cystic area at the body of the pancreas is no longer present. Stranding is seen within the mesenteric fat. There is a small amount of free fluid within the mesentery, right paracolic gutter, and pelvis. The loops of small intestine do not appear obstructed. There are dilated loops without wall thickening seen. The terminal ileum presents a normal appearance. The colon is not dilated. In the central abdomen there is slight colonic wall thickening, new the areas of inflammation. Significant fecal material is seen within the rectal vault. The pelvic organs have been removed. There is no pelvic adenopathy. There is calcific plaque present within a normal caliber abdominal aorta. No adrenal abnormality. No renal abnormality. The spleen is normal in size. Stable osseous structures. Impression: 1. Development of left basilar atelectasis, and a moderate left pleural effusion. 2. Small right pleural effusion, with small bubbles of air posteriorly, probably representing small cystic areas along the lung surface. 3. Hepatomegaly with severe fatty liver. 4. Postsurgical changes of the pancreas. 5. Surgical drain in the upper abdomen. Superior to the surgical drain, there is one fluid collection conforming to the left lobe of the liver. Just inferior to the left lobe of the liver, between it and the stomach and transverse colon, there is a 3 cm fluid collection which contains a air and may be infected. Small organized fluid collection along the anterior left paracolic gutter inferiorly. 6. Small amount of free fluid in the pelvis. The CT exam was performed using one or more of the following dose reduction techniques: Automated exposure control, adjustment of the mA and/or kV according to patient size, or use of iterative reconstruction technique. PROCEDURE INTERPRETED AT [facility] DEPARTMENT OF RADIOLOGY Final Report Signed by: Dr. Alanna Ovalle
[2016-12-18] MEDS: ONDANSETRON 4 MG/2 ML VIAL IV PRN ×2 (14:55→20:58)
[2016-12-18] MEDS ORDERED: NALOXONE 0.4 MG/ML VIAL IV PRN (15:02)
[2016-12-18] MEDS: HYDROmorphone PCA 30 MG/30 ML SYRINGE IV SCH (15:30)
--- NOTE | 2016-12-18 19:45 | Event Note ---
General Surgery Progress Note Chief complaint This patient is a 56-year-old woman admitted following laparotomy with cyst gastrostomy on 12/13/2016 Interval history The patient developed worsening abdominal pain yesterday and this morning. She did pass gas and have a bowel movement yesterday. Physical exam Afebrile with normal vital signs Abdominal exam reveals worsening erythema and fluctuance under the incision. Brigida were removed and there is a large amount of foul-smelling fluid that was drained. Cultures were sent from this and the wound was packed and the patient was placed on broad-spectrum antibiotics. WILMER drain is serosanguinous Heart is regular with no murmur Labs Reviewed, stable Imaging CT abdomen and pelvis shows no evidence of enteric leak. The cyst has been drained completely in the pancreas. There is minimal residual fluid under the incision but nothing that looks like it would require additional drainage with percutaneous catheters Assessment and plan Continue antibiotics and wound care for midline wound infection Follow-up cultures Clear liquid diet Repeat labs tomorrow
[2016-12-18] MEDS: amLODIPine 10 MG TABLET PO SCH (20:48)
[2016-12-18] MEDS: MIRTAZAPINE 30 MG TABLET PO SCH (21:06)
[2016-12-18] MEDS: ATORVASTATIN 10 MG TABLET PO SCH (21:06)
[2016-12-18] MEDS: QUEtiapine 100 MG TABLET PO SCH (21:06)
[2016-12-18] MEDS: DOXEPIN 25 MG CAPSULE PO SCH (21:06)
[2016-12-19] MEDS: METHOCARBAMOL INJ 500 MG in SODIUM CHLORIDE 0.9% 100 ML IV SCH ×3 (02:18→19:14)
[2016-12-19] MEDS: CLINDAMYCIN INJ 300 MG in PREMIX 1 EACH IV SCH ×4 (03:41→21:45)
[2016-12-19] MEDS: metroNIDAZOLE INJ 500 MG in PREMIX 1 EACH IV SCH ×3 (06:35→23:02)
[2016-12-19] MEDS: ONDANSETRON 4 MG/2 ML VIAL IV PRN ×3 (06:36→18:09)
[2016-12-19] MEDS: ALBUTEROL 2.5 MG/3 ML NEB RESP TX SCH ×2 (06:51→19:39)
[2016-12-19 07:27] LABS: Basophils % 0.2 % (0.0-0.8); Eosinophils # 0.1 10*3/uL (0.0-0.87); Eosinophils % 0.8 % (0.00-10.9); Hematocrit 24.7 VOL% (35.7-47.0); Hemoglobin 8.1 GM/DL (12.0-16.0); Immature Granulocytes % 0.9 %; Immature Granulocytes Absolute 0.08 #; Lymphocytes # 0.6 10*3/uL (1.4-4.0); Mean Corpuscular HGB Conc 32.8 GM/DL (32-36); Mean Corpuscular Hemoglobin 31 PG (27-34); Mean Corpuscular Volume 93.6 FL (87-102); Mean Platelet Volume 10.7 FL (9.6-12.0); Monocytes # 0.7 10*3/uL (0.11-0.8); Monocytes % 8.4 % (1.7-12.7); NRBC # 0.02 10*3/uL; Neutrophils # 7.3 10*3/uL (1.4-7.4); Neutrophils % 82.7 % (38.7-73.9); Platelet Count 318 T/CUMM (130-400); Red Blood Count 2.64 MC/CUMM (3.8-5.5); Red Cell Distribution Width 16.7 % (9.3-17.3); White Blood Count 8.8 T/CUMM (4-12)
--- NOTE | 2016-12-19 07:47 | Event Note ---
General Surgery Progress Note Chief complaint This patient is a 56-year-old woman admitted following laparotomy with cyst gastrostomy on 12/13/2016 Interval history The patient had a wound infection that was cultured yesterday. She says she feels about the same today. No fevers. White blood cell count is normal. Hemoglobin is stable. Physical exam Patient is afebrile with normal vital signs Her chest is clear Heart is regular Her abdominal exam reveals that the fascial dehiscence has worsened. There is no evisceration. There is minimal additional fluid but there was a lot of drainage overnight. Labs Reviewed, stable Imaging CT scan yesterday reviewed again. No leak or significant abscess but there is some fluid in the left lobe of the liver that I think probably came out through the incision overnight. Assessment and plan Continue antibiotics and follow-up wound culture Wound VAC placement today
[2016-12-19] MEDS: CIPROFLOXACIN INJ 400 MG in PREMIX 1 EACH IV SCH ×2 (07:48→20:48)
[2016-12-19 07:51] LABS: Band Neutrophils 5 % (0-10); Lymphocytes 6 % (20-55); Segmented Neutrophils 85 % (50-85); Total Cells Counted 100
[2016-12-19 07:52] LABS: Anisocytosis 1+; Hypochromasia 1+; Microcytosis 1+
[2016-12-19 08:03] LABS: Calcium 7.5 MG/DL (8.5-10.1); Magnesium 1.8 MG/DL (1.8-2.4); Osmolality,Calculated 276.4 MOS/KG (273-304)
[2016-12-19] MEDS: PROPRANOLOL 20 MG TABLET PO SCH ×3 (08:05→20:20)
[2016-12-19] MEDS: POLYETHYLENE GLYCOL POWDER 17 GM PACK PO SCH (08:06)
[2016-12-19] MEDS: PANTOPRAZOLE 40 MG VIAL IV SCH (08:27)
[2016-12-19] MEDS: ENOXAPARIN 40 MG/0.4 ML SYRINGE SUBCUT SCH (08:29)
[2016-12-19] MEDS: DULoxetine 30 MG CAPSULE PO SCH ×2 (08:36→22:04)
[2016-12-19] MEDS: MULTIVITAMIN (CENTRUM) TABLET PO SCH (08:36)
[2016-12-19] MEDS: FOLIC ACID 1 MG TABLET PO SCH (08:37)
[2016-12-19] MEDS: THIAMINE 100 MG TABLET PO SCH (08:38)
[2016-12-19] MEDS: BECLOMETHASONE 40 MCG/PUFF INHALER 8.7 GM INH SCH ×2 (08:38→20:20)
[2016-12-19] MEDS: DEXT 5% NACL 0.45% KCL 40 MEQ 40 MEQ/1,000 ML BAG IV SCH ×4 (10:55→21:29)
[2016-12-19] MEDS: HYDROmorphone PCA 30 MG/30 ML SYRINGE IV SCH (18:39)
[2016-12-19] MEDS: amLODIPine 10 MG TABLET PO SCH (20:20)
[2016-12-19] MEDS: diphenhydrAMINE 50 MG/1 ML VIAL IV PRN (21:20)
[2016-12-19] MEDS: DOXEPIN 25 MG CAPSULE PO SCH (22:05)
[2016-12-19] MEDS: MIRTAZAPINE 30 MG TABLET PO SCH (22:05)
[2016-12-19] MEDS: ATORVASTATIN 10 MG TABLET PO SCH (22:05)
[2016-12-19] MEDS: QUEtiapine 100 MG TABLET PO SCH (22:05)
[2016-12-20] MEDS: ONDANSETRON 4 MG/2 ML VIAL IV PRN ×2 (02:16→06:21)
[2016-12-20] MEDS: diphenhydrAMINE 50 MG/1 ML VIAL IV PRN ×2 (02:19→09:36)
[2016-12-20] MEDS: METHOCARBAMOL INJ 500 MG in SODIUM CHLORIDE 0.9% 100 ML IV SCH ×3 (02:24→18:09)
[2016-12-20] MEDS: CLINDAMYCIN INJ 300 MG in PREMIX 1 EACH IV SCH ×4 (03:54→22:27)
[2016-12-20 05:02] LABS: Basophils % 0.1 % (0.0-0.8); Eosinophils # 0.1 10*3/uL (0.0-0.87); Eosinophils % 0.6 % (0.00-10.9); Hematocrit 26.8 VOL% (35.7-47.0); Hemoglobin 8.8 GM/DL (12.0-16.0); Immature Granulocytes % 1.4 %; Immature Granulocytes Absolute 0.15 #; Lymphocytes # 0.6 10*3/uL (1.4-4.0); Lymphocytes % 5.8 % (21.3-54.2); Mean Corpuscular HGB Conc 32.8 GM/DL (32-36); Mean Corpuscular Hemoglobin 31 PG (27-34); Mean Corpuscular Volume 93.7 FL (87-102); Monocytes # 0.8 10*3/uL (0.11-0.8); Monocytes % 7.7 % (1.7-12.7); NRBC # 0.02 10*3/uL; Neutrophils # 8.9 10*3/uL (1.4-7.4); Neutrophils % 84.4 % (38.7-73.9); Platelet Count 421 T/CUMM (130-400); Red Blood Count 2.86 MC/CUMM (3.8-5.5); Red Cell Distribution Width 17.1 % (9.3-17.3); White Blood Count 10.5 T/CUMM (4-12)
[2016-12-20 05:38] LABS: Calcium 7.4 MG/DL (8.5-10.1); Magnesium 2.1 MG/DL (1.8-2.4); Osmolality,Calculated 276.4 MOS/KG (273-304); Potassium 4.2 MMOL/L (3.5-5.1)
[2016-12-20 06:11] LABS: Band Neutrophils 1 % (0-10); Hypochromasia 1+; Lymphocytes 5 % (20-55); Microcytosis 1+; Platelet Estimate Increased; Segmented Neutrophils 85 % (50-85); Total Cells Counted 100
[2016-12-20] MEDS: CIPROFLOXACIN INJ 400 MG in PREMIX 1 EACH IV SCH (06:16)
[2016-12-20] MEDS: NICOTINE 21 MG/24 HR PATCH TRANSDERM PRN (06:18)
[2016-12-20] MEDS: ALBUTEROL 2.5 MG/3 ML NEB RESP TX SCH ×2 (07:12→19:42)
[2016-12-20] MEDS ORDERED: PROMETHAZINE 25 MG/1 ML VIAL IM ONE (09:19)
[2016-12-20] MEDS: metroNIDAZOLE INJ 500 MG in PREMIX 1 EACH IV SCH ×2 (09:36→17:59)
[2016-12-20] MEDS: PANTOPRAZOLE 40 MG VIAL IV SCH (09:36)
[2016-12-20] MEDS ORDERED: LORazepam 2 MG/1 ML VIAL IV ONE ×3 (10:08→23:19)
[2016-12-20] MEDS ORDERED: PHENOL 1.4% THROAT SPRAY 177 ML BOTTLE PO PRN (10:22)
[2016-12-20] MEDS: DEXT 5% NACL 0.45% KCL 40 MEQ 40 MEQ/1,000 ML BAG IV SCH ×2 (10:25→11:37)
[2016-12-20] MEDS: MULTIVITAMIN (CENTRUM) TABLET PO SCH (10:25)
[2016-12-20] MEDS: BECLOMETHASONE 40 MCG/PUFF INHALER 8.7 GM INH SCH ×2 (10:26→21:55)
[2016-12-20] MEDS: PROPRANOLOL 20 MG TABLET PO SCH ×3 (10:26→21:55)
[2016-12-20] MEDS: ENOXAPARIN 40 MG/0.4 ML SYRINGE SUBCUT SCH (10:26)
[2016-12-20] MEDS: THIAMINE 100 MG TABLET PO SCH (10:26)
[2016-12-20] MEDS: DULoxetine 30 MG CAPSULE PO SCH ×2 (10:26→21:55)
[2016-12-20] MEDS: POLYETHYLENE GLYCOL POWDER 17 GM PACK PO SCH (10:26)
[2016-12-20] MEDS: FOLIC ACID 1 MG TABLET PO SCH (10:26)
--- NOTE | 2016-12-20 10:35 | Event Note ---
General Surgery Progress Note Chief complaint This patient is a 56-year-old woman admitted following laparotomy with cyst gastrostomy on 12/13/2016 Interval history Patient developed nausea and bilious emesis overnight. She is still passing gas and having diarrhea. Her pain overall is well controlled. No fevers. Labs are normal this morning. Urine output is good. Physical exam Patient is afebrile with normal vital signs Her chest is clear Heart is regular Wound VAC in place with minimal drainage. No erythema around incision any longer. Bowel sounds are hypoactive. WILMER drain is serosanguineous. Labs Reviewed gram-positive cocci on culture Imaging Obtain PICC line and start TPN NG tube for ileus to low intermittent wall suction Continue DVT chemoprophylaxis Continue antibiotics and follow-up cultures Change wound VAC tomorrow
--- NOTE | 2016-12-20 10:51 | XRay Report ---
Exam: XR chest 1V portable Indication: NG tube placement Comparison study: 12/10/2016 Findings: Esophagogastric tube noted within the stomach with the tip directed rightward. Moderate-severe gaseous distention of small bowel is partially imaged in the upper abdomen. Impression: Esophagogastric tube in the stomach PROCEDURE INTERPRETED AT [facility] DEPARTMENT OF RADIOLOGY Final Report Signed by: Al Rice
[2016-12-20] MEDS ORDERED: DEXTROSE 50% 25 GM/50 ML VIAL IV PRN (11:52)
[2016-12-20] MEDS ORDERED: GLUCAGON 1 MG VIAL IM PRN (11:52)
--- NOTE | 2016-12-20 14:03 | XRay Report ---
Portable chest. Indication: Nasogastric tube placement. The distal tip of the nasogastric tube projects over the antrum of the stomach. The heart is borderline enlarged. Linear atelectasis in the left lung base. Infiltrates bilaterally consistent with pulmonary edema. Gaseous distention of bowel. Impression: Satisfactory nasogastric tube placement. PROCEDURE INTERPRETED AT [facility] DEPARTMENT OF RADIOLOGY Final Report Signed by: Dr. Alanna Ovalle
[2016-12-20] MEDS: INSULIN LISPRO 100 UNIT/ML SUBCUT SCH ×2 (15:09→18:08)
--- NOTE | 2016-12-20 15:13 | Post Interventional Procedure ---
Pre-op diagnosis: TPN req for acute on chronic pancreatitis Post-op diagnosis: same Procedure: PICC LUE Flouroscopy: 0.1 min Radiologist: Dario Edwards Anesthesia: local Specimens: none sent Estimated blood loss: none Complications: none Condition: stable Assessment and Plan - Time spent with patient Time spent with patient: Less than 30 minutes
--- NOTE | 2016-12-20 16:23 | Interventional Radiology Rpt ---
IR PICC line insertion, US guide vascular access Indication: TPN requirement. Chronic pancreatitis. Recent pseudocyst marsupialization. PICC LINE Description: A formal timeout was performed. Maximum sterile barrier technique was used. Sonographic evaluation of the left upper extremity demonstrates patent and compressible basilic vein. The upper arm was prepped and draped in sterile fashion. 3 cc 1% lidocaine was administered subcutaneously. Under sonographic guidance, a micropuncture needle was advanced into the vein. A captured sonographic image documents the position of the needle. Needle was exchanged over a wire for a peel-away sheath. A dual lumen power PICC, cut to 38 cm, was advanced over the wire until the tip was at the RA-SVC junction. The position of the catheter was confirmed with fluoroscopic guidance and an image stored in PACS. The wire and sheath were removed. Both ports of the PICC were aspirated and flushed with heparinized saline. The device was secured with a StatLock. Fluoroscopy: 0.1 minute. Impression: PICC line ready for immediate use. Routine catheter care. PROCEDURE INTERPRETED AT [facility] DEPARTMENT OF RADIOLOGY Final Report Signed by: Dario Edwards M.D.
[2016-12-20] MEDS: FAT EMULSION 20% 250 ML IV SCH (16:34)
[2016-12-20] MEDS: HYDROmorphone PCA 30 MG/30 ML SYRINGE IV SCH (16:40)
[2016-12-20] MEDS ORDERED: MULTIVITAMIN IV SCH (17:00)
[2016-12-20] MEDS ORDERED: [UNRECOGNIZED DRUG - OTHER] IV SCH (17:00)
[2016-12-20] MEDS ORDERED: TRACE ELEMENTS IV SCH (17:00)
[2016-12-20] MEDS ORDERED: ELECTROLYTE IV SCH (17:00)
[2016-12-20] MEDS: LORazepam 2 MG/1 ML VIAL IV PRN ×2 (17:15→22:28)
[2016-12-20] MEDS ORDERED: HALOPERIDOL 5 MG/ML AMP IV ONE (18:13)
--- NOTE | 2016-12-20 20:01 | XRay Report ---
Chest for nasogastric tube placement. The distal tip of the nasogastric tube projects over the antrum of the stomach. PROCEDURE INTERPRETED AT [facility] DEPARTMENT OF RADIOLOGY Final Report Signed by: Dr. Alanna Ovalle
[2016-12-20] MEDS ORDERED: HALOPERIDOL 5 MG/ML AMP IV PRN (21:17)
[2016-12-20] MEDS: MIRTAZAPINE 30 MG TABLET PO SCH (21:55)
[2016-12-20] MEDS: ATORVASTATIN 10 MG TABLET PO SCH (21:55)
[2016-12-20] MEDS: QUEtiapine 100 MG TABLET PO SCH (21:55)
[2016-12-20] MEDS: amLODIPine 10 MG TABLET PO SCH (21:55)
[2016-12-20] MEDS: DOXEPIN 25 MG CAPSULE PO SCH (21:56)
[2016-12-21] MEDS: METHOCARBAMOL INJ 500 MG in SODIUM CHLORIDE 0.9% 100 ML IV SCH ×3 (02:15→18:34)
[2016-12-21] MEDS: INSULIN LISPRO 100 UNIT/ML SUBCUT SCH ×4 (03:45→18:23)
[2016-12-21] MEDS: CLINDAMYCIN INJ 300 MG in PREMIX 1 EACH IV SCH ×3 (04:11→18:31)
[2016-12-21] MEDS ORDERED: DIAZEPAM 10 MG/2 ML SYRINGE IV ONE (05:21)
--- NOTE | 2016-12-21 05:33 | Hospitalist Consult Note ---
History of Present Illness - Data of Consult Consult date: 12/21/16 Requesting Physician: Lux Perez (altered mental status) - Consult Narrative Reason for consult: altered mental status History of present illness: Ms. Crum is a 56 year old female who was admitted for an enlarging symptomatic pancreatic pseudocyst s/p laparotomy with cyst gastrostomy, 12/13/16. She has a wound vac in place. Wound culture is positive for MRSE, sensitive to vancomycin. The medicine service was consulted for altered mental status. Per nursing staff , patient had been confused all day on yesterday. She has been receiving ativan and haldol; however, the medications are not helpful. Patient has a history of ETOH abuse as well acute on chronic pancreatitis. Patient is very confused, restless, and agitated. She denies any SOB or pain. Speech is slurred and incomprehensible. is at bedside and states that patient had similar symptoms in 2011 but her confusion is worst now compared to prior. He states that the cause of her confusion was unknown. CC: Lux Perez MD - Home Medications and Allergies Home Medications: Home Medications Medication Instructions Recorded Confirmed Type Atorvastatin [Lipitor] 10 mg PO QPM 05/14/16 12/13/16 History Duloxetine HCl [Cymbalta] 120 mg PO DAILY 05/14/16 12/13/16 History Loratadine [Claritin] 10 mg PO DAILY PRN 05/14/16 12/13/16 History Mirtazapine 30 mg PO BEDTIME 05/14/16 12/13/16 History QUEtiapine [SEROquel] 100 mg PO BEDTIME 05/14/16 12/13/16 History Tizanidine HCl 2 mg PO TID PRN 05/14/16 12/13/16 History Albuterol Sulfate [Proair HFA] 2 puffs PO BID PRN 09/26/16 12/13/16 History Beclomethasone 40 Mcg Inhaler 2 puffs PO BID 09/26/16 12/13/16 History [Qvar 40 Mcg] Doxepin [SINEquan] 100 mg PO BEDTIME 09/26/16 12/13/16 History Fluticasone 50 Mcg Nasal [place] 1 spray BOTH NARES DAILY PRN 09/26/16 12/13/16 History [Flonase Nasal [place]] Propranolol Tab [Inderal Tab] 20 mg PO TID 09/26/16 12/13/16 History hydroCHLOROthiazide 12.5 mg PO QAM 09/26/16 12/13/16 History [Hydrochlorothiazide] Nicotine 21 mg/24 Hr Patch 1 patch TRANSDERM DAILY PRN #0 10/03/16 12/13/16 Rx [Nicoderm CQ 21 mg/24 hr Patch] patch amLODIPine [Norvasc] 10 mg PO QPM tablet 10/03/16 12/13/16 Rx Pantoprazole Tab [Protonix Tab] 40 mg PO QAM 10/07/16 12/13/16 History Folic Acid Tab 1 mg PO DAILY tablet 10/12/16 12/13/16 Rx Multivitamin (Centrum) [Centrum 1 tablet PO DAILY tablet 10/12/16 12/13/16 Rx Tab] Thiamine Tab [Vitamin B1 Tab] 100 mg PO DAILY tablet 10/12/16 12/13/16 Rx HYDROcodone/ACETAMIN 10-325 [Arabi 1 tablet PO Q4-6H PRN 10/23/16 12/13/16 History 10-325] Ondansetron Tab [Zofran Tab] 4 mg PO Q4H PRN 12/13/16 12/13/16 History Allergies/Adverse Reactions: Allergies Allergy/AdvReac Type Severity Reaction Status Date / Time Penicillins Allergy Severe HIVES Verified 10/23/16 19:21 Sulfa (Sulfonamide Allergy Severe HIVES Verified 10/23/16 19:21 Antibiotics) Erythromycin Base Allergy Intermediate HIVES Verified 10/23/16 19:21 Medical,Surgical,& Family Hx - Medical History Cardio: History of: Hypertension (medication) Psychological: History of: Anxiety Disorders, Depression Neurology: No history of: Seizures Endocrine: History of: Dyslipidemia Rheumatology: History of;: Fibromyalgia Respiratory: History of: Asthma, Bronchitis, Obstructive Sleep Apnea (Does not wear C-pap), Pneumonia Genitourinary: History of: Kidney Stones Gastrointestinal: History of: GERD (medication), Hemorrhoids, Pancreatitis ( pancreatic cyst) Musculoskeletal: History of: Back/Neck Problems (Neck) Hematology: No history of: Blood Transfusion Reaction Reproductive: No history of: Abnormal Pap Smear, Breast Cancer Other: No history of: Anesthesia Reactions - Surgical History Cardiac Surgeries: Patient Denies: Cardiac Catheterization Thoracic Surgeries: Patient denies;: Organ Transplant, Lobectomy Neurologic Surgeries: Patient denies: Neurologic Surgery Abdominal Surgeries: Surgical HX of: Abdominal Surgery (open cyst gastrostomy Dr. Perez), Appendectomy, Colonoscopy, EGD Patient denies: Cholecystectomy, Gastric Bypass Surgery, Hernia Repair Reproductive Surgeries: Surgical HX of;: Gynecologic Surgery, Hysterectomy Patient denies;: Breast Surgery, Section Orthopedic Surgeries: Surgical HX of;: Orthopedic Surgery (LEFT shoulder rotator cuff repair) - Family History Family History: Reports;: Family Cancer, Family Hypertension Denies;: Family Anesthesia Reaction, Family Diabetes, Family Heart Disease, Family Psychiatric Problems, Family Stroke - Social History Smoking Status: Current every day smoker Frequency of Alcohol Use: Rarely Type of Drug Use: None ROS unobtainable: due to mental status Exam - Constitutional Vitals: Period Temp Pulse Resp BP Sys/Rodriguez Pulse Ox Last 24 Hr 96.6 F-98.7 F 91-119 17-22 108-151/68-91 91-98 General appearance: severe distress (confused; knows name; thinks she is at home in bed; thinks is 2098; slurred speech; inability to focus; easily distracted) - Head Head exam: Present: normal inspection, normocephalic - Eye Eye exam: Absent: conjunctival injection, scleral icterus Pupils: Present: DORIS - ENT ENT exam: Present: other (very dry oral mucosa) - Respiratory Respiratory exam: Present: clear to auscultation bilaterally - Cardiovascular Cardiovascular exam: Present: regular rate and rhythm, tachycardia - GI/Abdominal GI/Abdominal exam: Present: hypoactive bowel sounds, soft. Absent: tenderness ( wound vac in place and area is free of discharge/erythema) - Extremities Exam Extremities exam: Present: normal inspection. Absent: edema - Neurological Exam Neurological exam: Present: altered - Skin Skin exam: Present: warm Results - Labs CBC & BMP: 12/20/16 03:19 12/20/16 03:19 - Impressions Patient is a 56 yo female who underwent laparotomy with cyst gastrostomy for enlarging symptomatic pancreatic pseudocyst complicated by fascial dehiscence and MRSE wound infection. She is now confused. Acute encephalopathy: Thoughts include delirium tremens although she should be out of the window; stroke given the slurred speech; infection especially since MRSE from the wound is resistant to ciprofloxacin and clindamycin that she is taking; and possible medication side effect from ciprofloxacin or robaxin, which can cause confusion. Recommendations: obtain head CT, check nh3; add vancomycin; cxray; treat with valium; check EKG and if qtc is not abnormal, geodon if valium not helpful. 1:1 sitter. May need repeat CTAP. Consider ID consult. Thanks for the consult. Medicine team will continue to follow patient with you. Specialty Discharge - Follow Up or Referrals Follow up with: Lux Perez MD [Physician] -
--- NOTE | 2016-12-21 05:58 | EKG Report ---
Stationary ECG Study [facility] Test Date: 12/21/2016 5:58:17 AM Pat Name: BERE FERNANDEZ Department: Room: 339 Gender: F Cryptological Technician: ROBINA : 1960 Requested by: Sofia Peters Order Number: [id number] Reading MD: MELISSA FAUSTIN Intervals Singer Rate: 117 P: 3 MT: 158 QRS: -7 QRSD: 86 T: 4 QT: 434 QTc: 503 Interpretive Statements SINUS TACHYCARDIA POSSIBLE LEFT ATRIAL ENLARGEMENT THERE IS BASELINE ARTIFACT THAT LIMITS THE ACURACY OF THE INTERPRETATION Electronically Signed On 12-21-16 16:56:17 CDT by MELISSA FAUSTIN [email or web address]
[2016-12-21 06:39] LABS: Calcium 7.9 MG/DL (8.5-10.1); Magnesium 1.8 MG/DL (1.8-2.4); Osmolality,Calculated 275.4 MOS/KG (273-304); Phosphorous 2.5 MG/DL (2.5-4.9); Potassium 3.6 MMOL/L (3.5-5.1); Prealbumin 4.5 MG/DL (20-40)
--- NOTE | 2016-12-21 06:44 | CT Report ---
CT of the head without contrast. Indication: Confusion. Altered mental status. There is mild calcific plaque present within the intracranial internal carotid arteries. The ventricles are normal in size and configuration. There is no mass effect, midline shift, or area of hemorrhage. No cortical infarcts are seen at this time. The calvarium is intact. The included paranasal sinuses and the mastoid air cells are clear. Impression: No acute intracranial process is seen. The CT exam was performed using one or more of the following dose reduction techniques: Automated exposure control, adjustment of the mA and/or kV according to patient size, or use of iterative reconstruction technique. PROCEDURE INTERPRETED AT [facility] DEPARTMENT OF RADIOLOGY Final Report Signed by: Dr. Alanna Ovalle
--- NOTE | 2016-12-21 06:47 | XRay Report ---
Portable chest. Indication: Pneumonia. Comparison: December 20, 2016. The heart is enlarged. The pulmonary vasculature is prominent. There are diffuse bilateral alveolar infiltrates. Atelectasis in the left lung base shows interval improvement. PICC line is in satisfactory position. Nasogastric tube has been removed. Impression: Bilateral alveolar infiltrates, pulmonary edema versus pneumonia. Improving aeration of the left base with only minimal atelectasis persisting. PROCEDURE INTERPRETED AT [facility] DEPARTMENT OF RADIOLOGY Final Report Signed by: Dr. Alanna Ovalle
[2016-12-21] MEDS ORDERED: VANCOMYCIN INJ 1,250 MG in SODIUM CHLORIDE 0.9% 250 ML IV ONE (07:00)
[2016-12-21] MEDS: DEXT 5% NACL 0.45% KCL 40 MEQ 40 MEQ/1,000 ML BAG IV SCH ×4 (07:01→18:36)
[2016-12-21] MEDS: LORazepam 2 MG/1 ML VIAL IV PRN (07:14)
--- NOTE | 2016-12-21 07:44 | Event Note ---
General Surgery Progress Note Chief complaint This patient is a 56-year-old woman admitted following laparotomy with cyst gastrostomy on 12/13/2016 Interval history The patient has become delirious with tachycardia and hallucinations as well as agitation overnight. Her lab work this morning is fairly normal on the electrolytes. CT head was negative. EKG did not show any acute findings of sinus tachycardia. Patient's states that her last known drink was in August but he is unsure if she sometimes slips out and drinks at home. She is 1 week out from surgery. Physical exam Patient is afebrile with tachycardia and hypertension Patient is agitated and picking at everything as well as hallucinating Her saturations are a little bit low at 92% Her chest is clear Heart is regular Wound VAC in place with minimal drainage. No erythema around incision any longer. Bowel sounds are hypoactive. WILMER drain is serosanguineous. Labs Beta-hemolytic strep on cultures but is multi resistant but sensitive to Zyvox Imaging Hold off on NG tube given agitation Start Zyvox for wound infection Transfer to ICU for alcohol withdrawal with DTs, initiate aggressive benzodiazepine protocol to prevent seizure disorder We will start the patient on a heparin infusion as well until we can safely get a CTA to rule out pulmonary embolism.
[2016-12-21] MEDS ORDERED: ETOMIDATE 20 MG/10 ML VIAL IV ONE ×2 (08:00→08:02)
[2016-12-21] MEDS ORDERED: MIDAZOLAM 2 MG/2 ML VIAL IV ONE (08:00)
[2016-12-21] MEDS ORDERED: SUCCINYLCHOLINE 200 MG/10 ML VIAL IV ONE (08:00)
[2016-12-21] MEDS ORDERED: SUCCINYLCHOLINE 200 MG/10 ML VIAL ONE (08:02)
[2016-12-21] MEDS ORDERED: HEPARIN DRIP 25,000 UNITS/500 ML PREMIX IV SCH (08:06)
[2016-12-21] MEDS ORDERED: HEPARIN 5,000 UNIT/1 ML VIAL IV ONE (08:06)
[2016-12-21] MEDS ORDERED: LORazepam 2 MG/1 ML VIAL IV PRN (08:06)
[2016-12-21] MEDS ORDERED: MIDAZOLAM 2 MG/2 ML VIAL ONE (08:12)
[2016-12-21] MEDS: ALBUTEROL 2.5 MG/3 ML NEB RESP TX SCH ×2 (08:20→20:39)
[2016-12-21] MEDS ORDERED: LORazepam 2 MG/1 ML VIAL IV ONE (08:32)
[2016-12-21] MEDS: CIPROFLOXACIN INJ 400 MG in PREMIX 1 EACH IV SCH ×2 (08:36→09:22)
--- NOTE | 2016-12-21 08:37 | XRay Report ---
Portable chest. Indication: Endotracheal tube placement. Nasogastric tube placement. The distal tip of the endotracheal tube is in the right mainstem bronchus. It needs to be retracted about 4 cm. The distal tip of the nasogastric tube is in the antrum of the stomach. A PICC line remains in satisfactory position. The heart is enlarged. Bilateral alveolar infiltrates are present. There is interval improvement in aeration compared to the previous exam. No pneumothorax. Impression: 1. Endotracheal tube is in the right mainstem bronchus and needs to be retracted. This findings was called to the ICU. 2. Satisfactory nasogastric tube placement. 3. Improvement in aeration, bilateral alveolar infiltrates persist. PROCEDURE INTERPRETED AT [facility] DEPARTMENT OF RADIOLOGY Final Report Signed by: Dr. Alanna Ovalle
[2016-12-21 08:44] LABS: Magnesium 1.9 MG/DL (1.8-2.4); Osmolality,Calculated 275.4 MOS/KG (273-304); Potassium 3.8 MMOL/L (3.5-5.1)
[2016-12-21] MEDS ORDERED: PROPOFOL 1,000 MG/100 ML BOTTLE IV ONE (08:44)
[2016-12-21] MEDS: PROPOFOL 1,000 MG/100 ML BOTTLE IV SCH ×5 (08:53→23:06)
[2016-12-21] MEDS ORDERED: VECURONIUM 10 MG VIAL IV ONE ×3 (08:57)
[2016-12-21] MEDS ORDERED: PROPOFOL 1,000 MG/100 ML BOTTLE IV SCH (09:00)
--- NOTE | 2016-12-21 09:17 | Anesthesia Procedures ---
Anesthesia Procedures - Intubation Time out performed intubation: Yes Sedative: other (Propofol) Mg given sedative: 50 Paralytic: Vecuronium Mg given paralytic: 10 Laryngoscope: other Assist Device Used: Bougie ET Tube Size: 7.5 ET Tube Uncuffed: No Tube Secured Depth (cm): 22 Tube Secured Location: teeth Tube Placement Confirmation: equal breath sounds bilaterally, no breath sounds over epigastrium, confirmation detector color change Patient tolerated procedure intubation: no complications Intubation Complications: none Additional Commets: Called by Dr. Perez to exchange OETT due to cuff leak. Tube changed over boadam. Talon well. VSS.
[2016-12-21 09:22] LABS: ABG Base Excess -2.7 MMOL/L (-2.5-2.5); ABG HCO3 22.2 MMOL/L (20-26); ABG Oxygen Saturation 98.8 % (95-100); ABG PH 7.309 (7.35-7.45); ABG TCO2 22.2 MMOL/L (23-27); Pt O2 Delivery Device Ventilator
[2016-12-21] MEDS: LORazepam INJ 40 MG in DEXTROSE 5% 30 ML IV SCH ×2 (09:30→20:27)
--- NOTE | 2016-12-21 09:33 | XRay Report ---
Portable chest. Indication: Endotracheal tube placement. The endotracheal tube has been retracted and is now near the shruthi. It needs to be retracted an additional 1-2 cm. The heart size is stable. Bilateral infiltrates are again noted. Improved aeration at the left base. Nasogastric tube and PICC line remain in satisfactory position. Impression: Additional retraction of the endotracheal tube is recommended, about 1 to 2 cm. PROCEDURE INTERPRETED AT [facility] DEPARTMENT OF RADIOLOGY Final Report Signed by: Dr. Alanna Ovalle
[2016-12-21 09:49] LABS: Albumin 1.8 G/DL (3.4-5.0); Bilirubin,Direct 0.4 MG/DL (0.0-0.20); Bilirubin,Indirect 0.2 MG/DL (0.0-1.0); Bilirubin,Total 0.6 MG/DL (0.2-1.0); Total Protein 5.2 G/DL (6.4-8.3)
[2016-12-21 10:25] LABS: Apearance,Urine CLEAR (Clear); Bilirubin,Urine Negative (Negative); Blood, Urine Negative (Negative); Glucose,Urine (UA) Negative (Negative); Ketones,Urine Negative (Negative); Mucus,Urine Occasional /LPF (Occasional); Nitrite,Urine Negative (Negative); Protein,Urine Negative; Squamous Epithelial Cell,Urine Occasional /HPF (0-10); Urine Color Yellow (Yellow); Urine Specific Gravity 1.012 (1.001-1.035); Urine Urobilinogen < 2.0 EU/DL (0.2-1.0); WBC,Urine 1 /HPF (0-6)
[2016-12-21] MEDS: LINEZOLID INJ 600 MG in PREMIX 1 EACH IV SCH ×2 (10:45→19:28)
[2016-12-21] MEDS: DULoxetine 30 MG CAPSULE PO SCH (11:02)
[2016-12-21] MEDS: MULTIVITAMIN (CENTRUM) TABLET PO SCH (11:02)
[2016-12-21] MEDS: FOLIC ACID 1 MG TABLET PO SCH (11:02)
[2016-12-21] MEDS: POLYETHYLENE GLYCOL POWDER 17 GM PACK PO SCH (11:03)
[2016-12-21] MEDS: PROPRANOLOL 20 MG TABLET PO SCH ×3 (11:03→21:27)
[2016-12-21] MEDS: BECLOMETHASONE 40 MCG/PUFF INHALER 8.7 GM INH SCH (11:03)
[2016-12-21] MEDS: THIAMINE 100 MG TABLET PO SCH (11:03)
[2016-12-21] MEDS: PANTOPRAZOLE 40 MG VIAL IV SCH (11:08)
--- NOTE | 2016-12-21 12:02 | Pulmonology Consult Note ---
Assessment and Plan (1) Pancreatic pseudocyst Status: Acute Assessment and plan: Patient apparently has a long history of pancreatitis. She had surgery 8 days ago with a cyst drained in her stomach. She has had a wound VAC in place and had a wound culture positive for KODAK. Apparently has an ileus at present and is being fed with TPN. Current Visit: Yes (2) Acute respiratory failure Status: Acute Assessment and plan: She has decreased level of consciousness and acute respiratory failure is on the ventilator. She was requiring a good bit of sedation for her delirium. I am concerned about the combination of Zyvox and SSRI meds. We will stop Cymbalta. May want to consider going to vancomycin since she has normal renal function. In any rate ABGs look okay with PO2 180 on 100% oxygen. Presently on 60%. Adjusting tidal volumes. Recheck ABGs. She has relatively mild but diffuse interstitial infiltrates. Could be ahead on fluid or this could be early ARDS. Will check BNP. Current Visit: Yes (3) Abdominal wound infection Status: Acute Assessment and plan: Consider changing to vancomycin from Zyvox because of the multitude of medications that she is on and the possible interactions. Current Visit: Yes (4) Delirium Status: Acute Assessment and plan: Thought that she may be having alcohol withdrawal. She has been in the hospital about a week. Unclear how long since last drink prior to admission. Current Visit: Yes (5) History of alcohol abuse Status: Acute Assessment and plan: Apparently the cause of her pancreatitis. Again watching for evidence of alcohol withdrawal. Current Visit: Yes History of Present Illness Chief complaint: Respiratory failure History of present illness: Ms. Crum is a 56 year old female who had surgery to correct a pancreatic pseudo -cyst about 8 days ago. She had MRSA wound infection. She became more confused yesterday and had hallucinations. She has been on Ativan and Haldol. She has a long history of alcohol abuse. She supposedly stopped several months ago but family is not certain whether she may have still been drinking some. She had a previous episode of similar symptoms 5 years ago. She is on a long list of medications including Cymbalta, Seroquel, and Sinequan. Currently is on broad-spectrum antibiotics including Zyvox. At the present time she is sedated and on the ventilator. I was asked to see her to manage the ventilator. Home Medications Medication Instructions Recorded Confirmed Type Atorvastatin [Lipitor] 10 mg PO QPM 05/14/16 12/13/16 History Duloxetine HCl [Cymbalta] 120 mg PO DAILY 05/14/16 12/13/16 History Loratadine [Claritin] 10 mg PO DAILY PRN 05/14/16 12/13/16 History Mirtazapine 30 mg PO BEDTIME 05/14/16 12/13/16 History QUEtiapine [SEROquel] 100 mg PO BEDTIME 05/14/16 12/13/16 History Tizanidine HCl 2 mg PO TID PRN 05/14/16 12/13/16 History Albuterol Sulfate [Proair HFA] 2 puffs PO BID PRN 09/26/16 12/13/16 History Beclomethasone 40 Mcg Inhaler 2 puffs PO BID 09/26/16 12/13/16 History [Qvar 40 Mcg] Doxepin [SINEquan] 100 mg PO BEDTIME 09/26/16 12/13/16 History Fluticasone 50 Mcg Nasal [place] 1 spray BOTH NARES DAILY PRN 09/26/16 12/13/16 History [Flonase Nasal [place]] Propranolol Tab [Inderal Tab] 20 mg PO TID 09/26/16 12/13/16 History hydroCHLOROthiazide 12.5 mg PO QAM 09/26/16 12/13/16 History [Hydrochlorothiazide] Nicotine 21 mg/24 Hr Patch 1 patch TRANSDERM DAILY PRN #0 10/03/16 12/13/16 Rx [Nicoderm CQ 21 mg/24 hr Patch] patch amLODIPine [Norvasc] 10 mg PO QPM tablet 10/03/16 12/13/16 Rx Pantoprazole Tab [Protonix Tab] 40 mg PO QAM 10/07/16 12/13/16 History Folic Acid Tab 1 mg PO DAILY tablet 10/12/16 12/13/16 Rx Multivitamin (Centrum) [Centrum 1 tablet PO DAILY tablet 10/12/16 12/13/16 Rx Tab] Thiamine Tab [Vitamin B1 Tab] 100 mg PO DAILY tablet 10/12/16 12/13/16 Rx HYDROcodone/ACETAMIN 10-325 [[place] 1 tablet PO Q4-6H PRN 10/23/16 12/13/16 History 10-325] Ondansetron Tab [Zofran Tab] 4 mg PO Q4H PRN 12/13/16 12/13/16 History Allergies Allergy/AdvReac Type Severity Reaction Status Date / Time Penicillins Allergy Severe HIVES Verified 10/23/16 19:21 Sulfa (Sulfonamide Allergy Severe HIVES Verified 10/23/16 19:21 Antibiotics) Erythromycin Base Allergy Intermediate HIVES Verified 10/23/16 19:21 ROS unobtainable: due to endotracheal tube Exam (Pulmonay) H&P - Constitutional Vitals: Period Temp Pulse Resp BP Sys/Rodriguez Pulse Ox Last 24 Hr 96.6 F-98.7 F 97-128 12-44 82-187/52-117 91-100 Exam: Systolic blood pressure around 90. Pulse 90. Afebrile. Pupils react to light. Orotracheal tube in place. Neck is supple. Chest reveals a few scattered rhonchi equal breath sounds. Heart normal rate rhythm no murmurs. Abdomen is bandaged and she has no bowel sounds. Extremities no clubbing cyanosis edema. Medical,Surgical,& Family Hx - Medical History Cardio: History of: Hypertension (medication) Psychological: History of: Anxiety Disorders, Depression Neurology: No history of: Seizures Endocrine: History of: Dyslipidemia Rheumatology: History of;: Fibromyalgia Respiratory: History of: Asthma, Bronchitis, Obstructive Sleep Apnea (Does not wear C-pap), Pneumonia Genitourinary: History of: Kidney Stones Gastrointestinal: History of: GERD (medication), Hemorrhoids, Pancreatitis ( pancreatic cyst) Musculoskeletal: History of: Back/Neck Problems (Neck) Hematology: No history of: Blood Transfusion Reaction Reproductive: No history of: Abnormal Pap Smear, Breast Cancer Other: No history of: Anesthesia Reactions - Surgical History Cardiac Surgeries: Patient Denies: Cardiac Catheterization Thoracic Surgeries: Patient denies;: Organ Transplant, Lobectomy Neurologic Surgeries: Patient denies: Neurologic Surgery Abdominal Surgeries: Surgical HX of: Abdominal Surgery (open cyst gastrostomy Dr. Perez), Appendectomy, Colonoscopy, EGD Patient denies: Cholecystectomy, Gastric Bypass Surgery, Hernia Repair Reproductive Surgeries: Surgical HX of;: Gynecologic Surgery, Hysterectomy Patient denies;: Breast Surgery, Section Orthopedic Surgeries: Surgical HX of;: Orthopedic Surgery (LEFT shoulder rotator cuff repair) - Family History Family History: Reports;: Family Cancer, Family Hypertension Denies;: Family Anesthesia Reaction, Family Diabetes, Family Heart Disease, Family Psychiatric Problems, Family Stroke - Social History Smoking Status: Current every day smoker Frequency of Alcohol Use: Rarely Type of Drug Use: None Results - Labs CBC & BMP: 12/20/16 03:19 12/21/16 07:46 Lab Results: I have reviewed the past 24 hour labs - Diagnostic Findings Procedure: Chest x-ray: image reviewed by me, pending (Patchy bilateral infiltrates. ET tube in good position now.) Specialty Discharge - Follow Up or Referrals Follow up with: Lux Perez MD [Physician] -
--- NOTE | 2016-12-21 14:19 | Hospitalist Consult Note ---
Assessment and Plan (1) Delirium Status: Acute Assessment and plan: The patient appears to have delirium on account of metabolic encephalopathy and possible withdrawal phenomenon. The patient is presently on optimal therapy for withdrawal with Ativan infusion and is not exhibiting any tremulousness. I recommend continuing present care and begin weaning infusion tomorrow. Current Visit: Yes (2) Fibromyalgia Status: Chronic Current Visit: No (3) Acute on chronic pancreatitis Status: Acute Current Visit: No History of Present Illness - Data of Consult Patient: new to practice Requesting Physician: Brandon Amos - Consult Narrative Reason for consult: Delirium History of present illness: Ms. Crum is a 56 year old female who has been in the hospital for about 7 days. I obtained history from the chart as well as speaking with the patient's who has been with her for the last several days. He states that the patient began having hallucinations which were mild about 3 days ago. He states that she became progressively more agitated over the last 2 days and required transfer to the intensive care unit for general sedation last night. The patient's states she has similar episode several years ago when hospitalized. Similar to the situation the patient had been in the hospital for at least 5 days before the delirium began. The is not aware of the patient being on Xanax or Klonopin or taken alcohol but the patient has been secretive in the past about pharmaceutical and alcohol consumption. The patient 's delirium symptoms have improved after sedation and mechanical ventilation. The patient is presently on Ativan infusion. CC: Lux Perez MD - Home Medications and Allergies Home Medications: Home Medications Medication Instructions Recorded Confirmed Type Atorvastatin [Lipitor] 10 mg PO QPM 05/14/16 12/13/16 History Duloxetine HCl [Cymbalta] 120 mg PO DAILY 05/14/16 12/13/16 History Loratadine [Claritin] 10 mg PO DAILY PRN 05/14/16 12/13/16 History Mirtazapine 30 mg PO BEDTIME 05/14/16 12/13/16 History QUEtiapine [SEROquel] 100 mg PO BEDTIME 05/14/16 12/13/16 History Tizanidine HCl 2 mg PO TID PRN 05/14/16 12/13/16 History Albuterol Sulfate [Proair HFA] 2 puffs PO BID PRN 09/26/16 12/13/16 History Beclomethasone 40 Mcg Inhaler 2 puffs PO BID 09/26/16 12/13/16 History [Qvar 40 Mcg] Doxepin [SINEquan] 100 mg PO BEDTIME 09/26/16 12/13/16 History Fluticasone 50 Mcg Nasal [place] 1 spray BOTH NARES DAILY PRN 09/26/16 12/13/16 History [Flonase Nasal [place]] Propranolol Tab [Inderal Tab] 20 mg PO TID 09/26/16 12/13/16 History hydroCHLOROthiazide 12.5 mg PO QAM 09/26/16 12/13/16 History [Hydrochlorothiazide] Nicotine 21 mg/24 Hr Patch 1 patch TRANSDERM DAILY PRN #0 10/03/16 12/13/16 Rx [Nicoderm CQ 21 mg/24 hr Patch] patch amLODIPine [Norvasc] 10 mg PO QPM tablet 10/03/16 12/13/16 Rx Pantoprazole Tab [Protonix Tab] 40 mg PO QAM 10/07/16 12/13/16 History Folic Acid Tab 1 mg PO DAILY tablet 10/12/16 12/13/16 Rx Multivitamin (Centrum) [Centrum 1 tablet PO DAILY tablet 10/12/16 12/13/16 Rx Tab] Thiamine Tab [Vitamin B1 Tab] 100 mg PO DAILY tablet 10/12/16 12/13/16 Rx HYDROcodone/ACETAMIN 10-325 [[place] 1 tablet PO Q4-6H PRN 10/23/16 12/13/16 History 10-325] Ondansetron Tab [Zofran Tab] 4 mg PO Q4H PRN 12/13/16 12/13/16 History Allergies/Adverse Reactions: Allergies Allergy/AdvReac Type Severity Reaction Status Date / Time Penicillins Allergy Severe HIVES Verified 10/23/16 19:21 Sulfa (Sulfonamide Allergy Severe HIVES Verified 10/23/16 19:21 Antibiotics) Erythromycin Base Allergy Intermediate HIVES Verified 10/23/16 19:21 Medical,Surgical,& Family Hx - Medical History Cardio: History of: Hypertension (medication) Psychological: History of: Anxiety Disorders, Depression Neurology: No history of: Seizures Endocrine: History of: Dyslipidemia Rheumatology: History of;: Fibromyalgia Respiratory: History of: Asthma, Bronchitis, Obstructive Sleep Apnea (Does not wear C-pap), Pneumonia Genitourinary: History of: Kidney Stones Gastrointestinal: History of: GERD (medication), Hemorrhoids, Pancreatitis ( pancreatic cyst) Musculoskeletal: History of: Back/Neck Problems (Neck) Hematology: No history of: Blood Transfusion Reaction Reproductive: No history of: Abnormal Pap Smear, Breast Cancer Other: No history of: Anesthesia Reactions - Surgical History Cardiac Surgeries: Patient Denies: Cardiac Catheterization Thoracic Surgeries: Patient denies;: Organ Transplant, Lobectomy Neurologic Surgeries: Patient denies: Neurologic Surgery Abdominal Surgeries: Surgical HX of: Abdominal Surgery (open cyst gastrostomy Dr. Perez), Appendectomy, Colonoscopy, EGD Patient denies: Cholecystectomy, Gastric Bypass Surgery, Hernia Repair Reproductive Surgeries: Surgical HX of;: Gynecologic Surgery, Hysterectomy Patient denies;: Breast Surgery, Section Orthopedic Surgeries: Surgical HX of;: Orthopedic Surgery (LEFT shoulder rotator cuff repair) - Family History Family History: Reports;: Family Cancer, Family Hypertension Denies;: Family Anesthesia Reaction, Family Diabetes, Family Heart Disease, Family Psychiatric Problems, Family Stroke - Social History Smoking Status: Current every day smoker Frequency of Alcohol Use: Rarely Type of Drug Use: None 12 point system: reviewed and no additional remarkable complaints except as stated Exam - Constitutional Vitals: Period Temp Pulse Resp BP Sys/Rodriguez Pulse Ox Last 24 Hr 96.6 F-98.7 F 97-128 12-44 82-187/52-117 91-100 General appearance: no acute distress - Respiratory Respiratory exam: Present: clear to auscultation bilaterally - Cardiovascular Cardiovascular exam: Present: regular rate and rhythm - GI/Abdominal GI/Abdominal exam: Present: normal bowel sounds Results - Labs CBC & BMP: 12/20/16 03:19 12/21/16 07:46 Lab Results: I have reviewed the past 24 hour labs Specialty Discharge - Follow Up or Referrals Follow up with: Lux Perez MD [Physician] -
--- NOTE | 2016-12-21 14:52 | CT Report ---
Exam: CT chest PE study Date: 12/21/2016 9:02 AM Indication: Hypoxemia and tachycardia postop Comparison: Routine chest radiograph. Total DLP 1522.5 Technical: Images were obtained from the thoracic inlet through the lung bases with 80 cc of Omnipaque 350 with axial and coronal imaging available for review. Dose reduction was performed with decreasing kv and mA and automated exposure. 3-D MIP images were obtained Findings: Endotracheal tube is present. A left-sided PICC line is present with distal superior vena cava. Nasogastric tube traverses the esophagus into the stomach.. The pulmonary outflow tract, left and right proximal pulmonary arteries, first-order, second-order and third order branches reveal no evidence of pulmonary thromboemboli. The lungs are demonstrated with low volume effusions left greater than right and diffuse infiltrates present groundglass densities and alveolar infiltrates present in the lung valencia throughout. No pneumothorax present. No obvious adenopathy present. Minimal degenerative lipping of the thoracic spine. Cardiomegaly is present. Impression: 1. Endotracheal tube nasogastric tube and left-sided PICC line present 2. Diffuse pulmonary infiltrates present bilaterally with low volume effusion left greater than right 3. No pneumothorax 4. Mild cardiomegaly without pericardial effusion 5. CT scan of the abdomen pelvis is also ordered. PROCEDURE INTERPRETED AT [facility] DEPARTMENT OF RADIOLOGY Final Report Signed by: Dr. Douglas Reyes
--- NOTE | 2016-12-21 14:58 | CT Report ---
CT abdomen pelvis w con Indication: Abdominal distention and tachycardia. CT ABDOMEN AND PELVIS WITH CONTRAST DLP: 1523 mGy*cm. One or more of the following dose reduction techniques was used: Automated exposure control, adjustment of the mA and/or kV according the patient size, or use of iterative reconstruction techniques. Comparison: 12/18/2016 Technique: Axial CT images of the abdomen and pelvis were obtained with IV contrast; Omnipaque 350, 100 cc. Oral contrast was administered. Abdomen: Anterior abdominal wall incision remains open with WILMER drains in the region. A peripherally enhancing fluid collection involving the or adjacent to the lateral segment left liver lobe has decreased in size from the previous exam, now measuring 53 x 32 mm, previously 81 x 41 mm the same level. Small pockets of gas within the fluid collection are stable. Fatty infiltration of liver noted. No new liver lesions are seen. Gallbladder remains distended. Spleen, adrenal glands and kidneys are unremarkable. Inflammation associated with what appears to be a gastrocystostomy off of a pancreatic pseudocyst is not appreciably changed. The remaining identifiable pancreatic parenchyma appears stable with some stippled calcifications noted. Along the anterior abdomen, between the residual peritoneum and loops of dilated small bowel is a mantle of oral contrast that contains some gas. This is completely decompressed transverse colon and not spillage into the peritoneal space. Mild cardiomegaly, tiny left pleural effusion and bibasilar atelectasis and/or pneumonia are noted. Infiltrate is developing within the right middle lobe as well. There is small bowel dilatation now present, maximum diameter 53 mm left mid abdomen. This is worse than previous. In the distal ileum, there is a gradual transition to normal size small bowel without a sharply demarcated transition point. However, the downstream small bowel and colon are decompressed. Pelvis: Oral contrast collects in the rectal vault. Urinary bladder contains some gas and a Melton catheter is present. Trace amount of free fluid in the pelvis noted. Uterus is absent. Impression: 1. Worsening small bowel dilatation centrally with decompressed distal small bowel and colon suggesting a small bowel obstruction. Actual discrete transition point is not identified but suspect right lower quadrant region. 2. Continued inflammation and distortion of architecture in the region of a gastrocystostomy. Atrophy of the pancreas and calcifications of chronic pancreatitis noted as well. 3. Decreased size of abscess adjacent to or arising within the lateral segment left liver lobe. 4. Mild cardiomegaly, tiny left pleural effusion and bibasilar atelectasis with probable bibasilar pneumonia now present. PROCEDURE INTERPRETED AT [facility] DEPARTMENT OF RADIOLOGY Final Report Signed by: Dario Edwards M.D.
[2016-12-21] MEDS ORDERED: SODIUM CHLORIDE 0.9% 1,000 ML IV ONE (15:48)
[2016-12-21] MEDS: HYDROmorphone PCA 30 MG/30 ML SYRINGE IV SCH (16:01)
[2016-12-21] MEDS ORDERED: PHENYLEPHRINE DRIP 40 MG/250 ML PREMIX IV ONE (16:57)
[2016-12-21 16:59] LABS: ABG Base Excess -0.8 MMOL/L (-2.5-2.5); ABG HCO3 23.7 MMOL/L (20-26); ABG Oxygen Saturation 92.8 % (95-100); ABG PCO2 37.1 MM HG (35-48); ABG PH 7.412 (7.35-7.45); ABG PO2 66.2 MM HG (80-95); ABG TCO2 22.3 MMOL/L (23-27)
[2016-12-21] MEDS ORDERED: DEXTROSE 10% 1,000 ML IV PRN (17:00)
[2016-12-21] MEDS: PHENYLEPHRINE DRIP 40 MG/250 ML PREMIX IV SCH (17:00)
[2016-12-21 17:15] LABS: Basophils % 0.2 % (0.0-0.8); Eosinophils # 0.1 10*3/uL (0.0-0.87); Eosinophils % 0.5 % (0.00-10.9); Hematocrit 22.7 VOL% (35.7-47.0); Hemoglobin 7.6 GM/DL (12.0-16.0); Lymphocytes % 12.1 % (21.3-54.2); Mean Corpuscular HGB Conc 33.5 GM/DL (32-36); Mean Corpuscular Hemoglobin 32 PG (27-34); Mean Corpuscular Volume 94.2 FL (87-102); Mean Platelet Volume 10.5 FL (9.6-12.0); Monocytes # 1.1 10*3/uL (0.11-0.8); Monocytes % 6.8 % (1.7-12.7); NRBC # 0.05 10*3/uL; Neutrophils # 12.9 10*3/uL (1.4-7.4); Neutrophils % 77.4 % (38.7-73.9); Platelet Count 338 T/CUMM (130-400); Red Blood Count 2.41 MC/CUMM (3.8-5.5); Red Cell Distribution Width 17.3 % (9.3-17.3); White Blood Count 16.6 T/CUMM (4-12)
[2016-12-21] MEDS: FAT EMULSION 20% 250 ML IV SCH (18:31)
[2016-12-21] MEDS: TRACE ELEMENTS IV SCH (18:36)
[2016-12-21] MEDS: MULTIVITAMIN IV SCH (18:36)
[2016-12-21] MEDS: ELECTROLYTE IV SCH (18:36)
[2016-12-21] MEDS: [UNRECOGNIZED DRUG - OTHER] IV SCH (18:36)
[2016-12-21] MEDS ORDERED: SODIUM CHLORIDE 0.9% 250 ML IV PRN (19:25)
[2016-12-21] MEDS: POTASSIUM CHLORIDE RIDER 10 MEQ in PREMIX 1 EACH IV PRN ×2 (20:30→21:39)
[2016-12-21] MEDS: ATORVASTATIN 10 MG TABLET PO SCH (21:27)
[2016-12-21] MEDS: amLODIPine 10 MG TABLET PO SCH (21:28)
[2016-12-21] MEDS: HYDROmorphone 2 MG/1 ML VIAL IV PRN (21:40)
[2016-12-21] MEDS: QUEtiapine 100 MG TABLET PO SCH (21:58)
[2016-12-21] MEDS: MIRTAZAPINE 30 MG TABLET PO SCH (21:58)
[2016-12-21] MEDS: DOXEPIN 25 MG CAPSULE PO SCH (21:58)
[2016-12-22] MEDS: INSULIN LISPRO 100 UNIT/ML SUBCUT SCH ×4 (00:34→19:28)
[2016-12-22] MEDS: METHOCARBAMOL INJ 500 MG in SODIUM CHLORIDE 0.9% 100 ML IV SCH ×3 (02:15→17:21)
[2016-12-22] MEDS: PROPOFOL 1,000 MG/100 ML BOTTLE IV SCH ×4 (04:27→20:25)
[2016-12-22 04:42] LABS: ABG Base Excess 0.3 MMOL/L (-2.5-2.5); ABG HCO3 24.7 MMOL/L (20-26); ABG Oxygen Saturation 98.3 % (95-100); ABG PCO2 35.3 MM HG (35-48); ABG PH 7.441 (7.35-7.45); ABG TCO2 21.8 MMOL/L (23-27); Allen Test Positive; Pt O2 Delivery Device Ventilator
[2016-12-22 04:44] LABS: Basophils % 0.2 % (0.0-0.8); Eosinophils # 0.2 10*3/uL (0.0-0.87); Eosinophils % 1.5 % (0.00-10.9); Hemoglobin 10.3 GM/DL (12.0-16.0); Immature Granulocytes % 3.3 %; Immature Granulocytes Absolute 0.42 #; Lymphocytes # 1.2 10*3/uL (1.4-4.0); Lymphocytes % 9.1 % (21.3-54.2); Mean Corpuscular HGB Conc 33.2 GM/DL (32-36); Mean Corpuscular Hemoglobin 30 PG (27-34); Mean Corpuscular Volume 90.6 FL (87-102); Mean Platelet Volume 10.6 FL (9.6-12.0); Monocytes # 0.6 10*3/uL (0.11-0.8); Monocytes % 4.3 % (1.7-12.7); Neutrophils # 10.5 10*3/uL (1.4-7.4); Neutrophils % 81.6 % (38.7-73.9); Platelet Count 397 T/CUMM (130-400); Red Blood Count 3.42 MC/CUMM (3.8-5.5); Red Cell Distribution Width 17.2 % (9.3-17.3); White Blood Count 12.9 T/CUMM (4-12)
[2016-12-22] MEDS: DEXT 5% NACL 0.45% KCL 40 MEQ 40 MEQ/1,000 ML BAG IV SCH (04:52)
[2016-12-22 05:22] LABS: Eosinophils 1 % (0-10); Hypochromasia 1+; Lymphocytes 9 % (20-55); Microcytosis 1+; Nucleated Red Blood Cells 1 (0-5); Segmented Neutrophils 89 % (50-85); Total Cells Counted 100
[2016-12-22 05:38] LABS: Albumin 1.4 G/DL (3.4-5.0); Bilirubin,Total 1.3 MG/DL (0.2-1.0); Calcium 7.6 MG/DL (8.5-10.1); Potassium 3.7 MMOL/L (3.5-5.1); Total Protein 4.7 G/DL (6.4-8.3)
[2016-12-22] MEDS: LORazepam INJ 40 MG in DEXTROSE 5% 30 ML IV SCH ×3 (05:49→17:22)
--- NOTE | 2016-12-22 06:23 | Pulmonology Progress Note ---
Pulmonary - PN: Subj Interval history: This 56-year-old lady had surgery for a pancreatic pseudocyst. She developed respiratory failure and is on the ventilator. She has bilateral infiltrates and today's looks a little worse on the right side. ABGs acceptable. Apparently was having some symptoms of alcohol withdrawal. At the present time she sedated so no symptoms of that now Exam (Progress Note) - Constitutional Vitals: Period Temp Pulse Resp BP Sys/Rodriguez Pulse Ox Last 24 Hr 97.2 F-98.7 F 66-128 12-44 73-187/48-117 93-100 Exam: Patient is sedated. Vital signs are normal. Pupils react to light. Orotracheal tube in place. Neck is supple no bruits. Chest shows some rhonchi bilaterally. Heart normal rate rhythm no murmurs. Abdomen soft bandaged no bowel sounds. Extremities no clubbing cyanosis or edema. Results - Labs CBC & BMP: 12/22/16 03:43 12/22/16 03:43 Lab Results: I have reviewed the past 24 hour labs - Diagnostic Findings Procedure: Chest x-ray: image reviewed by me (Bilateral pulmonary infiltrates a little worse on the right side. ET tube good position.) Assessment and Plan (1) Pancreatic pseudocyst Status: Acute Assessment and plan: Patient apparently has a long history of pancreatitis. She had surgery 8 days ago with a cyst drained in her stomach. She has had a wound VAC in place and had a wound culture positive for MRSE. Apparently has an ileus at present and is being fed with TPN. 12/22/2016 status post drainage of pseudocyst in the stomach. This happened a little over week ago. Current Visit: Yes (2) Acute respiratory failure Status: Acute Assessment and plan: She has decreased level of consciousness and acute respiratory failure is on the ventilator. She was requiring a good bit of sedation for her delirium. I am concerned about the combination of Zyvox and SSRI meds. We will stop Cymbalta. May want to consider going to vancomycin since she has normal renal function. In any rate ABGs look okay with PO2 180 on 100% oxygen. Presently on 60%. Adjusting tidal volumes. Recheck ABGs. She has relatively mild but diffuse interstitial infiltrates. Could be ahead on fluid or this could be early ARDS. Will check BNP. 12/22/2016 ABGs marginal but acceptable. Not able to wean as yet. Probably has ARDS. Current Visit: Yes (3) Abdominal wound infection Status: Acute Assessment and plan: Consider changing to vancomycin from Zyvox because of the multitude of medications that she is on and the possible interactions. 12/22/1969 continuing antibiotics. Current Visit: Yes (4) Delirium Status: Acute Assessment and plan: Thought that she may be having alcohol withdrawal. She has been in the hospital about a week. Unclear how long since last drink prior to admission. 12/22/2016 felt to be due to alcohol withdrawal. Sedated at present. Current Visit: Yes (5) History of alcohol abuse Status: Acute Assessment and plan: Apparently the cause of her pancreatitis. Again watching for evidence of alcohol withdrawal. Current Visit: Yes Specialty Discharge - Follow Up or Referrals Follow up with: Lux Perez MD [Physician] -
[2016-12-22] MEDS: LINEZOLID INJ 600 MG in PREMIX 1 EACH IV SCH ×2 (06:37→21:10)
[2016-12-22] MEDS: POTASSIUM CHLORIDE RIDER 10 MEQ in PREMIX 1 EACH IV PRN (06:42)
[2016-12-22] MEDS: ALBUTEROL 2.5 MG/3 ML NEB RESP TX SCH ×2 (07:12→19:51)
--- NOTE | 2016-12-22 07:57 | Event Note ---
Received 2 units of packed red blood cells for symptomatic anemia overnight. Currently afebrile and her vital signs are stable. She is intubated and sedated. Abdomen is soft mildly distended. Wound VAC and JPs are in place with minimal output. She is on TPN. NG tube with moderate output overnight. Continue TPN and NG tube to suction. Continue treatment for her agitation.
[2016-12-22] MEDS ORDERED: SODIUM CHLORIDE 0.9% 1,000 ML IV SCH (08:00)
[2016-12-22] MEDS: SODIUM CHLORIDE 0.9% 1,000 ML IV SCH (08:50)
--- NOTE | 2016-12-22 08:53 | XRay Report ---
XR chest 1V portable Indication: Intubated. Chest one view: Since yesterday, endotracheal tube, NG tube, PICC line, borderline cardiomegaly are stable. Worsening patchy alveolar consolidation of both lungs noted diffusely. Lung volumes remain low. Impression: Worsening alveolar consolidation of the lungs with low lung volumes. Suspect developing ARDS and/or multifocal pneumonia. PROCEDURE INTERPRETED AT [facility] DEPARTMENT OF RADIOLOGY Final Report Signed by: Dario Edwards M.D.
[2016-12-22] MEDS: FOLIC ACID 1 MG TABLET PO SCH (09:49)
[2016-12-22] MEDS: MULTIVITAMIN (CENTRUM) TABLET PO SCH (09:51)
[2016-12-22] MEDS: POLYETHYLENE GLYCOL POWDER 17 GM PACK PO SCH (09:51)
[2016-12-22] MEDS: THIAMINE 100 MG TABLET PO SCH (09:51)
[2016-12-22] MEDS: PANTOPRAZOLE 40 MG VIAL IV SCH (09:52)
[2016-12-22] MEDS: PROPRANOLOL 20 MG TABLET PO SCH ×3 (09:57→21:08)
--- NOTE | 2016-12-22 13:42 | Hospitalist Progress Note ---
Assessment and Plan (1) Delirium Status: Acute Assessment and plan: The patient appears to have delirium on account of metabolic encephalopathy and possible withdrawal phenomenon. The patient is presently on optimal therapy for withdrawal with Ativan infusion and is not exhibiting any tremulousness. I recommend continuing present care and begin weaning infusion tomorrow. Current Visit: Yes (2) Fibromyalgia Status: Chronic Current Visit: No (3) Acute on chronic pancreatitis Status: Acute Current Visit: No Hospitalist: Subjective Interval history: The patient is resting quietly on ventilator. The patient is well sedated on Ativan infusion. Exam - Constitutional Vitals: Period Temp Pulse Resp BP Sys/Rodriguez Pulse Ox Last 24 Hr 97.2 F-98.3 F 66-116 14-36 73-135/48-90 93-100 General appearance: no acute distress - Head Head exam: Present: normal inspection - Respiratory Respiratory exam: Present: clear to auscultation bilaterally. Absent: rales - Cardiovascular Cardiovascular exam: Present: regular rate and rhythm - GI/Abdominal GI/Abdominal exam: Present: hypoactive bowel sounds Results - Labs CBC & BMP: 12/22/16 03:43 12/22/16 03:43 Lab Results: I have reviewed the past 24 hour labs Specialty Discharge - Follow Up or Referrals Follow up with: Lux Perez MD [Physician] -
[2016-12-22] MEDS: PHENYLEPHRINE DRIP 40 MG/250 ML PREMIX IV SCH (17:20)
[2016-12-22] MEDS: ELECTROLYTE IV SCH (17:24)
[2016-12-22] MEDS: MULTIVITAMIN IV SCH (17:24)
[2016-12-22] MEDS: [UNRECOGNIZED DRUG - OTHER] IV SCH (17:24)
[2016-12-22] MEDS: TRACE ELEMENTS IV SCH (17:24)
[2016-12-22] MEDS: DOXEPIN 25 MG CAPSULE PO SCH (21:09)
[2016-12-22] MEDS: QUEtiapine 100 MG TABLET PO SCH (21:09)
[2016-12-22] MEDS: ATORVASTATIN 10 MG TABLET PO SCH (21:09)
[2016-12-22] MEDS: MIRTAZAPINE 30 MG TABLET PO SCH (21:09)
[2016-12-22] MEDS: amLODIPine 10 MG TABLET PO SCH (21:09)
[2016-12-22] MEDS: HYDROmorphone 2 MG/1 ML VIAL IV PRN (21:15)
[2016-12-23] MEDS: LORazepam INJ 40 MG in DEXTROSE 5% 30 ML IV SCH ×4 (00:50→19:45)
[2016-12-23] MEDS: PROPOFOL 1,000 MG/100 ML BOTTLE IV SCH ×6 (00:55→21:15)
[2016-12-23] MEDS: INSULIN LISPRO 100 UNIT/ML SUBCUT SCH ×4 (01:11→18:14)
[2016-12-23] MEDS: METHOCARBAMOL INJ 500 MG in SODIUM CHLORIDE 0.9% 100 ML IV SCH ×3 (03:06→18:14)
[2016-12-23 04:04] LABS: Allen Test Positive; Pt O2 Delivery Device Ventilator
[2016-12-23 04:08] LABS: ABG Base Excess 1.4 MMOL/L (-2.5-2.5); ABG HCO3 25.5 MMOL/L (20-26); ABG Oxygen Saturation 96.4 % (95-100); ABG PCO2 37.9 MM HG (35-48); ABG PH 7.445 (7.35-7.45); ABG PO2 84.2 MM HG (80-95); ABG TCO2 26.6 MMOL/L (23-27)
[2016-12-23 05:04] LABS: Basophils % 0.3 % (0.0-0.8); Eosinophils # 0.3 10*3/uL (0.0-0.87); Eosinophils % 2.7 % (0.00-10.9); Hematocrit 27.7 VOL% (35.7-47.0); Immature Granulocytes % 6.4 %; Lymphocytes # 1.5 10*3/uL (1.4-4.0); Lymphocytes % 13.2 % (21.3-54.2); Mean Corpuscular HGB Conc 32.5 GM/DL (32-36); Mean Corpuscular Hemoglobin 30 PG (27-34); Mean Corpuscular Volume 92.6 FL (87-102); Mean Platelet Volume 10.8 FL (9.6-12.0); Monocytes # 0.4 10*3/uL (0.11-0.8); Monocytes % 3.6 % (1.7-12.7); NRBC # 0.04 10*3/uL; Neutrophils # 8.1 10*3/uL (1.4-7.4); Neutrophils % 73.8 % (38.7-73.9); Platelet Count 379 T/CUMM (130-400); Red Blood Count 2.99 MC/CUMM (3.8-5.5); Red Cell Distribution Width 17.7 % (9.3-17.3)
[2016-12-23 05:30] LABS: Calcium 7.6 MG/DL (8.5-10.1); Osmolality,Calculated 287.6 MOS/KG (273-304); Potassium 3.5 MMOL/L (3.5-5.1)
[2016-12-23 05:52] LABS: Band Neutrophils 3 % (0-10); Eosinophils 3 % (0-10); Hypochromasia 2+; Lymphocytes 12 % (20-55); Platelet Estimate Normal; Segmented Neutrophils 78 % (50-85); Total Cells Counted 100
--- NOTE | 2016-12-23 06:49 | Pulmonology Progress Note ---
Pulmonary - PN: Subj Interval history: This 56-year-old lady had surgery for a pancreatic pseudocyst. She developed respiratory failure and is on the ventilator. She has bilateral infiltrates and today's looks a little worse on the right side. ABGs acceptable. Apparently was having some symptoms of alcohol withdrawal. At the present time she sedated so no symptoms of that now 12/23/2016 O2 sats look a little better. Chest x-ray show some improvement. ABGs are pending. Will adjust ventilator and start CPAP if tolerated. Exam (Progress Note) - Constitutional Vitals: Period Temp Pulse Resp BP Sys/Rodriguez Pulse Ox Last 24 Hr 97.4 F-98.9 F 62-92 14-28 94-123/52-97 94-100 Exam: Patient is sedated. Vital signs are normal. Pupils react to light. Orotracheal tube in place. Neck is supple no bruits. Chest shows some rhonchi bilaterally. Heart normal rate rhythm no murmurs. Abdomen soft bandaged no bowel sounds. Extremities no clubbing cyanosis or edema. Little change from yesterday. Results - Labs CBC & BMP: 12/23/16 04:14 12/23/16 04:14 Lab Results: I have reviewed the past 24 hour labs - Diagnostic Findings Procedure: Chest x-ray: image reviewed by me (Right infiltrate a little bit less intense. ET tube good position) Assessment and Plan (1) Pancreatic pseudocyst Status: Acute Assessment and plan: Patient apparently has a long history of pancreatitis. She had surgery 8 days ago with a cyst drained in her stomach. She has had a wound VAC in place and had a wound culture positive for MRSE. Apparently has an ileus at present and is being fed with TPN. 12/22/2016 status post drainage of pseudocyst in the stomach. This happened a little over week ago. 12/23/2016 status post repair. Current Visit: Yes (2) Acute respiratory failure Status: Acute Assessment and plan: She has decreased level of consciousness and acute respiratory failure is on the ventilator. She was requiring a good bit of sedation for her delirium. I am concerned about the combination of Zyvox and SSRI meds. We will stop Cymbalta. May want to consider going to vancomycin since she has normal renal function. In any rate ABGs look okay with PO2 180 on 100% oxygen. Presently on 60%. Adjusting tidal volumes. Recheck ABGs. She has relatively mild but diffuse interstitial infiltrates. Could be ahead on fluid or this could be early ARDS. Will check BNP. 12/22/2016 ABGs marginal but acceptable. Not able to wean as yet. Probably has ARDS. 12/23/2016 clinical picture is that of ARDS. Adjusting ventilator and start weaning but it may take a few days. Current Visit: Yes (3) Abdominal wound infection Status: Acute Assessment and plan: Consider changing to vancomycin from Zyvox because of the multitude of medications that she is on and the possible interactions. 12/22/16 continuing antibiotics. 12/23/2016 grew 2 different kinds of staph from wound. On Zyvox. Current Visit: Yes (4) Delirium Status: Acute Assessment and plan: Thought that she may be having alcohol withdrawal. She has been in the hospital about a week. Unclear how long since last drink prior to admission. 12/22/2016 felt to be due to alcohol withdrawal. Sedated at present. 12/23/16 patient is sedated. Will start withdrawing sedation for weaning trials. Current Visit: Yes (5) History of alcohol abuse Status: Acute Assessment and plan: Apparently the cause of her pancreatitis. Again watching for evidence of alcohol withdrawal. Current Visit: Yes Specialty Discharge - Follow Up or Referrals Follow up with: Lux Perez MD [Physician] -
[2016-12-23] MEDS: LINEZOLID INJ 600 MG in PREMIX 1 EACH IV SCH ×2 (07:11→18:12)
[2016-12-23] MEDS: ALBUTEROL 2.5 MG/3 ML NEB RESP TX SCH ×2 (07:49→19:34)
[2016-12-23 07:51] LABS: Pt O2 Delivery Device Ventilator
[2016-12-23 07:52] LABS: ABG Base Excess 1.7 MMOL/L (-2.5-2.5); ABG HCO3 25.9 MMOL/L (20-26); ABG Oxygen Saturation 95.2 % (95-100); ABG PH 7.424 (7.35-7.45); ABG PO2 76.7 MM HG (80-95)
[2016-12-23] MEDS: FOLIC ACID 1 MG TABLET PO SCH (09:27)
[2016-12-23] MEDS: MULTIVITAMIN (CENTRUM) TABLET PO SCH (09:27)
[2016-12-23] MEDS: THIAMINE 100 MG TABLET PO SCH (09:27)
[2016-12-23] MEDS: PANTOPRAZOLE 40 MG VIAL IV SCH (09:28)
[2016-12-23] MEDS: PROPRANOLOL 20 MG TABLET PO SCH ×3 (09:28→21:38)
[2016-12-23] MEDS: POLYETHYLENE GLYCOL POWDER 17 GM PACK PO SCH (09:28)
[2016-12-23] MEDS: SODIUM CHLORIDE 0.9% 1,000 ML IV SCH (09:33)
--- NOTE | 2016-12-23 10:23 | XRay Report ---
Portable chest Date: 12/23/2016 Clinical history: Ventilator, respiratory failure Comparison: 12/22/2016 Technique: Portable AP sitting chest Findings: Stable cardiomegaly and supportive devices. Persistent diffuse parenchymal findings with small pleural effusions. Stable mediastinum and osseous structures. Impression: Persistent diffuse infiltration/atelectasis/edema with findings minimally improved on the right and minimal progressive on the left. Small left pleural effusion. Stable supportive devices. PROCEDURE INTERPRETED AT [facility] DEPARTMENT OF RADIOLOGY Final Report Signed by: Dr. Christianne Carter
--- NOTE | 2016-12-23 12:29 | Hospitalist Progress Note ---
Assessment and Plan (1) Delirium Status: Acute Assessment and plan: The patient appears to have delirium on account of metabolic encephalopathy and possible withdrawal phenomenon. The patient is presently on optimal therapy for withdrawal with Ativan infusion and is not exhibiting any tremulousness. I recommend continuing present care and begin weaning infusion tomorrow. Current Visit: Yes (2) Fibromyalgia Status: Chronic Current Visit: No (3) Acute on chronic pancreatitis Status: Acute Current Visit: No Hospitalist: Subjective Interval history: The patient is resting quietly on ventilator. Weaning trials have begun and she is tolerating them reasonably well. The patient was initially transferred from the floor down to intensive care unit due to agitation and delirium. This was likely related to withdrawal and is improved on benzodiazepine infusion. The patient is now ready to begin weaning the ventilator Exam - Constitutional Vitals: Period Temp Pulse Resp BP Sys/Rodriguez Pulse Ox Last 24 Hr 97.7 F-98.9 F 62-82 14-38 98-134/52-97 95-100 General appearance: no acute distress - Respiratory Respiratory exam: Present: clear to auscultation bilaterally - Cardiovascular Cardiovascular exam: Present: regular rate and rhythm - GI/Abdominal GI/Abdominal exam: Present: hypoactive bowel sounds Results - Labs CBC & BMP: 12/23/16 04:14 12/23/16 04:14 Lab Results: I have reviewed the past 24 hour labs Specialty Discharge - Follow Up or Referrals Follow up with: Lux Perez MD [Physician] -
--- NOTE | 2016-12-23 12:43 | Event Note ---
Remains intubated and sedated. Afebrile vital signs stable. Abdomen is soft mildly distended. NG tube output still fairly high. Wound VAC in place with a good seal. Labs okay. Plan: Continue NG tube to low wall suction.
[2016-12-23] MEDS ORDERED: POTASSIUM CHLORIDE RIDER 100 ML IV ONE (13:09)
[2016-12-23] MEDS ORDERED: POTASSIUM CHLORIDE RIDER 10 MEQ in PREMIX 1 EACH IV PRN (13:33)
[2016-12-23] MEDS ORDERED: POTASSIUM CHLORIDE RIDER 20 MEQ in PREMIX 1 EACH IV PRN (13:33)
[2016-12-23] MEDS: PHENYLEPHRINE DRIP 40 MG/250 ML PREMIX IV SCH (16:29)
[2016-12-23] MEDS: [UNRECOGNIZED DRUG - OTHER] IV SCH (18:13)
[2016-12-23] MEDS: TRACE ELEMENTS IV SCH (18:13)
[2016-12-23] MEDS: ELECTROLYTE IV SCH (18:13)
[2016-12-23] MEDS: MULTIVITAMIN IV SCH (18:13)
[2016-12-23] MEDS: amLODIPine 10 MG TABLET PO SCH (21:39)
[2016-12-23] MEDS: DOXEPIN 25 MG CAPSULE PO SCH (21:55)
[2016-12-23] MEDS: MIRTAZAPINE 30 MG TABLET PO SCH (21:55)
[2016-12-23] MEDS: ATORVASTATIN 10 MG TABLET PO SCH (21:55)
[2016-12-23] MEDS: QUEtiapine 100 MG TABLET PO SCH (21:55)
[2016-12-24] MEDS: PROPOFOL 1,000 MG/100 ML BOTTLE IV SCH ×5 (01:10→20:54)
[2016-12-24] MEDS: INSULIN LISPRO 100 UNIT/ML SUBCUT SCH ×4 (01:51→17:32)
[2016-12-24] MEDS: METHOCARBAMOL INJ 500 MG in SODIUM CHLORIDE 0.9% 100 ML IV SCH ×3 (02:16→17:12)
[2016-12-24 03:12] LABS: ABG HCO3 27.1 MMOL/L (20-26); ABG Oxygen Saturation 98.5 % (95-100); ABG PCO2 41.2 MM HG (35-48); ABG PH 7.432 (7.35-7.45); ABG TCO2 25.5 MMOL/L (23-27); Allen Test Positive; Pt O2 Delivery Device Ventilator
[2016-12-24] MEDS: LORazepam INJ 40 MG in DEXTROSE 5% 30 ML IV SCH ×3 (04:12→17:56)
[2016-12-24 05:19] LABS: Basophils % 0.1 % (0.0-0.8); Eosinophils # 0.3 10*3/uL (0.0-0.87); Hematocrit 25.6 VOL% (35.7-47.0); Hemoglobin 8.4 GM/DL (12.0-16.0); Immature Granulocytes % 6.4 %; Immature Granulocytes Absolute 0.51 #; Lymphocytes # 1.3 10*3/uL (1.4-4.0); Lymphocytes % 16.6 % (21.3-54.2); Mean Corpuscular HGB Conc 32.8 GM/DL (32-36); Mean Corpuscular Hemoglobin 30 PG (27-34); Mean Corpuscular Volume 92.1 FL (87-102); Mean Platelet Volume 10.9 FL (9.6-12.0); Monocytes # 0.4 10*3/uL (0.11-0.8); Monocytes % 4.7 % (1.7-12.7); Neutrophils # 5.5 10*3/uL (1.4-7.4); Neutrophils % 68.2 % (38.7-73.9); Platelet Count 396 T/CUMM (130-400); Red Blood Count 2.78 MC/CUMM (3.8-5.5); Red Cell Distribution Width 17.5 % (9.3-17.3)
[2016-12-24 05:50] LABS: Band Neutrophils 3 % (0-10); Eosinophils 3 % (0-10); Hypochromasia 1+; Lymphocytes 14 % (20-55); Microcytosis Slight; Nucleated Red Blood Cells 1 (0-5); Ovalocytes Slight; Platelet Estimate Adequate; Segmented Neutrophils 77 % (50-85); Total Cells Counted 100
[2016-12-24 05:52] LABS: Calcium 7.5 MG/DL (8.5-10.1); Osmolality,Calculated 287.7 MOS/KG (273-304); Potassium 3.9 MMOL/L (3.5-5.1)
[2016-12-24 05:57] LABS: Magnesium 2.6 MG/DL (1.8-2.4); Phosphorous 2.3 MG/DL (2.5-4.9); Prealbumin 8.5 MG/DL (20-40)
[2016-12-24] MEDS: LINEZOLID INJ 600 MG in PREMIX 1 EACH IV SCH ×2 (06:16→18:02)
--- NOTE | 2016-12-24 06:43 | Pulmonology Progress Note ---
Pulmonary - PN: Subj Interval history: This 56-year-old lady had surgery for a pancreatic pseudocyst. She developed respiratory failure and is on the ventilator. She has bilateral infiltrates and today's looks a little worse on the right side. ABGs acceptable. Apparently was having some symptoms of alcohol withdrawal. At the present time she is sedated so no symptoms of that now 12/23/2016 O2 sats look a little better. Chest x-ray show some improvement. ABGs are pending. Will adjust ventilator and start CPAP if tolerated. 12/24/16 ABGs okay. Start CPAP trials. Exam (Progress Note) - Constitutional Vitals: Period Temp Pulse Resp BP Sys/Rodriguez Pulse Ox Last 24 Hr 97.5 F-99.6 F 64-79 16-38 103-142/55-86 96-100 Exam: Patient is sedated. Vital signs are normal. Pupils react to light. Orotracheal tube in place. Neck is supple no bruits. Chest shows some rhonchi bilaterally. Heart normal rate rhythm no murmurs. Abdomen soft bandaged no bowel sounds. Extremities no clubbing cyanosis or edema. Little change from yesterday. Results - Labs CBC & BMP: 12/24/16 04:46 12/24/16 04:46 Lab Results: I have reviewed the past 24 hour labs - Diagnostic Findings Procedure: Chest x-ray: image reviewed by me (X-ray improved less interstitial edema.) Assessment and Plan (1) Pancreatic pseudocyst Status: Acute Assessment and plan: Patient apparently has a long history of pancreatitis. She had surgery 8 days ago with a cyst drained in her stomach. She has had a wound VAC in place and had a wound culture positive for MRSE. Apparently has an ileus at present and is being fed with TPN. 12/22/2016 status post drainage of pseudocyst in the stomach. This happened a little over week ago. 12/23/2016 status post repair. 12/24/2016 status post repair with drainage in the stomach. Current Visit: Yes (2) Acute respiratory failure Status: Acute Assessment and plan: She has decreased level of consciousness and acute respiratory failure is on the ventilator. She was requiring a good bit of sedation for her delirium. I am concerned about the combination of Zyvox and SSRI meds. We will stop Cymbalta. May want to consider going to vancomycin since she has normal renal function. In any rate ABGs look okay with PO2 180 on 100% oxygen. Presently on 60%. Adjusting tidal volumes. Recheck ABGs. She has relatively mild but diffuse interstitial infiltrates. Could be ahead on fluid or this could be early ARDS. Will check BNP. 12/22/2016 ABGs marginal but acceptable. Not able to wean as yet. Probably has ARDS. 12/23/2016 clinical picture is that of ARDS. Adjusting ventilator and start weaning but it may take a few days. 12/24/2016 ARDS appears to be improving radiographically. Will try on weaning trials today. Current Visit: Yes (3) Abdominal wound infection Status: Acute Assessment and plan: Consider changing to vancomycin from Zyvox because of the multitude of medications that she is on and the possible interactions. 12/22/16 continuing antibiotics. 12/23/2016 grew 2 different kinds of staph from wound. On Zyvox. 12/24/2016 continuing antibiotics Current Visit: Yes (4) Delirium Status: Acute Assessment and plan: Thought that she may be having alcohol withdrawal. She has been in the hospital about a week. Unclear how long since last drink prior to admission. 12/22/2016 felt to be due to alcohol withdrawal. Sedated at present. 12/23/16 patient is sedated. Will start withdrawing sedation for weaning trials. 12/24/2016 check mental status when sedation is held. Current Visit: Yes (5) History of alcohol abuse Status: Acute Assessment and plan: Apparently the cause of her pancreatitis. Again watching for evidence of alcohol withdrawal. Current Visit: Yes Specialty Discharge - Follow Up or Referrals Follow up with: Lux Perez MD [Physician] -
[2016-12-24] MEDS: ALBUTEROL 2.5 MG/3 ML NEB RESP TX SCH ×2 (07:14→19:35)
--- NOTE | 2016-12-24 08:09 | XRay Report ---
History is respiratory failure ventilator management The heart is mildly enlarged. ET tube tip remains at T3-T4 There remains [id number] diffuse bilateral reticulonodular and patchy infiltrates with mild improvement in the interval. Mildly more focal consolidation retrocardiac left base is mildly improved as well Impression: Mild improvement described above PROCEDURE INTERPRETED AT [facility] DEPARTMENT OF RADIOLOGY Final Report Signed by: Dr. Diana Ovalle
--- NOTE | 2016-12-24 08:29 | Event Note ---
General Surgery Progress Note Chief complaint This patient is a 56-year-old woman admitted following laparotomy with cyst gastrostomy on 12/13/2016 Interval history The patient was intubated on Saturday after her transfer to the ICU for desaturation and respiratory distress. She was treated as alcohol withdrawal and delirium tremens over the weekend with Ativan drip. She has stabilized over the weekend and her workup on transfer to the ICU was negative for any underlying etiology of her decompensation and the current diagnosis is alcohol withdrawal. She is having low output from her NG tube and she is having bowel movements. Her hemoglobin is relatively stable but has gone down some over the last 24 hours. Her electrolytes are stable. Physical exam Patient is afebrile with normal vital signs Patient is sedated but wakes up and follows commands when sedation is turned down. Her chest is clear Heart is regular Wound VAC in place with unremarkable drainage. No erythema around incision.. Bowel sounds are hypoactive. WILMER drain is serosanguineous. Labs Cultures reveal sensitivity to vancomycin with 2 different strains returned Other labs reviewed and as above Imaging Start tube feeds today Continue alcohol withdrawal treatment with Ativan drip while on ventilator. Patient will be placed on protocol for Ativan administration after she is extubated and slowly wean off this. Repeat labs tomorrow Change wound VAC today
[2016-12-24] MEDS: SODIUM CHLORIDE 0.9% 1,000 ML IV SCH (09:17)
[2016-12-24] MEDS: ENOXAPARIN 40 MG/0.4 ML SYRINGE SUBCUT SCH (09:55)
[2016-12-24] MEDS: THIAMINE 100 MG TABLET PO SCH (09:55)
[2016-12-24] MEDS: PROPRANOLOL 20 MG TABLET PO SCH ×3 (09:55→20:48)
[2016-12-24] MEDS: POLYETHYLENE GLYCOL POWDER 17 GM PACK PO SCH (09:55)
[2016-12-24] MEDS: PANTOPRAZOLE 40 MG VIAL IV SCH (09:55)
[2016-12-24] MEDS: MULTIVITAMIN (CENTRUM) TABLET PO SCH (09:55)
[2016-12-24] MEDS: FOLIC ACID 1 MG TABLET PO SCH (09:55)
--- NOTE | 2016-12-24 10:24 | Hospitalist Progress Note ---
Assessment and Plan (1) Acute on chronic pancreatitis Status: Acute Assessment and plan: resolved, hopefully tube feeding soon, cont TPN, thiamine Current Visit: No (2) Pancreatic pseudocyst Status: Acute Assessment and plan: s/p lap with cyst gastrostomy Current Visit: Yes (3) Delirium tremens Status: Acute Assessment and plan: ativan drip Current Visit: Yes (4) Fibromyalgia Status: Chronic Assessment and plan: cont cymbalta Current Visit: No (5) Depression Status: Chronic Assessment and plan: cymbalta po bid Current Visit: No Hospitalist: Subjective Interval history: Patient still intubated and requiring excessive sedation. Patient went into full DTs. She sounds a little wet today. Exam - Constitutional Vitals: Period Temp Pulse Resp BP Sys/Rodriguez Pulse Ox Last 24 Hr 97.5 F-99.6 F 64-77 14-25 103-142/55-86 97-100 Exam: Heart Rate-[RRR] Lungs-[bilateral crackles] GI-[+bs soft, NT] Ext-[1+ edema] Neuro sedated and intubated psych cannot evaluate due to sedation General [no acute distress] Results - Labs CBC & BMP: 12/24/16 04:46 12/24/16 04:46 Lab Results: I have reviewed the past 24 hour labs Labs: Stool is negative for C. difficile, wound culture growing staph epi and staph mitis - Diagnostic Findings Procedure: Chest x-ray: report reviewed by me (Bilateral infiltrates) Specialty Discharge - Follow Up or Referrals Follow up with: Lux Perez MD [Physician] -
[2016-12-24] MEDS: THIAMINE 200 MG/2 ML VIAL IV SCH (10:43)
[2016-12-24] MEDS: POTASSIUM CHLORIDE 20 MEQ/15 ML UDCUP PO SCH (12:46)
[2016-12-24] MEDS: FUROSEMIDE 20 MG/2 ML VIAL IV SCH (16:55)
[2016-12-24] MEDS: TRACE ELEMENTS IV SCH (16:57)
[2016-12-24] MEDS: [UNRECOGNIZED DRUG - OTHER] IV SCH (16:57)
[2016-12-24] MEDS: ELECTROLYTE IV SCH (16:57)
[2016-12-24] MEDS: MULTIVITAMIN IV SCH (16:57)
[2016-12-24] MEDS: ATORVASTATIN 10 MG TABLET PO SCH (20:48)
[2016-12-24] MEDS: amLODIPine 10 MG TABLET PO SCH (20:48)
[2016-12-24] MEDS: MIRTAZAPINE 30 MG TABLET PO SCH (20:48)
[2016-12-24] MEDS: QUEtiapine 100 MG TABLET PO SCH (20:48)
[2016-12-25] MEDS: LORazepam INJ 40 MG in DEXTROSE 5% 30 ML IV SCH ×2 (00:04→10:17)
[2016-12-25] MEDS: INSULIN LISPRO 100 UNIT/ML SUBCUT SCH ×5 (00:16→23:50)
[2016-12-25] MEDS: METHOCARBAMOL INJ 500 MG in SODIUM CHLORIDE 0.9% 100 ML IV SCH ×3 (01:11→17:15)
[2016-12-25] MEDS: PROPOFOL 1,000 MG/100 ML BOTTLE IV SCH ×4 (01:12→21:34)
[2016-12-25] MEDS: HYDROmorphone 2 MG/1 ML VIAL IV PRN ×2 (02:45→11:30)
[2016-12-25 03:17] LABS: ABG Base Excess 4.7 MMOL/L (-2.5-2.5); ABG HCO3 29.6 MMOL/L (20-26); ABG Oxygen Saturation 97.5 % (95-100); ABG PCO2 46.1 MM HG (35-48); ABG PH 7.426 (7.35-7.45); ABG TCO2 31.1 MMOL/L (23-27); Allen Test Positive; Pt O2 Delivery Device Ventilator
[2016-12-25 04:09] LABS: Basophils % 0.4 % (0.0-0.8); Eosinophils # 0.3 10*3/uL (0.0-0.87); Hematocrit 28.6 VOL% (35.7-47.0); Hemoglobin 9.1 GM/DL (12.0-16.0); Immature Granulocytes % 4.8 %; Immature Granulocytes Absolute 0.38 #; Lymphocytes % 13.1 % (21.3-54.2); Mean Corpuscular HGB Conc 31.8 GM/DL (32-36); Mean Corpuscular Hemoglobin 30 PG (27-34); Mean Corpuscular Volume 93.5 FL (87-102); Mean Platelet Volume 10.7 FL (9.6-12.0); Monocytes # 0.4 10*3/uL (0.11-0.8); Monocytes % 5.3 % (1.7-12.7); NRBC # 0.02 10*3/uL; Neutrophils # 5.7 10*3/uL (1.4-7.4); Neutrophils % 72.4 % (38.7-73.9); Platelet Count 430 T/CUMM (130-400); Red Blood Count 3.06 MC/CUMM (3.8-5.5); Red Cell Distribution Width 17.6 % (9.3-17.3); White Blood Count 7.9 T/CUMM (4-12)
[2016-12-25 04:39] LABS: Albumin 1.4 G/DL (3.4-5.0); Bilirubin,Total 0.5 MG/DL (0.2-1.0); Calcium 8.1 MG/DL (8.5-10.1); Potassium 4.3 MMOL/L (3.5-5.1); Total Protein 5.2 G/DL (6.4-8.3)
[2016-12-25 05:01] LABS: Hypochromasia 1+; Platelet Estimate Increased; Target Cells Slight
[2016-12-25 05:02] LABS: Microcytosis Slight
--- NOTE | 2016-12-25 07:09 | Pulmonology Progress Note ---
Pulmonary - PN: Subj Interval history: This 56-year-old lady had surgery for a pancreatic pseudocyst. She developed respiratory failure and is on the ventilator. She has bilateral infiltrates and today's looks a little worse on the right side. ABGs acceptable. Apparently was having some symptoms of alcohol withdrawal. At the present time she is sedated so no symptoms of that now 12/23/2016 O2 sats look a little better. Chest x-ray show some improvement. ABGs are pending. Will adjust ventilator and start CPAP if tolerated. 12/24/16 ABGs okay. Start CPAP trials. 12/25/2016 again ABGs look okay but patient is not doing well with CPAP. Still having to keep her on sedation to keep her from fighting the ventilator during those. Her liver tests were normal except for an elevated alk phos on admission. I will try her on Haldol and see if we can reduce other sedation. Exam (Progress Note) - Constitutional Vitals: Period Temp Pulse Resp BP Sys/Rodriguez Pulse Ox Last 24 Hr 97.4 F-98.9 F 63-92 12-32 78-138/43-76 94-100 Exam: Patient is sedated. Vital signs are normal. Pupils react to light. Orotracheal tube in place. Neck is supple no bruits. Chest shows some rhonchi bilaterally. Heart normal rate rhythm no murmurs. Abdomen soft bandaged no bowel sounds. Extremities no clubbing cyanosis or edema. Results - Labs CBC & BMP: 12/25/16 03:26 12/25/16 03:26 Lab Results: I have reviewed the past 24 hour labs - Diagnostic Findings Procedure: Chest x-ray: image reviewed by me (Small left pleural effusion. Interstitial infiltrates bilaterally. ET tube good position) Assessment and Plan (1) Pancreatic pseudocyst Status: Acute Assessment and plan: Patient apparently has a long history of pancreatitis. She had surgery 8 days ago with a cyst drained in her stomach. She has had a wound VAC in place and had a wound culture positive for MRSE. Apparently has an ileus at present and is being fed with TPN. 12/22/2016 status post drainage of pseudocyst in the stomach. This happened a little over week ago. 12/23/2016 status post repair. 12/24/2016 status post repair with drainage in the stomach. 12/25/2016 status post repair. Current Visit: Yes (2) Acute respiratory failure Status: Acute Assessment and plan: She has decreased level of consciousness and acute respiratory failure is on the ventilator. She was requiring a good bit of sedation for her delirium. I am concerned about the combination of Zyvox and SSRI meds. We will stop Cymbalta. May want to consider going to vancomycin since she has normal renal function. In any rate ABGs look okay with PO2 180 on 100% oxygen. Presently on 60%. Adjusting tidal volumes. Recheck ABGs. She has relatively mild but diffuse interstitial infiltrates. Could be ahead on fluid or this could be early ARDS. Will check BNP. 12/22/2016 ABGs marginal but acceptable. Not able to wean as yet. Probably has ARDS. 12/23/2016 clinical picture is that of ARDS. Adjusting ventilator and start weaning but it may take a few days. 12/24/2016 ARDS appears to be improving radiographically. Will try on weaning trials today. 12/25/2016 ARDS post abdominal surgery. Difficulty weaning because of problems with fighting the ventilator when sedation is withdrawn. Presently on propofol and Ativan. Will add Haldol and see if we can reduce the propofol. Current Visit: Yes (3) Abdominal wound infection Status: Acute Assessment and plan: Consider changing to vancomycin from Zyvox because of the multitude of medications that she is on and the possible interactions. 12/22/16 continuing antibiotics. 12/23/2016 grew 2 different kinds of staph from wound. On Zyvox. 12/24/2016 continuing antibiotics 12/25/2016 continuing antibiotics. Current Visit: Yes (4) Delirium Status: Acute Assessment and plan: Thought that she may be having alcohol withdrawal. She has been in the hospital about a week. Unclear how long since last drink prior to admission. 12/22/2016 felt to be due to alcohol withdrawal. Sedated at present. 12/23/16 patient is sedated. Will start withdrawing sedation for weaning trials. 12/24/2016 check mental status when sedation is held. 12/25/16 she becomes combative when sedation is held. Add Haldol. Current Visit: Yes (5) History of alcohol abuse Status: Acute Assessment and plan: Apparently the cause of her pancreatitis. Again watching for evidence of alcohol withdrawal. Current Visit: Yes Specialty Discharge - Follow Up or Referrals Follow up with: Lux Perez MD [Physician] -
[2016-12-25] MEDS: ALBUTEROL 2.5 MG/3 ML NEB RESP TX SCH ×2 (07:19→19:28)
--- NOTE | 2016-12-25 07:29 | Event Note ---
General Surgery Progress Note Chief complaint This patient is a 56-year-old woman admitted following laparotomy with cyst gastrostomy on 12/13/2016 Interval history No events overnight. Patient is tolerating tube feeds. No bowel movement or flatus yet. Still very agitated when the Ativan is turned down. Physical exam Patient is afebrile with normal vital signs Patient is sedated but wakes up when sedation is off Her chest is clear Heart is regular Wound VAC in place with unremarkable drainage. No erythema around incision. Bowel sounds are hypoactive. WILMER drain is serosanguineous. Wound yesterday looked clean Labs reviewed, hemoglobin stable Imaging advance tube feeds to goal and wean TPN Continue alcohol withdrawal treatment with Ativan drip while on ventilator. Patient will be placed on protocol for Ativan administration after she is extubated and slowly wean off this. Repeat labs tomorrow
--- NOTE | 2016-12-25 07:36 | XRay Report ---
History is ventilator management Comparison 12/24/2016 The heart is enlarged. ET tube tip is at T3. The other support device is unchanged There are continued moderate diffuse bilateral hazy pulmonary opacities with mildly more focal consolidation in the retrocardiac left lung base. Small underlying effusion suspected. There has been no significant change attending for differences in positioning. Impression: Little change in diffuse bilateral infiltrates versus edema and more focal left lower lobe consolidation PROCEDURE INTERPRETED AT [facility] DEPARTMENT OF RADIOLOGY Final Report Signed by: Dr. Diana Ovalle
[2016-12-25] MEDS: LINEZOLID INJ 600 MG in PREMIX 1 EACH IV SCH ×2 (08:51→20:06)
[2016-12-25] MEDS: PANTOPRAZOLE 40 MG VIAL IV SCH (08:51)
[2016-12-25] MEDS: HALOPERIDOL 5 MG/ML AMP IV SCH ×2 (08:52→20:06)
[2016-12-25] MEDS: THIAMINE 200 MG/2 ML VIAL IV SCH (08:52)
[2016-12-25] MEDS: MULTIVITAMIN (CENTRUM) TABLET PO SCH (08:53)
[2016-12-25] MEDS: PROPRANOLOL 20 MG TABLET PO SCH ×3 (08:53→20:06)
[2016-12-25] MEDS: FUROSEMIDE 20 MG/2 ML VIAL IV SCH ×2 (08:53→15:43)
[2016-12-25] MEDS: ENOXAPARIN 40 MG/0.4 ML SYRINGE SUBCUT SCH (08:53)
[2016-12-25] MEDS: POTASSIUM CHLORIDE 20 MEQ/15 ML UDCUP PO SCH (08:53)
[2016-12-25] MEDS: FOLIC ACID 1 MG TABLET PO SCH (08:53)
[2016-12-25] MEDS: POLYETHYLENE GLYCOL POWDER 17 GM PACK PO SCH (08:54)
--- NOTE | 2016-12-25 15:05 | Hospitalist Progress Note ---
Assessment and Plan (1) Acute on chronic pancreatitis Status: Acute Assessment and plan: cont TPN, s/p cyst gastrostomy, cont thiamine IV Current Visit: No (2) Pancreatic pseudocyst Status: Acute Assessment and plan: s/p lap with cyst gastrostomy Current Visit: Yes (3) Delirium tremens Status: Acute Assessment and plan: resolved, tranxene tid, wean off ativan drip Current Visit: Yes (4) Fibromyalgia Status: Chronic Assessment and plan: unable to take oral meds Current Visit: No (5) Depression Status: Chronic Assessment and plan: unable to take oral meds at this time Current Visit: No Hospitalist: Subjective Interval history: Had a 20 minute discussion with patient's . Patient has suffered from addiction to alcohol and drugs for almost 10 years now. He did not realize the extent of her alcoholism until he would find bottles that she was drinking vodka approximately a pint every other day. She has been to rehab before without success. I told him that until she really wants to get better she will not get better. Patient has exceeded her time which requires Ativan for DTs. I will wean her off Ativan with Tranxene. Exam - Constitutional Vitals: Period Temp Pulse Resp BP Sys/Rodriguez Pulse Ox Last 24 Hr 97.4 F-98.9 F 63-92 12-32 78-125/43-72 94-100 Exam: Heart Rate-[RRR] Lungs-[clear GI-[+bs soft, NT] Ext-[no edema] Neuro sedated and intubated psych cannot evaluate due to sedation General [no acute distress] Results - Labs CBC & BMP: 12/25/16 03:26 12/25/16 03:26 Lab Results: I have reviewed the past 24 hour labs Labs: Wound cultures growing staph epi and Streptococcus mitis, stools negative for C. difficile. - Diagnostic Findings Procedure: Chest x-ray: report reviewed by me (Diffuse infiltrates and edema ) Specialty Discharge - Follow Up or Referrals Follow up with: Lux Perez MD [Physician] -
[2016-12-25] MEDS: HALOPERIDOL 5 MG/ML AMP IV PRN (15:44)
[2016-12-25] MEDS: FUROSEMIDE 40 MG/4 ML VIAL IV SCH (15:54)
[2016-12-25] MEDS: ATORVASTATIN 10 MG TABLET PO SCH (20:06)
[2016-12-25] MEDS: amLODIPine 10 MG TABLET PO SCH (20:06)
[2016-12-25] MEDS: QUEtiapine 100 MG TABLET PO SCH (20:06)
[2016-12-25] MEDS: MIRTAZAPINE 30 MG TABLET PO SCH (20:06)
[2016-12-25] MEDS: CLORAZEPATE 7.5 MG TABLET PO SCH (20:07)
[2016-12-26] MEDS: METHOCARBAMOL INJ 500 MG in SODIUM CHLORIDE 0.9% 100 ML IV SCH ×3 (02:17→17:45)
[2016-12-26] MEDS: PROPOFOL 1,000 MG/100 ML BOTTLE IV SCH ×5 (02:18→21:17)
[2016-12-26 03:32] LABS: ABG Base Excess 8.2 MMOL/L (-2.5-2.5); ABG HCO3 32.4 MMOL/L (20-26); ABG Oxygen Saturation 98.6 % (95-100); ABG PCO2 43.7 MM HG (35-48); ABG PH 7.488 (7.35-7.45); ABG PO2 136.1 MM HG (80-95); ABG TCO2 33.7 MMOL/L (23-27); Allen Test Positive; Pt O2 Delivery Device Ventilator
[2016-12-26] MEDS: INSULIN LISPRO 100 UNIT/ML SUBCUT SCH ×3 (05:19→18:00)
[2016-12-26 05:21] LABS: Albumin 1.6 G/DL (3.4-5.0); Bilirubin,Total 0.4 MG/DL (0.2-1.0); Calcium 8.2 MG/DL (8.5-10.1); Magnesium 2.5 MG/DL (1.8-2.4); Osmolality,Calculated 279.4 MOS/KG (273-304); Total Protein 5.9 G/DL (6.4-8.3)
[2016-12-26 05:25] LABS: Basophils % 0.5 % (0.0-0.8); Eosinophils # 0.3 10*3/uL (0.0-0.87); Eosinophils % 3.7 % (0.00-10.9); Hematocrit 29.1 VOL% (35.7-47.0); Hemoglobin 9.5 GM/DL (12.0-16.0); Immature Granulocytes % 1.7 %; Immature Granulocytes Absolute 0.14 #; Lymphocytes # 1.2 10*3/uL (1.4-4.0); Lymphocytes % 14.4 % (21.3-54.2); Mean Corpuscular HGB Conc 32.6 GM/DL (32-36); Mean Corpuscular Hemoglobin 30 PG (27-34); Mean Corpuscular Volume 91.5 FL (87-102); Mean Platelet Volume 10.7 FL (9.6-12.0); Monocytes # 0.4 10*3/uL (0.11-0.8); Monocytes % 5.4 % (1.7-12.7); Neutrophils % 74.3 % (38.7-73.9); Platelet Count 455 T/CUMM (130-400); Red Blood Count 3.18 MC/CUMM (3.8-5.5); White Blood Count 8.1 T/CUMM (4-12)
[2016-12-26 05:52] LABS: Band Neutrophils 2 % (0-10); Eosinophils 1 % (0-10); Hypochromasia 1+; Lymphocytes 14 % (20-55); Microcytosis Slight; Platelet Estimate Increased; Segmented Neutrophils 79 % (50-85); Total Cells Counted 100
--- NOTE | 2016-12-26 06:19 | Pulmonology Progress Note ---
Pulmonary - PN: Subj Interval history: The patient is a 56-year-old white lady that had laboratory lap for pancreatic pseudocyst. Postop she has been on the ventilator with bilateral infiltrates and respiratory distress. Patient may have had some alcohol withdrawal. She has been a little calmer and starting to do CPAP better. She has been fairly stable on the ventilator. Exam (Progress Note) - Constitutional Vitals: Period Temp Pulse Resp BP Sys/Rodriguez Pulse Ox Last 24 Hr 97.3 F-98.5 F 69-83 14-29 90-124/53-73 96-100 General appearance: normal weight, no acute distress (Patient is comfortable on the ventilator at present.) - Head Head exam: Present: normal inspection, normocephalic - Eye Eye exam: Present: EOMI. Absent: scleral icterus Pupils: Present: DORIS - ENT ENT exam: Present: other (ET tube is in good position) - Neck Neck exam: Present: normal inspection. Absent: lymphadenopathy, thyromegaly - Respiratory Respiratory exam: Present: rhonchi (She has fairly good breath sounds with minimal rhonchi.). Absent: accessory muscle use - Cardiovascular Cardiovascular exam: Present: regular rate and rhythm. Absent: gallop, systolic murmur - GI/Abdominal GI/Abdominal exam: Present: distended, soft, other (Abdomen is bandaged at this point) - Extremities Exam Extremities exam: Absent: calf tenderness, edema - Neurological Exam Neurological exam: Present: altered (Patient is sedated now but does respond fairly well.) - Psychiatric Psychiatric exam: Absent: agitated, anxious - Skin Skin exam: Present: warm, dry Results - Labs CBC & BMP: 12/26/16 04:50 12/26/16 04:50 Labs: PO2 is 136 with a PCO2 of 43 and a pH of 7.48 - Diagnostic Findings Procedure: Chest x-ray: image reviewed by me, report reviewed by me (Chest x- ray still shows mild interstitial changes bilaterally.) Assessment and Plan (1) Pancreatic pseudocyst Status: Acute Assessment and plan: Patient is postop surgery for pancreatic pseudocyst. She is still on the ventilator. Current Visit: Yes (2) Acute respiratory failure Status: Acute Assessment and plan: The patient has respiratory distress and continues to require some sedation. She is starting to do CPAP a little better. Current Visit: Yes (3) Abdominal wound infection Status: Acute Assessment and plan: Patient is getting antibiotics for a mild wound infection. Current Visit: Yes (4) Delirium Status: Acute Assessment and plan: Patient's medications have been adjusted and she does seem to be a little calmer. Current Visit: Yes (5) History of alcohol abuse Status: Acute Assessment and plan: Patient has been having problems with alcohol withdrawal but is improving now. Current Visit: Yes Specialty Discharge - Follow Up or Referrals Follow up with: Lux Perez MD [Physician] -
[2016-12-26] MEDS: ALBUTEROL 2.5 MG/3 ML NEB RESP TX SCH ×2 (07:17→19:58)
[2016-12-26] MEDS: LINEZOLID INJ 600 MG in PREMIX 1 EACH IV SCH (08:00)
[2016-12-26] MEDS: FUROSEMIDE 40 MG/4 ML VIAL IV SCH ×2 (08:00→19:22)
[2016-12-26] MEDS: HALOPERIDOL 5 MG/ML AMP IV SCH ×2 (08:00→21:20)
[2016-12-26] MEDS: PANTOPRAZOLE 40 MG VIAL IV SCH (08:00)
--- NOTE | 2016-12-26 08:01 | XRay Report ---
History is ventilator management Comparison 12/25/2016 The heart remains enlarged. ET tube tip remains at T4 The there has been mild improvement with continued mild diffuse bilateral pulmonary infiltrates versus edema There has also been improvement of more focal consolidation retrocardiac left base. There is improved visualization left diaphragm. Small left effusion remains Impression: Mild improvement described above PROCEDURE INTERPRETED AT [facility] DEPARTMENT OF RADIOLOGY Final Report Signed by: Dr. Diana Ovalle
--- NOTE | 2016-12-26 08:01 | Event Note ---
General Surgery Progress Note Chief complaint This patient is a 56-year-old woman admitted following laparotomy with cyst gastrostomy on 12/13/2016 complicated by alcohol withdrawal and delirium tremens treated with intubation for respiratory distress and Ativan infusion in the ICU Interval history No events overnight. Patient is tolerating tube feeds with no significant residuals. She starting to wake up and her Ativan drip has been weaned off. She is still on propofol. She wakes up and follows some commands. Physical exam Patient is afebrile with normal vital signs Patient is sedated but wakes up when sedation is off Her chest is clear Heart is regular Wound VAC in place with unremarkable drainage. No erythema around incision. Bowel sounds are hypoactive. WILMER drain is serosanguineous. Labs reviewed, hemoglobin stable Imaging Chest x-ray is unchanged Assessment and plan Continue tube feeds at goal rate Discontinue IV fluids and TPN Start oral Librium with taper for alcohol withdrawal Continue propofol as needed Change wound VAC today Continue DVT chemoprophylaxis with Lovenox
[2016-12-26] MEDS: PROPRANOLOL 20 MG TABLET PO SCH ×3 (09:00→21:24)
[2016-12-26] MEDS: POLYETHYLENE GLYCOL POWDER 17 GM PACK PO SCH (09:00)
[2016-12-26] MEDS: POTASSIUM CHLORIDE 20 MEQ/15 ML UDCUP PO SCH (09:00)
[2016-12-26] MEDS ORDERED: chlordiazePOXIDE 10 MG CAPSULE PO SCH (09:00)
[2016-12-26] MEDS: MULTIVITAMIN (CENTRUM) TABLET PO SCH (09:00)
[2016-12-26] MEDS: FOLIC ACID 1 MG TABLET PO SCH (09:00)
[2016-12-26] MEDS: ENOXAPARIN 40 MG/0.4 ML SYRINGE SUBCUT SCH (09:00)
[2016-12-26] MEDS: CLORAZEPATE 7.5 MG TABLET PO SCH ×3 (09:00→21:24)
[2016-12-26] MEDS: THIAMINE 200 MG/2 ML VIAL IV SCH (09:00)
[2016-12-26] MEDS ORDERED: BISACODYL 10 MG SUPP RECTAL PRN (11:43)
--- NOTE | 2016-12-26 11:45 | Hospitalist Progress Note ---
Assessment and Plan (1) Acute on chronic pancreatitis Status: Acute Assessment and plan: cont TPN, s/p cyst gastrostomy, cont thiamine IV, no bowel movements Current Visit: No (2) Pancreatic pseudocyst Status: Acute Assessment and plan: s/p lap with cyst gastrostomy, pain controlled, wound growing stap epi and strep mitis, cont zyvox, will ask dr. Monae to see Current Visit: Yes (3) Delirium tremens Status: Acute Assessment and plan: resolved, cont tranxene tid Current Visit: Yes (4) Fibromyalgia Status: Chronic Assessment and plan: cont Current Visit: No (5) Depression Status: Chronic Assessment and plan: restart cymbalta Current Visit: No Hospitalist: Subjective Interval history: We will continue attempts to wean off the ventilator. She is off the Ativan and on Tranxene 3 times a day. Patient reports no pain. She is able to follow commands. Exam - Constitutional Vitals: Period Temp Pulse Resp BP Sys/Rodriguez Pulse Ox Last 24 Hr 97.3 F-98.5 F 70-91 10-26 91-158/17- 96-100 Exam: Heart Rate-[RRR] Lungs-[clear GI-[+bs soft, NT] Ext-[no edema] Neuro alert and following commands psych normal mood and affect General [no acute distress] Results - Labs CBC & BMP: 12/26/16 04:50 12/26/16 04:50 Lab Results: I have reviewed the past 24 hour labs Labs: Wound culture growing staph epi and Streptococcus mitis - Diagnostic Findings Procedure: Chest x-ray: report reviewed by me (Improvement in volume overload) Specialty Discharge - Follow Up or Referrals Follow up with: Lux Perez MD [Physician] -
[2016-12-26] MEDS: amLODIPine 10 MG TABLET PO SCH (12:30)
[2016-12-26] MEDS: LACTULOSE 20 GM/30 ML UDCUP PO SCH ×2 (13:00→21:25)
[2016-12-26] MEDS: HALOPERIDOL 5 MG/ML AMP IV PRN (14:00)
--- NOTE | 2016-12-26 15:49 | Infectious Disease Consult ---
Assessment and Plan (1) Abdominal wound infection Status: Acute Assessment and plan: Abdominal wound infection with Streptococcus mitis and MRSE. No associated sepsis as patient is afebrile and has no leukocytosis. No surrounding cellulitis. Recommendations: 1. Discontinue linezolid since the patient is on several drugs which can interact with it increasing risk for serotonin syndrome, including duloxetine 2. Start vancomycin which will cover both organisms isolated. Consult pharmacy to assist with dosing and monitoring 3. Wound care. Will defer to surgeons how long they want to continue antibiotic therapy for. Suspect prolonged antibiotic therapy will not be necessary. Thank you very much for the consult. I will sign off. Call again.. Discussed with Dr. Mendez. Current Visit: Yes (2) Acute respiratory failure Status: Acute Current Visit: Yes (3) Delirium tremens Status: Acute Current Visit: Yes (4) History of alcohol abuse Status: Acute Current Visit: Yes (5) Pancreatic pseudocyst Status: Acute Current Visit: Yes History of Present Illness Chief complaint: Assist with antibiotics History of present illness: Ms. Crum is a 56 year old female admitted on 13 December for resection of symptomatic pancreatic pseudocyst. The patient's hospital course was complicated by alcohol withdrawal with delirium tremens and she ended up being intubated about 5 days ago and has been on the vent since. She required IV Ativan for a while. Never became hemodynamically unstable and so no pressors were if needed. She has not been febrile. Cultures of the cyst fluid I am told came up positive for Streptococcus mitis and MRSE. Looking at her chart though it looks as if the culture was from her abdominal wound rather than the cyst fluid. She is been put on linezolid and I am asked to assist with antibiotic therapy. Patient has not had any fever. Home Medications Medication Instructions Recorded Confirmed Type Atorvastatin [Lipitor] 10 mg PO QPM 05/14/16 12/13/16 History Duloxetine HCl [Cymbalta] 120 mg PO DAILY 05/14/16 12/13/16 History Loratadine [Claritin] 10 mg PO DAILY PRN 05/14/16 12/13/16 History Mirtazapine 30 mg PO BEDTIME 05/14/16 12/13/16 History QUEtiapine [SEROquel] 100 mg PO BEDTIME 05/14/16 12/13/16 History Tizanidine HCl 2 mg PO TID PRN 05/14/16 12/13/16 History Albuterol Sulfate [Proair HFA] 2 puffs PO BID PRN 09/26/16 12/13/16 History Beclomethasone 40 Mcg Inhaler 2 puffs PO BID 09/26/16 12/13/16 History [Qvar 40 Mcg] Doxepin [SINEquan] 100 mg PO BEDTIME 09/26/16 12/13/16 History Fluticasone 50 Mcg Nasal [place] 1 spray BOTH NARES DAILY PRN 09/26/16 12/13/16 History [Flonase Nasal [place]] Propranolol Tab [Inderal Tab] 20 mg PO TID 09/26/16 12/13/16 History hydroCHLOROthiazide 12.5 mg PO QAM 09/26/16 12/13/16 History [Hydrochlorothiazide] Nicotine 21 mg/24 Hr Patch 1 patch TRANSDERM DAILY PRN #0 10/03/16 12/13/16 Rx [Nicoderm CQ 21 mg/24 hr Patch] patch amLODIPine [Norvasc] 10 mg PO QPM tablet 10/03/16 12/13/16 Rx Pantoprazole Tab [Protonix Tab] 40 mg PO QAM 10/07/16 12/13/16 History Folic Acid Tab 1 mg PO DAILY tablet 10/12/16 12/13/16 Rx Multivitamin (Centrum) [Centrum 1 tablet PO DAILY tablet 10/12/16 12/13/16 Rx Tab] Thiamine Tab [Vitamin B1 Tab] 100 mg PO DAILY tablet 10/12/16 12/13/16 Rx HYDROcodone/ACETAMIN 10-325 [[place] 1 tablet PO Q4-6H PRN 10/23/16 12/13/16 History 10-325] Ondansetron Tab [Zofran Tab] 4 mg PO Q4H PRN 12/13/16 12/13/16 History Allergies Allergy/AdvReac Type Severity Reaction Status Date / Time Penicillins Allergy Severe HIVES Verified 10/23/16 19:21 Sulfa (Sulfonamide Allergy Severe HIVES Verified 10/23/16 19:21 Antibiotics) Erythromycin Base Allergy Intermediate HIVES Verified 10/23/16 19:21 ROS unobtainable: due to endotracheal tube, due to mental status Medical,Surgical,& Family Hx - Medical History Cardio: History of: Hypertension (medication) Psychological: History of: Anxiety Disorders, Depression Neurology: No history of: Seizures Endocrine: History of: Dyslipidemia Rheumatology: History of;: Fibromyalgia Respiratory: History of: Asthma, Bronchitis, Obstructive Sleep Apnea (Does not wear C-pap), Pneumonia Genitourinary: History of: Kidney Stones Gastrointestinal: History of: GERD (medication), Hemorrhoids, Pancreatitis ( pancreatic cyst) Musculoskeletal: History of: Back/Neck Problems (Neck) Hematology: No history of: Blood Transfusion Reaction Reproductive: No history of: Abnormal Pap Smear, Breast Cancer Other: No history of: Anesthesia Reactions - Surgical History Cardiac Surgeries: Patient Denies: Cardiac Catheterization Thoracic Surgeries: Patient denies;: Organ Transplant, Lobectomy Neurologic Surgeries: Patient denies: Neurologic Surgery Abdominal Surgeries: Surgical HX of: Abdominal Surgery (open cyst gastrostomy Dr. Perez), Appendectomy, Colonoscopy, EGD Patient denies: Cholecystectomy, Gastric Bypass Surgery, Hernia Repair Reproductive Surgeries: Surgical HX of;: Gynecologic Surgery, Hysterectomy Patient denies;: Breast Surgery, Section Orthopedic Surgeries: Surgical HX of;: Orthopedic Surgery (LEFT shoulder rotator cuff repair) - Family History Family History: Reports;: Family Cancer, Family Hypertension Denies;: Family Anesthesia Reaction, Family Diabetes, Family Heart Disease, Family Psychiatric Problems, Family Stroke - Social History Smoking Status: Current every day smoker Frequency of Alcohol Use: Rarely Type of Drug Use: None Infectious Disease Exam H&P - Constitutional Vitals: Vital Signs Temp Pulse Resp BP Pulse Ox 97 F L 68 25 H 108/65 97 12/26/16 12:00 12/26/16 13:00 12/26/16 13:45 12/26/16 13:00 12/26/16 13:00 Intake and Output 12/25/16 12/26/16 12/26/16 23:59 07:59 15:59 Intake Total 695 / 695 465 / 465 1055 / 1055 Output Total 2335 / 2335 820 / 820 1810 / 1810 Balance -1640 / -1640 -355 / -355 -755 / -755 Intake: IV 555 / 555 305 / 305 505 / 505 Nutrilyte II 40 ml 0 / 0 Multivitamin Inj 10 ml Multitrace 5 Conc 1 ml In Aminosyn II 10% 1,100 ml In D30 700 ml In Water Sterile Inj 200 ml @ 85 mls/hr IV .Q24H GALILEO Rx#: [id number] Zyvox Inj 600 mg In 300 / 300 300 / 300 Premix 1 Each @ 300 mls/ hr IV Q12H GALILEO Rx#: [id number] Robaxin Inj 500 mg In Ns 105 / 105 105 / 105 105 / 105 100 ml @ 200 mls/hr IV Q8H GALILEO Rx#:[id number] DIPRIVAN 1,000 mg In 100 100 / 100 200 / 200 100 / 100 ml @ 10 MCG/KG/MIN 4.828 mls/hr IV TITRATE GALILEO Rx# :[id number] Oral 400 / 400 Tube Feeding Supplement 30 / 30 Tube Feeding Flush 140 / 140 160 / 160 120 / 120 Output: Drainage 35 / 35 10 / 10 Abdomen WILMER#1 35 / 35 0 / 0 Wound Vac #1 0 / 0 10 / 10 Urine 2300 / 2300 810 / 810 1810 / 1810 Other: Tube Feeding 35 35 35 Voiding Method Indwelling Catheter Indwelling Catheter Indwelling Catheter # Bowel Movements 0 0 Weight 72.847 kg Patient Weight 12/26/16 23:59 Weight 72.847 kg Exam: General: Patient arousable and a bit agitated, did not follow commands HEENT: Mucous membranes pink and moist, anicteric acyanotic, DORIS, ET tube in situ Neck: Supple, no thyroid gland enlargement Respiratory system: Breath sounds vesicular, no crepitations or wheezes Cardiovascular: Normal S1 and S2, no murmurs appreciated Abdomen: Wound VAC to midline abdominal wound, she has percutaneous drain in situ, normal bowel sounds, soft nontender throughout, no organomegaly or mass appreciated Genitourinary: No suprapubic pain or bladder distention, clear urine from Melton catheter Extremities: no edema Skin: No rash Reports - Labs CBC & BMP: 12/26/16 04:50 12/26/16 04:50 Labs: Laboratory Results - last 24 hr 12/25/16 12/25/16 12/26/16 16:11 23:23 03:15 WBC RBC Hgb Hct MCV MCH MCHC RDW Plt Count MPV Neut % (Auto) Lymph % (Auto) [place] % (Auto) Eos % (Auto) Baso % (Auto) Neut # (Auto) Lymph # (Auto) [place] # (Auto) Eos # (Auto) Baso # (Auto) Total Counted Immature Gran % Nucleated RBC % Immature Gran # Segmented Neutrophils Band Neutrophils Lymphocytes Monocytes Eosinophils Nucleated RBCs # Platelet Estimate Hypochromasia Microcytosis Morphology Comment ABG pH 7.488 H ABG pCO2 43.7 ABG pO2 136.1 H ABG HCO3 32.4 H ABG Total CO2 33.7 H ABG O2 Saturation 98.6 ABG Base Excess 8.2 H FiO2 50.00 Sodium Potassium Chloride Carbon Dioxide Anion Gap BUN Creatinine GFR Calculation BUN/Creatinine Ratio Glucose POC Glucose 135 H 114 H Calculated Osmolality Calcium Magnesium Total Bilirubin AST ALT Alkaline Phosphatase Total Protein Albumin Globulin Albumin/Globulin Ratio 12/26/16 12/26/16 12/26/16 04:50 04:50 05:20 WBC 8.1 RBC 3.18 L Hgb 9.5 L Hct 29.1 L MCV 91.5 MCH 30 MCHC 32.6 RDW 17.0 Plt Count 455 H MPV 10.7 Neut % (Auto) 74.3 H Lymph % (Auto) 14.4 L [place] % (Auto) 5.4 Eos % (Auto) 3.7 Baso % (Auto) 0.5 Neut # (Auto) 6.0 Lymph # (Auto) 1.2 L [place] # (Auto) 0.4 Eos # (Auto) 0.3 Baso # (Auto) 0.0 Total Counted 100 Immature Gran % 1.7 Nucleated RBC % 0.0 Immature Gran # 0.14 Segmented Neutrophils 79 Band Neutrophils 2 Lymphocytes 14 L Monocytes 4 Eosinophils 1 Nucleated RBCs # 0.00 Platelet Estimate Increased Hypochromasia 1+ Microcytosis Slight Morphology Comment ABG pH ABG pCO2 ABG pO2 ABG HCO3 ABG Total CO2 ABG O2 Saturation ABG Base Excess FiO2 Sodium 140 Potassium 4.0 Chloride 103 Carbon Dioxide 32 Anion Gap 9.0 BUN 15 Creatinine 0.40 L GFR Calculation 119 BUN/Creatinine Ratio 37.00 H Glucose 103 POC Glucose 118 H Calculated Osmolality 279.4 Calcium 8.2 L Magnesium 2.5 H Total Bilirubin 0.40 AST 77 H ALT 41 Alkaline Phosphatase 309 H Total Protein 5.9 L Albumin 1.6 L Globulin 4.3 H Albumin/Globulin Ratio 0.3 L 12/26/16 11:20 WBC RBC Hgb Hct MCV MCH MCHC RDW Plt Count MPV Neut % (Auto) Lymph % (Auto) [place] % (Auto) Eos % (Auto) Baso % (Auto) Neut # (Auto) Lymph # (Auto) [place] # (Auto) Eos # (Auto) Baso # (Auto) Total Counted Immature Gran % Nucleated RBC % Immature Gran # Segmented Neutrophils Band Neutrophils Lymphocytes Monocytes Eosinophils Nucleated RBCs # Platelet Estimate Hypochromasia Microcytosis Morphology Comment ABG pH ABG pCO2 ABG pO2 ABG HCO3 ABG Total CO2 ABG O2 Saturation ABG Base Excess FiO2 Sodium Potassium Chloride Carbon Dioxide Anion Gap BUN Creatinine GFR Calculation BUN/Creatinine Ratio Glucose POC Glucose 112 H Calculated Osmolality Calcium Magnesium Total Bilirubin AST ALT Alkaline Phosphatase Total Protein Albumin Globulin Albumin/Globulin Ratio - Diagnostic Findings Procedure: CT Abdomen and Pelvis: report reviewed by me Specialty Discharge - Follow Up or Referrals Follow up with: Lux Perez MD [Physician] -
[2016-12-26] MEDS: VANCOMYCIN INJ 1,000 MG in SODIUM CHLORIDE 0.9% 250 ML IV SCH (17:00)
[2016-12-26] MEDS: ATORVASTATIN 10 MG TABLET PO SCH (21:24)
[2016-12-26] MEDS: QUEtiapine 100 MG TABLET PO SCH (21:24)
[2016-12-26] MEDS: MIRTAZAPINE 30 MG TABLET PO SCH (21:24)
[2016-12-26] MEDS: DULoxetine 30 MG CAPSULE PO SCH (21:25)
[2016-12-27] MEDS: PROPOFOL 1,000 MG/100 ML BOTTLE IV SCH ×6 (00:39→22:00)
[2016-12-27] MEDS: INSULIN LISPRO 100 UNIT/ML SUBCUT SCH ×4 (00:47→18:00)
[2016-12-27] MEDS: VANCOMYCIN INJ 1,000 MG in SODIUM CHLORIDE 0.9% 250 ML IV SCH ×3 (01:44→17:30)
[2016-12-27] MEDS: METHOCARBAMOL INJ 500 MG in SODIUM CHLORIDE 0.9% 100 ML IV SCH ×3 (01:49→18:00)
[2016-12-27 03:57] LABS: Allen Test Positive; Pt O2 Delivery Device Ventilator
[2016-12-27 04:08] LABS: ABG Base Excess 8.4 MMOL/L (-2.5-2.5); ABG HCO3 32.2 MMOL/L (20-26); ABG Oxygen Saturation 99.5 % (95-100); ABG PCO2 40.2 MM HG (35-48); ABG PH 7.512 (7.35-7.45); ABG PO2 83.9 MM HG (80-95); ABG TCO2 29.5 MMOL/L (23-27)
[2016-12-27 04:23] LABS: Albumin 1.8 G/DL (3.4-5.0); Bilirubin,Total 0.5 MG/DL (0.2-1.0); Calcium 8.5 MG/DL (8.5-10.1); Potassium 3.7 MMOL/L (3.5-5.1); Total Protein 6.2 G/DL (6.4-8.3)
[2016-12-27 04:53] LABS: Magnesium 2.8 MG/DL (1.8-2.4); Phosphorous 3.6 MG/DL (2.5-4.9)
[2016-12-27] MEDS: ALBUTEROL 2.5 MG/3 ML NEB RESP TX SCH ×2 (06:44→20:39)
[2016-12-27] MEDS ORDERED: LACTULOSE 20 GM/30 ML UDCUP PO PRN (07:12)
--- NOTE | 2016-12-27 07:40 | XRay Report ---
History is respiratory failure ventilator management Comparison 12/26/2016 The heart is enlarged. ET tube tip is at T4. There is been mild improvement with mild continued diffuse bilateral infiltrates versus edema. Remains mildly more focal consolidation and effusion obscuring left diaphragm Impression: Mild improvement described above PROCEDURE INTERPRETED AT [facility] DEPARTMENT OF RADIOLOGY Final Report Signed by: Dr. Diana Ovalle
[2016-12-27] MEDS: HALOPERIDOL 5 MG/ML AMP IV SCH ×2 (08:00→21:00)
[2016-12-27] MEDS: FUROSEMIDE 40 MG/4 ML VIAL IV SCH ×2 (08:00→16:00)
[2016-12-27] MEDS: PANTOPRAZOLE 40 MG VIAL IV SCH (08:00)
[2016-12-27] MEDS: THIAMINE 200 MG/2 ML VIAL IV SCH (08:00)
--- NOTE | 2016-12-27 08:08 | Pulmonology Progress Note ---
Pulmonary - PN: Subj Interval history: The patient is a 56-year-old white lady that had exploratory lap for pancreatic pseudocyst. Postop she has been on the ventilator with bilateral infiltrates and respiratory distress. Patient may have had some alcohol withdrawal. She has been a little calmer and starting to do CPAP better. She completed stage III and CPAP trials. She looks more alert and calmer now. Her chest x-ray is improving. She should be able to come off the ventilator soon. Exam (Progress Note) - Constitutional Vitals: Period Temp Pulse Resp BP Sys/Rodriguez Pulse Ox Last 24 Hr 97 F-99.1 F 63-91 11-31 91-158/47-71 96-100 Exam: General appearance: normal weight, no acute distress (Patient is comfortable on the ventilator at present. She responds easily.) - Head Head exam: Present: normal inspection, normocephalic - Eye Eye exam: Present: EOMI. Absent: scleral icterus Pupils: Present: DORIS - ENT ENT exam: Present: other (ET tube is in good position) - Neck Neck exam: Present: normal inspection. Absent: lymphadenopathy, thyromegaly - Respiratory Respiratory exam: Present: Her lungs have fairly good breath sounds bilaterally and she is moving air well with only minimal rhonchi. - Cardiovascular Cardiovascular exam: Present: regular rate and rhythm. Absent: gallop, systolic murmur - GI/Abdominal GI/Abdominal exam: Present: distended, soft, other (Abdomen is bandaged at this point) - Extremities Exam Extremities exam: Absent: calf tenderness, edema - Neurological Exam Neurological exam: Present: altered (Patient is sedated now but does respond fairly well.) - Psychiatric Psychiatric exam: Absent: agitated, anxious - Skin Skin exam: Present: warm, dry Results - Labs CBC & BMP: 12/26/16 04:50 12/27/16 03:37 Labs: PO2 is 83 with a PCO2 of 40 and pH of 7.51 - Diagnostic Findings Procedure: Chest x-ray: image reviewed by me, report reviewed by me (Chest x- ray has less infiltrates now.) Assessment and Plan (1) Pancreatic pseudocyst Status: Acute Assessment and plan: Patient is postop surgery for pancreatic pseudocyst. She is still on the ventilator. Her abdomen is doing better. Current Visit: Yes (2) Acute respiratory failure Status: Acute Assessment and plan: The patient has done much better on CPAP and looks calmer. Her chest x-ray is improving. She should be able to come off the ventilator soon. Current Visit: Yes (3) Abdominal wound infection Status: Acute Assessment and plan: Patient is getting antibiotics for a mild wound infection. Her abdomen seems to be doing better. Current Visit: Yes (4) Delirium Status: Acute Assessment and plan: Patient's medications have been adjusted and she does seem to be a little calmer. Current Visit: Yes (5) History of alcohol abuse Status: Acute Assessment and plan: Patient has been having problems with alcohol withdrawal but is improving now. She does not appear agitated now. Current Visit: Yes Specialty Discharge - Follow Up or Referrals Follow up with: Lux Perez MD [Physician] -
--- NOTE | 2016-12-27 08:55 | Hospitalist Progress Note ---
Assessment and Plan (1) Acute on chronic pancreatitis Status: Acute Assessment and plan: cont TPN, s/p cyst gastrostomy, cont thiamine IV, improving now having bowel movements Current Visit: No (2) Pancreatic pseudocyst Status: Acute Assessment and plan: s/p lap with cyst gastrostomy, pain controlled, wound growing stap epi and strep mitis, Dr. Monae recommends vancomycin for the next 10 days. Current Visit: Yes (3) Delirium tremens Status: Acute Assessment and plan: resolved, cont tranxene tid Current Visit: Yes (4) Fibromyalgia Status: Chronic Assessment and plan: restart cymbalta when extubated Current Visit: No (5) Depression Status: Chronic Assessment and plan: restart cymbalta when extubated Current Visit: No Hospitalist: Subjective Interval history: Patient did 8 hours on CPAP yesterday. Spoke with Dr. Reyes today and he is hoping to extubate her tomorrow. She is following all commands but she is a little bit more sleepy today. Spoke with Dr. Perez he is ready for her to go to LTAC. Exam - Constitutional Vitals: Period Temp Pulse Resp BP Sys/Rodriguez Pulse Ox Last 24 Hr 97 F-99.1 F 63-91 11-31 91-158/47-71 96-100 Exam: Heart Rate-[RRR] Lungs-[clear GI-[+bs soft, NT] Ext-[no edema] Neuro alert and following commands psych normal mood and affect General [no acute distress] Results - Labs CBC & BMP: 12/26/16 04:50 12/27/16 03:37 Lab Results: I have reviewed the past 24 hour labs Labs: Wound culture growing staph epidermidis and Streptococcus mitis Specialty Discharge - Follow Up or Referrals Follow up with: Lux Perez MD [Physician] -
[2016-12-27] MEDS: FOLIC ACID 1 MG TABLET PO SCH (09:00)
[2016-12-27] MEDS: MULTIVITAMIN (CENTRUM) TABLET PO SCH (09:00)
[2016-12-27] MEDS: POLYETHYLENE GLYCOL POWDER 17 GM PACK PO SCH (09:00)
[2016-12-27] MEDS: ENOXAPARIN 40 MG/0.4 ML SYRINGE SUBCUT SCH (09:00)
[2016-12-27] MEDS: tiZANidine 4 MG TABLET PO PRN (09:00)
[2016-12-27] MEDS: PROPRANOLOL 20 MG TABLET PO SCH ×3 (09:00→21:00)
[2016-12-27] MEDS: POTASSIUM CHLORIDE 20 MEQ/15 ML UDCUP PO SCH (09:00)
[2016-12-27] MEDS: CLORAZEPATE 7.5 MG TABLET PO SCH ×3 (09:00→21:00)
[2016-12-27] MEDS: HYDROmorphone 2 MG/1 ML VIAL IV PRN ×2 (12:15→18:00)
--- NOTE | 2016-12-27 12:40 | Event Note ---
General Surgery Progress Note Chief complaint This patient is a 56-year-old woman admitted following laparotomy with cyst gastrostomy on 12/13/2016 complicated by alcohol withdrawal and delirium tremens treated with intubation for respiratory distress and Ativan infusion in the ICU Interval history The patient is stable. There are no new changes. We are awaiting approval for LTAC. Physical exam Patient is afebrile with normal vital signs Patient is sedated but wakes up when sedation is off Her chest is clear Heart is regular Wound VAC in place with unremarkable drainage. No erythema around incision. Bowel sounds are hypoactive. WILMER drain is serosanguineous. Labs reviewed Imaging Chest x-ray is unchanged Assessment and plan Continue tube feeds at goal rate Continue oral Librium with taper for alcohol withdrawal Continue propofol as needed Change wound VAC tomorrow Continue DVT chemoprophylaxis with Lovenox
[2016-12-27] MEDS: HALOPERIDOL 5 MG/ML AMP IV PRN (16:00)
[2016-12-27] MEDS: amLODIPine 10 MG TABLET PO SCH (21:00)
[2016-12-27] MEDS: ATORVASTATIN 10 MG TABLET PO SCH (21:00)
[2016-12-27] MEDS: QUEtiapine 100 MG TABLET PO SCH (21:00)
[2016-12-27] MEDS: MIRTAZAPINE 30 MG TABLET PO SCH (21:00)
[2016-12-28] MEDS: INSULIN LISPRO 100 UNIT/ML SUBCUT SCH ×3 (00:16→12:25)
[2016-12-28] MEDS: VANCOMYCIN INJ 1,000 MG in SODIUM CHLORIDE 0.9% 250 ML IV SCH ×3 (01:50→16:59)
[2016-12-28] MEDS: METHOCARBAMOL INJ 500 MG in SODIUM CHLORIDE 0.9% 100 ML IV SCH ×3 (01:56→17:56)
[2016-12-28] MEDS: PROPOFOL 1,000 MG/100 ML BOTTLE IV SCH (01:58)
[2016-12-28] MEDS: HYDROmorphone 2 MG/1 ML VIAL IV PRN ×3 (02:34→20:14)
[2016-12-28 03:24] LABS: ABG Base Excess 6.7 MMOL/L (-2.5-2.5); ABG HCO3 30.6 MMOL/L (20-26); ABG Oxygen Saturation 97.3 % (95-100); ABG PH 7.445 (7.35-7.45); ABG PO2 89.3 MM HG (80-95); ABG TCO2 29.3 MMOL/L (23-27); Allen Test Positive; Pt O2 Delivery Device Ventilator
[2016-12-28 05:29] LABS: Basophils % 0.4 % (0.0-0.8); Eosinophils # 0.3 10*3/uL (0.0-0.87); Eosinophils % 4.7 % (0.00-10.9); Hematocrit 27.2 VOL% (35.7-47.0); Hemoglobin 8.7 GM/DL (12.0-16.0); Immature Granulocytes Absolute 0.07 #; Lymphocytes # 0.9 10*3/uL (1.4-4.0); Mean Corpuscular Hemoglobin 30 PG (27-34); Mean Corpuscular Volume 94.8 FL (87-102); Mean Platelet Volume 10.4 FL (9.6-12.0); Monocytes # 0.5 10*3/uL (0.11-0.8); Monocytes % 6.3 % (1.7-12.7); Neutrophils # 5.5 10*3/uL (1.4-7.4); Neutrophils % 75.6 % (38.7-73.9); Platelet Count 430 T/CUMM (130-400); Red Blood Count 2.87 MC/CUMM (3.8-5.5); Red Cell Distribution Width 16.5 % (9.3-17.3); White Blood Count 7.3 T/CUMM (4-12)
[2016-12-28 06:03] LABS: Hypochromasia 1+; Microcytosis 1+; Platelet Estimate Increased
[2016-12-28 06:24] LABS: Magnesium 2.9 MG/DL (1.8-2.4); Osmolality,Calculated 282.3 MOS/KG (273-304); Potassium 3.9 MMOL/L (3.5-5.1)
[2016-12-28] MEDS: ALBUTEROL 2.5 MG/3 ML NEB RESP TX SCH ×2 (07:00→19:07)
[2016-12-28] MEDS: FUROSEMIDE 40 MG/4 ML VIAL IV SCH (07:58)
--- NOTE | 2016-12-28 07:59 | Pulmonology Progress Note ---
Pulmonary - PN: Subj Interval history: The patient is a 56-year-old white lady that had exploratory lap for pancreatic pseudocyst. Postop she has been on the ventilator with bilateral infiltrates and respiratory distress. Patient may have had some alcohol withdrawal. She has been a little calmer and starting to do CPAP better. She did CPAP for 12 hours yesterday. She still requires some sedation but is better. Her chest x- ray is improved. Her ABGs are adequate. She should be able to do okay off the ventilator. Exam (Progress Note) - Constitutional Vitals: Period Temp Pulse Resp BP Sys/Rodriguez Pulse Ox Last 24 Hr 97.4 F-98.9 F 64-81 10-36 78-126/45-76 95-100 Exam: General appearance: normal weight, no acute distress (Patient is comfortable on the ventilator at present. She responds easily.) - Head Head exam: Present: normal inspection, normocephalic - Eye Eye exam: Present: EOMI. Absent: scleral icterus Pupils: Present: DORIS - ENT ENT exam: Present: other (ET tube is in good position) - Neck Neck exam: Present: normal inspection. Absent: lymphadenopathy, thyromegaly - Respiratory Respiratory exam: Present: Her lungs have fairly good breath sounds bilaterally and her lungs are reasonably clear now. - Cardiovascular Cardiovascular exam: Present: regular rate and rhythm. Absent: gallop, systolic murmur - GI/Abdominal GI/Abdominal exam: Present: distended, soft, other (Abdomen is bandaged at this point) - Extremities Exam Extremities exam: Absent: calf tenderness, edema - Neurological Exam Neurological exam: Present: altered (Patient is sedated now but does respond fairly well.) - Psychiatric Psychiatric exam: Absent: agitated, anxious - Skin Skin exam: Present: warm, dry Results - Labs CBC & BMP: 12/28/16 04:30 12/28/16 04:30 Labs: Her PO2 is 89 with a PCO2 of 46 and a pH of 7.44 - Diagnostic Findings Procedure: Chest x-ray: image reviewed by me, report reviewed by me (Chest x- ray has minimal atelectasis in the left base.) Assessment and Plan (1) Pancreatic pseudocyst Status: Acute Assessment and plan: Patient is postop surgery for pancreatic pseudocyst. Her abdomen is doing better now. She still has some drains in place. She is tolerating feedings better. Current Visit: Yes (2) Acute respiratory failure Status: Acute Assessment and plan: The patient has done much better on CPAP and looks calmer. Her chest x-ray is improving. Overall she looks better and will try her off the ventilator. Current Visit: Yes (3) Abdominal wound infection Status: Acute Assessment and plan: Patient is getting antibiotics for a mild wound infection. Her abdomen seems to be doing better. Current Visit: Yes (4) Delirium Status: Acute Assessment and plan: Patient's medications have been adjusted and she does seem to be a little calmer. Hopefully she will do much better when she is off the ventilator Current Visit: Yes (5) History of alcohol abuse Status: Acute Assessment and plan: Patient has been having problems with alcohol withdrawal but is improving now. She does not appear agitated now. Current Visit: Yes Specialty Discharge - Follow Up or Referrals Follow up with: Lux Perez MD [Physician] -
--- NOTE | 2016-12-28 08:05 | XRay Report ---
XR chest 1V portable Indication: Intubated Comparison: Chest x-ray dated December 27, 2016 Technique: Single frontal view of the chest. Findings: Lines and tubes are stable in positioning. Continued cardiomegaly. Interval increased aeration of the lungs with improved atelectasis/consolidation within the left mid and lower lung. Mild left basilar atelectasis/consolidation remains with small left pleural fluid which appears improved. Visualized osseous and surrounding soft tissue structures appear grossly unchanged. IMPRESSION: As above. PROCEDURE INTERPRETED AT [facility] DEPARTMENT OF RADIOLOGY Final Report Signed by: Dr Jose Ayala
[2016-12-28] MEDS: THIAMINE 200 MG/2 ML VIAL IV SCH (10:59)
[2016-12-28] MEDS: PANTOPRAZOLE 40 MG VIAL IV SCH (10:59)
[2016-12-28] MEDS: ENOXAPARIN 40 MG/0.4 ML SYRINGE SUBCUT SCH (11:00)
[2016-12-28] MEDS: FOLIC ACID 1 MG TABLET PO SCH (11:01)
[2016-12-28] MEDS: MULTIVITAMIN (CENTRUM) TABLET PO SCH (11:01)
[2016-12-28] MEDS: CLORAZEPATE 7.5 MG TABLET PO SCH ×2 (11:01→20:16)
[2016-12-28] MEDS: PROPRANOLOL 20 MG TABLET PO SCH ×3 (11:01→20:16)
[2016-12-28] MEDS: POTASSIUM CHLORIDE 20 MEQ/15 ML UDCUP PO SCH (11:01)
[2016-12-28] MEDS: POLYETHYLENE GLYCOL POWDER 17 GM PACK PO SCH (11:02)
[2016-12-28] MEDS: HALOPERIDOL 5 MG/ML AMP IV SCH (11:02)
--- NOTE | 2016-12-28 11:25 | Event Note ---
General Surgery Progress Note Chief complaint This patient is a 56-year-old woman admitted following laparotomy with cyst gastrostomy on 12/13/2016 complicated by alcohol withdrawal and delirium tremens treated with intubation for respiratory distress and Ativan infusion in the ICU Interval history The patient was extubated just prior to my visit in her room this morning. She appears stable. Her labs are relatively unchanged. Her heart rate is normal and she is not febrile. Her wound VAC was changed today and the granulation tissue is improving. She has been tolerating tube feeds up until extubation. Physical exam Patient is afebrile with normal vital signs Patient is sedated but wakes up when sedation is off Her chest is clear Heart is regular Wound is clean with good granulation tissue Labs reviewed, stable Imaging Chest x-ray is unchanged Assessment and plan discontinue NG tube and start diet as tolerated today repeat labs in AM continue law catheter for today, remove in AM
[2016-12-28] MEDS ORDERED: SIMETHICONE CHEW 125 MG TABLET PO PRN (12:17)
[2016-12-28] MEDS: DULoxetine 30 MG CAPSULE PO SCH (12:44)
--- NOTE | 2016-12-28 14:27 | Hospitalist Progress Note ---
Assessment and Plan (1) Acute on chronic pancreatitis Status: Acute Assessment and plan: s/p cyst gastrostomy, cont thiamine, resolving Current Visit: No (2) Pancreatic pseudocyst Status: Acute Assessment and plan: s/p lap with cyst gastrostomy, Dr. Monae recommends vancomycin for the next 10 days. Current Visit: Yes (3) Delirium tremens Status: Acute Assessment and plan: resolved, cont tranxene tid Current Visit: Yes (4) Fibromyalgia Status: Chronic Assessment and plan: restart cymbalta Current Visit: No (5) Depression Status: Chronic Assessment and plan: restart cymbalta Current Visit: No Hospitalist: Subjective Interval history: Patient is having good bowel movements yesterday. She was extubated this morning and looks great. We will get her up and sit her in a chair and have physical therapy see her. She looks good tomorrow we will move her out of the unit. Exam - Constitutional Vitals: Period Temp Pulse Resp BP Sys/Rodriguez Pulse Ox Last 24 Hr 97.4 F-98.9 F 65-81 10-36 83-126/46-76 95-100 Exam: Heart Rate-[RRR] Lungs-[clear GI-[+bs soft, NT] Ext-[no edema] Neuro motor 5/5, alert and oriented times 3 psych normal mood and affect General [no acute distress] Results - Labs CBC & BMP: 12/28/16 04:30 12/28/16 04:30 Lab Results: I have reviewed the past 24 hour labs Specialty Discharge - Follow Up or Referrals Follow up with: Lux Perez MD [Physician] -
[2016-12-28] MEDS: PANTOPRAZOLE 40 MG TABLET PO SCH (14:34)
[2016-12-28] MEDS: QUEtiapine 100 MG TABLET PO SCH (20:15)
[2016-12-28] MEDS: tiZANidine 4 MG TABLET PO PRN (20:15)
[2016-12-28] MEDS: ATORVASTATIN 10 MG TABLET PO SCH (20:15)
[2016-12-28] MEDS: MIRTAZAPINE 30 MG TABLET PO SCH (20:16)
[2016-12-28] MEDS: amLODIPine 10 MG TABLET PO SCH (20:16)
[2016-12-29] MEDS: VANCOMYCIN INJ 1,000 MG in SODIUM CHLORIDE 0.9% 250 ML IV SCH ×3 (01:16→16:45)
[2016-12-29] MEDS: METHOCARBAMOL INJ 500 MG in SODIUM CHLORIDE 0.9% 100 ML IV SCH ×3 (01:18→17:58)
[2016-12-29] MEDS: HYDROmorphone 2 MG/1 ML VIAL IV PRN ×3 (04:39→18:43)
[2016-12-29 06:13] LABS: Basophils % 0.7 % (0.0-0.8); Eosinophils # 0.4 10*3/uL (0.0-0.87); Eosinophils % 6.3 % (0.00-10.9); Hematocrit 29.2 VOL% (35.7-47.0); Hemoglobin 9.4 GM/DL (12.0-16.0); Immature Granulocytes Absolute 0.06 #; Lymphocytes % 16.8 % (21.3-54.2); Mean Corpuscular HGB Conc 32.2 GM/DL (32-36); Mean Corpuscular Hemoglobin 30 PG (27-34); Mean Platelet Volume 10.4 FL (9.6-12.0); Monocytes # 0.5 10*3/uL (0.11-0.8); Monocytes % 9.2 % (1.7-12.7); Neutrophils # 3.9 10*3/uL (1.4-7.4); Platelet Count 447 T/CUMM (130-400); Red Blood Count 3.14 MC/CUMM (3.8-5.5); Red Cell Distribution Width 16.2 % (9.3-17.3); White Blood Count 5.9 T/CUMM (4-12)
[2016-12-29 06:48] LABS: Calcium 8.3 MG/DL (8.5-10.1); Magnesium 2.6 MG/DL (1.8-2.4); Osmolality,Calculated 282.1 MOS/KG (273-304); Potassium 3.8 MMOL/L (3.5-5.1)
[2016-12-29] MEDS: ALBUTEROL 2.5 MG/3 ML NEB RESP TX SCH ×2 (06:48→19:02)
--- NOTE | 2016-12-29 07:36 | Pulmonology Progress Note ---
Pulmonary - PN: Subj Interval history: The patient is a 56-year-old white lady that had exploratory lap for pancreatic pseudocyst. Postop she has been on the ventilator with bilateral infiltrates and respiratory distress. Patient may have had some alcohol withdrawal. She has been a little calmer and starting to do CPAP better. She did CPAP for 12 hours yesterday. Yesterday we extubated her and she is done well. She is alert and comfortable and in no distress now. She says her abdominal soreness is getting better. She is taking some liquids now. She is not having any shortness of breath and is able to cough okay. She is moving around a little better. She can move to a regular room now. Exam (Progress Note) - Constitutional Vitals: Period Temp Pulse Resp BP Sys/Rodriguez Pulse Ox Last 24 Hr 97.9 F-98.2 F 62-88 15-96 80-129/50-81 94-100 Exam: General appearance: normal weight, no acute distress (Patient is alert and talking and looks quite comfortable now.) - Head Head exam: Present: normal inspection, normocephalic - Eye Eye exam: Present: EOMI. Absent: scleral icterus Pupils: Present: DORIS - ENT ENT exam: Present: Unremarkable - Neck Neck exam: Present: normal inspection. Absent: lymphadenopathy, thyromegaly - Respiratory Respiratory exam: Present: Her lungs have fairly good breath sounds bilaterally and her lungs are reasonably clear now. - Cardiovascular Cardiovascular exam: Present: regular rate and rhythm. Absent: gallop, systolic murmur - GI/Abdominal GI/Abdominal exam: Present: distended, soft, other (Abdomen is bandaged at this point) - Extremities Exam Extremities exam: Absent: calf tenderness, edema, she had no signs of phlebitis - Neurological Exam Neurological exam: Present: She is alert and talking and moving her extremities well. - Psychiatric Psychiatric exam: Absent: agitated, anxious - Skin Skin exam: Present: warm, dry Results - Labs CBC & BMP: 12/29/16 05:03 12/29/16 05:03 Assessment and Plan (1) Pancreatic pseudocyst Status: Acute Assessment and plan: Patient is postop surgery for pancreatic pseudocyst. Her abdomen is doing better now. She still has some drains in place. She is tolerating feedings better. She is taking some liquids now. Current Visit: Yes (2) Acute respiratory failure Status: Acute Assessment and plan: The patient has improved nicely came off the ventilator well yesterday. She is not having any respiratory distress now. Current Visit: Yes (3) Abdominal wound infection Status: Acute Assessment and plan: Patient is getting antibiotics for a mild wound infection. Her abdomen seems to be doing better. Current Visit: Yes (4) Delirium Status: Acute Assessment and plan: Patient's medications have been adjusted and she does seem to be a little calmer. She is alert and looks quite comfortable now. Current Visit: Yes (5) History of alcohol abuse Status: Acute Assessment and plan: Patient has been having problems with alcohol withdrawal but is improving now. She does not appear agitated now. Current Visit: Yes Specialty Discharge - Follow Up or Referrals Follow up with: Lux Perez MD [Physician] -
[2016-12-29] MEDS ORDERED: MAGNESIUM SULF RIDER 4 GM in PREMIX 1 EACH IV PRN (08:48)
[2016-12-29] MEDS ORDERED: MAGNESIUM SULF RIDER 2 GM in PREMIX 1 EACH IV PRN (08:48)
[2016-12-29] MEDS: ENOXAPARIN 40 MG/0.4 ML SYRINGE SUBCUT SCH (09:49)
[2016-12-29] MEDS: DULoxetine 30 MG CAPSULE PO SCH (09:50)
[2016-12-29] MEDS: FOLIC ACID 1 MG TABLET PO SCH (09:51)
[2016-12-29] MEDS: POTASSIUM CHLORIDE 20 MEQ/15 ML UDCUP PO SCH (09:51)
[2016-12-29] MEDS: MULTIVITAMIN (CENTRUM) TABLET PO SCH (09:51)
[2016-12-29] MEDS: POLYETHYLENE GLYCOL POWDER 17 GM PACK PO SCH (09:51)
[2016-12-29] MEDS: CLORAZEPATE 7.5 MG TABLET PO SCH ×2 (09:51→20:55)
[2016-12-29] MEDS: PANTOPRAZOLE 40 MG TABLET PO SCH (09:51)
[2016-12-29] MEDS: PROPRANOLOL 20 MG TABLET PO SCH ×3 (09:51→20:55)
[2016-12-29] MEDS: THIAMINE 100 MG TABLET PO SCH (09:51)
--- NOTE | 2016-12-29 10:27 | Event Note ---
Patient was extubated yesterday. She is on a regular diet and tolerating it well. She is afebrile. She has been mildly hypotensive at times. She looks good sitting in bed. She has had 4 bowel movements. Wound VAC in place with good seal. Abdomen is soft with no significant tenderness appreciated. Melton is being removed and were transferring to the floor today.
--- NOTE | 2016-12-29 11:41 | Hospitalist Progress Note ---
Assessment and Plan (1) Acute on chronic pancreatitis Status: Acute Assessment and plan: s/p cyst gastrostomy,resolving Current Visit: No (2) Pancreatic pseudocyst Status: Acute Assessment and plan: s/p lap with cyst gastrostomy, cont vancomycin for the next 10 days. Current Visit: Yes (3) Delirium tremens Status: Acute Assessment and plan: cont tranxene, thiamine and folic acid Current Visit: Yes (4) Fibromyalgia Status: Chronic Assessment and plan: cont cymbalta Current Visit: No (5) Depression Status: Chronic Assessment and plan: cont cymbalta Current Visit: No Hospitalist: Subjective Interval history: Patient looks great today she will moved up to 3 E. She no longer requires a telemetry monitor. Exam - Constitutional Vitals: Period Temp Pulse Resp BP Sys/Rodriguez Pulse Ox Last 24 Hr 97.9 F-98.2 F 62-79 15-96 80-128/50-78 94-100 Exam: Heart Rate-[RRR] Lungs-[clear GI-[+bs soft, NT] Ext-[no edema] Neuro motor 5/5, alert and oriented times 3 psych normal mood and affect General [no acute distress] Results - Labs CBC & BMP: 12/29/16 05:03 12/29/16 05:03 Lab Results: I have reviewed the past 24 hour labs Specialty Discharge - Follow Up or Referrals Follow up with: Lux Perez MD [Physician] -
[2016-12-29] MEDS: QUEtiapine 100 MG TABLET PO SCH (20:55)
[2016-12-29] MEDS: ATORVASTATIN 10 MG TABLET PO SCH (20:56)
[2016-12-29] MEDS: amLODIPine 10 MG TABLET PO SCH (20:56)
[2016-12-29] MEDS: MIRTAZAPINE 30 MG TABLET PO SCH (20:56)
[2016-12-30] MEDS: VANCOMYCIN INJ 1,000 MG in SODIUM CHLORIDE 0.9% 250 ML IV SCH ×3 (00:55→16:00)
[2016-12-30] MEDS: METHOCARBAMOL INJ 500 MG in SODIUM CHLORIDE 0.9% 100 ML IV SCH ×3 (02:07→17:29)
[2016-12-30] MEDS: HYDROmorphone 2 MG/1 ML VIAL IV PRN ×3 (06:10→20:03)
[2016-12-30] MEDS: ALBUTEROL 2.5 MG/3 ML NEB RESP TX SCH ×2 (07:34→19:08)
[2016-12-30] MEDS: POTASSIUM CHLORIDE 20 MEQ/15 ML UDCUP PO SCH (09:13)
[2016-12-30] MEDS: PANTOPRAZOLE 40 MG TABLET PO SCH (09:14)
[2016-12-30] MEDS: THIAMINE 100 MG TABLET PO SCH (09:14)
[2016-12-30] MEDS: FOLIC ACID 1 MG TABLET PO SCH (09:14)
[2016-12-30] MEDS: MULTIVITAMIN (CENTRUM) TABLET PO SCH (09:14)
[2016-12-30] MEDS: PROPRANOLOL 20 MG TABLET PO SCH ×3 (09:14→20:01)
[2016-12-30] MEDS: CLORAZEPATE 7.5 MG TABLET PO SCH ×2 (09:14→20:02)
[2016-12-30] MEDS: DULoxetine 30 MG CAPSULE PO SCH (09:18)
[2016-12-30] MEDS: ENOXAPARIN 40 MG/0.4 ML SYRINGE SUBCUT SCH (09:18)
[2016-12-30] MEDS: POLYETHYLENE GLYCOL POWDER 17 GM PACK PO SCH (09:30)
--- NOTE | 2016-12-30 10:23 | Pulmonology Progress Note ---
Pulmonary - PN: Subj Interval history: The patient is a 56-year-old white lady that had exploratory lap for pancreatic pseudocyst. Postop she has been on the ventilator with bilateral infiltrates and respiratory distress. Patient may have had some alcohol withdrawal. She stayed on the ventilator for a while but was extubated a couple days ago. She moved to a regular room yesterday. She said she had a fairly good night. She is eating a little better and her abdomen is improved. She is trying to sit up and move around a little bit. She is not having any shortness of breath. She does cough a little bit but feels much better. Exam (Progress Note) - Constitutional Vitals: Period Temp Pulse Resp BP Sys/Rodriguez Pulse Ox Last 24 Hr 97.2 F-100.1 F 63-78 16-28 117-154/61-80 91-98 Exam: General appearance: normal weight, no acute distress (Patient is alert and talking and looks quite comfortable now. She is moving around better.) - Head Head exam: Present: normal inspection, normocephalic - Eye Eye exam: Present: EOMI. Absent: scleral icterus Pupils: Present: DORIS - ENT ENT exam: Present: Unremarkable - Neck Neck exam: Present: normal inspection. Absent: lymphadenopathy, thyromegaly - Respiratory Respiratory exam: Present: Her lungs have fairly good breath sounds bilaterally and her lungs are reasonably clear now. - Cardiovascular Cardiovascular exam: Present: regular rate and rhythm. Absent: gallop, systolic murmur - GI/Abdominal GI/Abdominal exam: Present: distended, soft, other (Abdomen is bandaged at this point) - Extremities Exam Extremities exam: Absent: calf tenderness, edema, she had no signs of phlebitis - Neurological Exam Neurological exam: Present: She is alert and talking and moving her extremities well. She looks stronger today. - Psychiatric Psychiatric exam: Absent: agitated, anxious - Skin Skin exam: Present: warm, dry Results - Labs CBC & BMP: 12/29/16 05:03 12/29/16 05:03 Assessment and Plan (1) Pancreatic pseudocyst Status: Acute Assessment and plan: Patient is postop surgery for pancreatic pseudocyst. Her abdomen is doing better now. She still has some drains in place. She is eating better and her abdomen is much improved. Current Visit: Yes (2) Acute respiratory failure Status: Acute Assessment and plan: The patient has improved nicely came off the ventilator well. She is coughing okay and breathing much better. Current Visit: Yes (3) Abdominal wound infection Status: Acute Assessment and plan: Patient is getting antibiotics for a mild wound infection. Her abdomen seems to be doing better. Current Visit: Yes (4) Delirium Status: Acute Assessment and plan: Patient's medications have been adjusted and she does seem to be a little calmer. She is talking appropriately now and looks comfortable. Current Visit: Yes (5) History of alcohol abuse Status: Acute Assessment and plan: Patient has been having problems with alcohol withdrawal but is improving now. She does not appear agitated now. Current Visit: Yes Specialty Discharge - Follow Up or Referrals Follow up with: Lux Perez MD [Physician] -
--- NOTE | 2016-12-30 11:09 | Event Note ---
Afebrile vital signs stable. Patient is tolerating a regular diet having bowel movements. Her abdomen is soft appropriately tender nondistended and wound VAC is in place. WILMER with minimal output. Plan for wound VAC change tomorrow and disposition following that.
[2016-12-30] MEDS: amLODIPine 10 MG TABLET PO SCH (20:00)
[2016-12-30] MEDS: MIRTAZAPINE 30 MG TABLET PO SCH (20:01)
[2016-12-30] MEDS: ATORVASTATIN 10 MG TABLET PO SCH (20:01)
[2016-12-30] MEDS: QUEtiapine 100 MG TABLET PO SCH (20:02)
[2016-12-31] MEDS: VANCOMYCIN INJ 1,000 MG in SODIUM CHLORIDE 0.9% 250 ML IV SCH ×2 (01:17→08:56)
[2016-12-31] MEDS: HYDROmorphone 2 MG/1 ML VIAL IV PRN ×5 (01:22→20:24)
[2016-12-31] MEDS: METHOCARBAMOL INJ 500 MG in SODIUM CHLORIDE 0.9% 100 ML IV SCH ×3 (02:32→18:17)
[2016-12-31] MEDS: ALBUTEROL 2.5 MG/3 ML NEB RESP TX SCH ×2 (06:49→20:06)
[2016-12-31] MEDS: DULoxetine 30 MG CAPSULE PO SCH (08:45)
[2016-12-31] MEDS: FOLIC ACID 1 MG TABLET PO SCH (08:46)
[2016-12-31] MEDS: THIAMINE 100 MG TABLET PO SCH (08:47)
[2016-12-31] MEDS: MULTIVITAMIN (CENTRUM) TABLET PO SCH (08:47)
[2016-12-31] MEDS: PANTOPRAZOLE 40 MG TABLET PO SCH (08:48)
[2016-12-31] MEDS: PROPRANOLOL 20 MG TABLET PO SCH ×3 (08:48→20:17)
[2016-12-31] MEDS: CLORAZEPATE 7.5 MG TABLET PO SCH ×2 (08:48→20:17)
--- NOTE | 2016-12-31 08:48 | Pulmonology Progress Note ---
Pulmonary - PN: Subj Interval history: This 56-year-old lady had surgery for a pancreatic pseudocyst. She developed respiratory failure and is on the ventilator. She has bilateral infiltrates and today's looks a little worse on the right side. ABGs acceptable. Apparently was having some symptoms of alcohol withdrawal. At the present time she is sedated so no symptoms of that now 12/23/2016 O2 sats look a little better. Chest x-ray show some improvement. ABGs are pending. Will adjust ventilator and start CPAP if tolerated. 12/24/16 ABGs okay. Start CPAP trials. 12/25/2016 again ABGs look okay but patient is not doing well with CPAP. Still having to keep her on sedation to keep her from fighting the ventilator during those. Her liver tests were normal except for an elevated alk phos on admission. I will try her on Haldol and see if we can reduce other sedation. 12/31/2016 patient was able to be extubated. She is moved to the floor. Now oxygen saturation is 94% on room air. Chest x-ray from 3 days ago was essentially clear. Stable pulmonary warren. I will sign off. Please call if needed further Exam (Progress Note) - Constitutional Vitals: Period Temp Pulse Resp BP Sys/Rodriguez Pulse Ox Last 24 Hr 95.6 F-98.0 F 65-76 16-20 107-166/68-90 91-99 Exam: Patient is alert and oriented. Vital signs are normal. Oxygen saturation 94% on room air. Pupils react to light. Neck is supple no bruits. Chest sounds clear with equal breath sounds. Heart normal rate rhythm no murmurs. Abdomen soft bandaged, has bowel sounds. Extremities no clubbing cyanosis or edema. Results - Labs CBC & BMP: 12/29/16 05:03 12/29/16 05:03 Lab Results: I have reviewed the past 24 hour labs Assessment and Plan (1) Pancreatic pseudocyst Status: Acute Assessment and plan: Patient apparently has a long history of pancreatitis. She had surgery 8 days ago with a cyst drained in her stomach. She has had a wound VAC in place and had a wound culture positive for MRSE. Apparently has an ileus at present and is being fed with TPN. 12/22/2016 status post drainage of pseudocyst in the stomach. This happened a little over week ago. 12/23/2016 status post repair. 12/24/2016 status post repair with drainage in the stomach. 12/25/2016 status post repair. 12/31/2016 status post repair. Patient is now eating pretty well. Current Visit: Yes (2) Acute respiratory failure Status: Acute Assessment and plan: She has decreased level of consciousness and acute respiratory failure is on the ventilator. She was requiring a good bit of sedation for her delirium. I am concerned about the combination of Zyvox and SSRI meds. We will stop Cymbalta. May want to consider going to vancomycin since she has normal renal function. In any rate ABGs look okay with PO2 180 on 100% oxygen. Presently on 60%. Adjusting tidal volumes. Recheck ABGs. She has relatively mild but diffuse interstitial infiltrates. Could be ahead on fluid or this could be early ARDS. Will check BNP. 12/22/2016 ABGs marginal but acceptable. Not able to wean as yet. Probably has ARDS. 12/23/2016 clinical picture is that of ARDS. Adjusting ventilator and start weaning but it may take a few days. 12/24/2016 ARDS appears to be improving radiographically. Will try on weaning trials today. 12/25/2016 ARDS post abdominal surgery. Difficulty weaning because of problems with fighting the ventilator when sedation is withdrawn. Presently on propofol and Ativan. Will add Haldol and see if we can reduce the propofol. 12/31/2016 ARDS has resolved. Oxygen saturation 94% on room air. Patient was extubated several days ago in my absence. Current Visit: Yes (3) Abdominal wound infection Status: Acute Assessment and plan: Consider changing to vancomycin from Zyvox because of the multitude of medications that she is on and the possible interactions. 12/22/16 continuing antibiotics. 12/23/2016 grew 2 different kinds of staph from wound. On Zyvox. 12/24/2016 continuing antibiotics 12/25/2016 continuing antibiotics. Current Visit: Yes (4) Delirium Status: Acute Assessment and plan: Thought that she may be having alcohol withdrawal. She has been in the hospital about a week. Unclear how long since last drink prior to admission. 12/22/2016 felt to be due to alcohol withdrawal. Sedated at present. 12/23/16 patient is sedated. Will start withdrawing sedation for weaning trials. 12/24/2016 check mental status when sedation is held. 12/25/16 she becomes combative when sedation is held. Add Haldol. 12/31/2016 mental status is back to baseline. She is alert calm and cooperative. Current Visit: Yes (5) History of alcohol abuse Status: Acute Assessment and plan: Apparently the cause of her pancreatitis. Again watching for evidence of alcohol withdrawal. 12/31/2016 needs long-term abstinence. Current Visit: Yes Specialty Discharge - Follow Up or Referrals Follow up with: Lux Perez MD [Physician] -
[2016-12-31] MEDS: POTASSIUM CHLORIDE 20 MEQ/15 ML UDCUP PO SCH (08:50)
[2016-12-31] MEDS: ENOXAPARIN 40 MG/0.4 ML SYRINGE SUBCUT SCH (08:52)
[2016-12-31] MEDS: POLYETHYLENE GLYCOL POWDER 17 GM PACK PO SCH (09:00)
--- NOTE | 2016-12-31 10:10 | Event Note ---
General Surgery Progress Note Chief complaint This patient is a 56-year-old woman admitted following laparotomy with cyst gastrostomy on 12/13/2016 complicated by alcohol withdrawal and delirium tremens treated with intubation for respiratory distress and Ativan infusion in the ICU Interval history No events overnight or over the weekend. Patient is doing well. Her strength is actually returning nicely. She is tolerating her diet. Her WILMER drain has minimal output. Labs are stable. No fevers. Physical exam Patient is afebrile with normal vital signs Patient is awake and alert and looks healthy Chest is clear Heart is regular Abdomen is soft and appropriately tender. WILMER drain has minimal serous output. No erythema around wound Labs reviewed, stable Imaging None Assessment and plan Discontinue antibiotics Change wound VAC today Discontinue WILMER drain Discharge plan
[2016-12-31 11:01] LABS: Basophils # 0.1 10*3/uL (0.0-0.2); Basophils % 1.2 % (0.0-0.8); Eosinophils # 0.3 10*3/uL (0.0-0.87); Eosinophils % 3.6 % (0.00-10.9); Hematocrit 31.7 VOL% (35.7-47.0); Hemoglobin 10.3 GM/DL (12.0-16.0); Immature Granulocytes % 0.6 %; Immature Granulocytes Absolute 0.04 #; Lymphocytes # 1.6 10*3/uL (1.4-4.0); Lymphocytes % 22.8 % (21.3-54.2); Mean Corpuscular HGB Conc 32.5 GM/DL (32-36); Mean Corpuscular Hemoglobin 30 PG (27-34); Mean Corpuscular Volume 91.1 FL (87-102); Monocytes # 0.5 10*3/uL (0.11-0.8); Monocytes % 6.8 % (1.7-12.7); Neutrophils # 4.5 10*3/uL (1.4-7.4); Platelet Count 497 T/CUMM (130-400); Red Blood Count 3.48 MC/CUMM (3.8-5.5); Red Cell Distribution Width 15.9 % (9.3-17.3); White Blood Count 6.9 T/CUMM (4-12)
[2016-12-31 11:44] LABS: Calcium 8.4 MG/DL (8.5-10.1); Osmolality,Calculated 276.5 MOS/KG (273-304); Potassium 4.9 MMOL/L (3.5-5.1)
--- NOTE | 2016-12-31 13:09 | Physician Query Form ---
CLICK EDIT DOCUMENT TO SELECT QUERY ANSWER --> OK --> SIGN Rena Marques RN, CCDS Certified Clinical Tennis Professional W) [phone] (f) [phone] [email or web address] PROVIDERS: Make your selection(s) from the choices in EACH section by typing an "x" and enter comments in the comment section. Please use your independent medical judgment in providing your response. This request does not imply that any particular answer is desired or expected. CLINICAL INDICATORS: (Providers should not edit this section) The medical record indicates that the patient was admitted with a "Pancreatic Pseudocyst", had surgery, HH of 11.9/36.3 that has dropped to 7.6/ 22.7 on the and the patient was given 2 units of blood. Based on the above, could you clarify which of the following conditions you are evaluating, treating, and/or monitoring? ( ) Blood loss anemia ( ) acute ( ) chronic ( ) acute on chronic ( ) Acute blood loss anemia on baseline chronic anemia ( ) Acute blood loss anemia as a complication of a procedure ( ) Iron deficiency anemia not associated with blood loss (x) Dilutional anemia due to IV fluids ( ) Anemia due to chemotherapy ( ) Anemia due to neoplastic disease ( ) Anemia due to chronic kidney disease ( ) Pernicious anemia ( ) Aplastic anemia ( ) Hemolytic anemia ( ) immune ( ) non-immune - please specify cause: ( ) Anemia due to other condition, please specify: ( ) Clinically unable to determine COMMENTS: PLEASE ALSO DOCUMENT RESPONSE IN PROGRESS NOTES AND/OR DISCHARGE SUMMARY Use of terms such as suspected, likely, or probable (associated with a specific diagnosis that is being evaluated, monitored, or treated as if it exists) are acceptable and can be restated in the discharge summary if not ruled out. MTDD
--- NOTE | 2016-12-31 13:10 | Physician Query Form ---
CLICK EDIT DOCUMENT TO SELECT QUERY ANSWER --> OK --> SIGN Rena Marques RN, CCDS Certified Clinical Hand Roller Engraver W) [phone] (f) [phone] [email or web address] PROVIDERS: Make your selection(s) from the choices in EACH section by typing an "x" and enter comments in the comment section. Please use your independent medical judgment in providing your response. This request does not imply that any particular answer is desired or expected. CLINICAL INDICATORS: (Providers should not edit this section) The medical record indicates that the patient was admitted with a "Pancreatic Pseudocyst", had surgery, on the : "been on the ventilator with bilateral infiltrates". on Vancomycin Based on the above, could you clarify the appropriate diagnosis, if significant , that supports the above abnormalities and additional evaluation, monitoring, and/or treatment rendered: ( ) Infiltrates is only the ZITA's (x ) Infiltrates is Pneumonia ( ) Infiltrates is atelectasis ( ) Infiltrates is pleural effusion ( ) Infiltrates is ( ) Other, please specify: ( ) Clinically unable to determine COMMENTS: PLEASE ALSO DOCUMENT RESPONSE IN PROGRESS NOTES AND/OR DISCHARGE SUMMARY Use of terms such as suspected, likely, or probable (associated with a specific diagnosis that is being evaluated, monitored, or treated as if it exists) are acceptable and can be restated in the discharge summary if not ruled out. MTDD
--- NOTE | 2016-12-31 16:42 | Hospitalist Progress Note ---
Assessment and Plan (1) Delirium Status: Acute Assessment and plan: Metabolic encephalopathy has resolved. Discharge planning has begun. Current Visit: Yes (2) Fibromyalgia Status: Chronic Current Visit: No (3) Acute on chronic pancreatitis Status: Acute Current Visit: No Hospitalist: Subjective Interval history: The patient continues to recover from laparotomy. Wound VAC in place and draining well. The patient is lucid and cheerful. The patient's is at the bedside and were reviewed her hospital course as well as plan of care. Exam - Constitutional Vitals: Period Temp Pulse Resp BP Sys/Rodriguez Pulse Ox Last 24 Hr 95.6 F-98.0 F 65-76 16-20 107-166/63-89 91-99 General appearance: normal weight - Respiratory Respiratory exam: Present: clear to auscultation bilaterally - Cardiovascular Cardiovascular exam: Present: regular rate and rhythm Results - Labs CBC & BMP: 12/31/16 10:51 12/31/16 10:51 Lab Results: I have reviewed the past 24 hour labs Specialty Discharge - Follow Up or Referrals Follow up with: Lux Perez MD [Physician] -
[2016-12-31] MEDS: MIRTAZAPINE 30 MG TABLET PO SCH (20:16)
[2016-12-31] MEDS: amLODIPine 10 MG TABLET PO SCH (20:17)
[2016-12-31] MEDS: QUEtiapine 100 MG TABLET PO SCH (20:17)
[2016-12-31] MEDS: ATORVASTATIN 10 MG TABLET PO SCH (20:18)
[2017-01-01] MEDS: METHOCARBAMOL INJ 500 MG in SODIUM CHLORIDE 0.9% 100 ML IV SCH ×3 (01:53→17:36)
[2017-01-01] MEDS: HYDROmorphone 2 MG/1 ML VIAL IV PRN ×3 (05:45→18:39)
[2017-01-01] MEDS: ALBUTEROL 2.5 MG/3 ML NEB RESP TX SCH ×2 (07:00→19:37)
--- NOTE | 2017-01-01 07:14 | Event Note ---
General Surgery Progress Note Chief complaint This patient is a 56-year-old woman admitted following laparotomy with cyst gastrostomy on 12/13/2016 complicated by alcohol withdrawal and delirium tremens treated with intubation for respiratory distress and Ativan infusion in the ICU Interval history No events overnight. The wound VAC was changed yesterday and there is good granulation tissue on the wound. Physical exam Patient is afebrile with normal vital signs Patient is awake and alert and looks healthy Chest is clear Heart is regular Abdomen is soft and appropriately tender. There is no erythema around the edges of the wound. Labs none new Imaging None Assessment and plan Continue wound VAC Home health with home wound VAC hopefully tomorrow if approved Patient will need skin graft in the next 1-2 weeks.
[2017-01-01] MEDS: CLORAZEPATE 7.5 MG TABLET PO SCH ×2 (10:06→20:59)
[2017-01-01] MEDS: THIAMINE 100 MG TABLET PO SCH (10:06)
[2017-01-01] MEDS: POTASSIUM CHLORIDE 20 MEQ/15 ML UDCUP PO SCH (10:07)
[2017-01-01] MEDS: FOLIC ACID 1 MG TABLET PO SCH (10:08)
[2017-01-01] MEDS: PANTOPRAZOLE 40 MG TABLET PO SCH (10:08)
[2017-01-01] MEDS: MULTIVITAMIN (CENTRUM) TABLET PO SCH (10:08)
[2017-01-01] MEDS: DULoxetine 30 MG CAPSULE PO SCH (10:09)
[2017-01-01] MEDS: ENOXAPARIN 40 MG/0.4 ML SYRINGE SUBCUT SCH (10:10)
[2017-01-01] MEDS: POLYETHYLENE GLYCOL POWDER 17 GM PACK PO SCH (10:20)
[2017-01-01] MEDS: PROPRANOLOL 20 MG TABLET PO SCH ×3 (10:21→21:01)
--- NOTE | 2017-01-01 14:24 | Hospitalist Progress Note ---
Assessment and Plan (1) Delirium Status: Acute Assessment and plan: Metabolic encephalopathy has resolved. Discharge planning has begun. We anticipate discharge home tomorrow if wound VAC can be arranged. Current Visit: Yes (2) Fibromyalgia Status: Chronic Current Visit: No (3) Acute on chronic pancreatitis Status: Acute Current Visit: No Hospitalist: Subjective Interval history: The patient is awake and alert. There were no new problems. Dr. Perez anticipates discharge home tomorrow if wound VAC can be arranged. Exam - Constitutional Vitals: Period Temp Pulse Resp BP Sys/Rodriguez Pulse Ox Last 24 Hr 96.2 F-98.8 F 62-80 15-20 106-133/54-91 91-99 General appearance: no acute distress - Head Head exam: Present: normocephalic - Respiratory Respiratory exam: Present: clear to auscultation bilaterally - Cardiovascular Cardiovascular exam: Present: regular rate and rhythm Results - Labs CBC & BMP: 12/31/16 10:51 12/31/16 10:51 Lab Results: I have reviewed the past 24 hour labs Specialty Discharge - Follow Up or Referrals Follow up with: Lux Perez MD [Physician] -
[2017-01-01] MEDS: amLODIPine 10 MG TABLET PO SCH (20:59)
[2017-01-01] MEDS: QUEtiapine 100 MG TABLET PO SCH (21:01)
[2017-01-01] MEDS: ATORVASTATIN 10 MG TABLET PO SCH (21:01)
[2017-01-01] MEDS: MIRTAZAPINE 30 MG TABLET PO SCH (21:01)
[2017-01-02] MEDS: METHOCARBAMOL INJ 500 MG in SODIUM CHLORIDE 0.9% 100 ML IV SCH ×2 (01:05→10:06)
[2017-01-02] MEDS: HYDROmorphone 2 MG/1 ML VIAL IV PRN ×3 (01:06→14:05)
[2017-01-02] MEDS: ALBUTEROL 2.5 MG/3 ML NEB RESP TX SCH (07:08)
--- NOTE | 2017-01-02 07:21 | Event Note ---
General Surgery Progress Note Chief complaint This patient is a 56-year-old woman admitted following laparotomy with cyst gastrostomy on 12/13/2016 complicated by alcohol withdrawal and delirium tremens treated with intubation for respiratory distress and Ativan infusion in the ICU Interval history Patient is doing well. She feels like [place] is not controlling her pain well. She is requesting a change to Percocet. She is getting up moving around. I am unaware whether or not the home wound VAC has been approved yet. Physical exam Patient is afebrile with normal vital signs Patient is awake and alert and looks healthy Chest is clear Heart is regular Abdomen is soft and appropriately tender. There is no erythema around the edges of the wound. Labs none new Imaging None Assessment and plan Change wound VAC today Discharge home with home wound VAC if it is approved Possible skin graft next week
[2017-01-02] MEDS ORDERED: oxyCODONE/ACETAMINOPHEN 5-325 MG TABLET PO PRN (07:26)
--- NOTE | 2017-01-02 09:11 | Hospitalist Progress Note ---
<Kerry Carbone - Last Filed: 01/02/17 09:09> Assessment and Plan - Time spent with patient Time spent with patient: Less than 30 minutes (1) Abdominal wound infection Status: Acute Assessment and plan: Dr Perez is managing. Waiting on approval for home wound vac so the patient can be discharged with wound vac. He is looking at possible skin graft placement next week. Current Visit: Yes (2) Delirium Status: Acute Assessment and plan: Resolved. If home wound vac placement is approved and arrives today, the patient may be discharged home this afternoon or tomorrow. Current Visit: Yes (3) Acute on chronic pancreatitis Status: Acute Current Visit: No Hospitalist: Subjective Interval history: 01/02/17 Ms Crum sitting up in bed talking on phone. Denies pain at present. Verbalized feeling a little better this morning. She has wound vac intact to abdominal site with intact dressing and abdominal binder. She denies fever, chills, shortness or breath. Chart reviewed. Vital signs stable. Exam - Constitutional Vitals: Period Temp Pulse Resp BP Sys/Rodriguez Pulse Ox Last 24 Hr 96.7 F-98.7 F 67-89 16-20 96-139/50-92 91-99 General appearance: normal weight, no acute distress - Head Head exam: Present: normal inspection - Eye Eye exam: Present: EOMI Pupils: Present: DORIS - Neck Neck exam: Present: normal inspection. Absent: thyromegaly - Respiratory Respiratory exam: Present: clear to auscultation bilaterally. Absent: stridor, wheezes - Cardiovascular Cardiovascular exam: Present: regular rate and rhythm - GI/Abdominal GI/Abdominal exam: Present: tenderness (slightly generalized tenderness; wound vac intact), soft, other. Absent: guarding, rebound - Extremities Exam Extremities exam: Present: full ROM. Absent: edema - Neurological Exam Neurological exam: Present: alert, oriented X3, CN II-XII intact - Psychiatric Psychiatric exam: Present: normal affect, normal mood - Skin Skin exam: Present: normal color, warm, dry Results - Labs CBC & BMP: 12/31/16 10:51 12/31/16 10:51 Lab Results: I have reviewed the past 24 hour labs Specialty Discharge - Follow Up or Referrals Follow up with: Lux Perez MD [Physician] - <Salomón Green - Last Filed: 01/02/17 10:04> Assessment and Plan (1) Delirium Status: Acute Current Visit: Yes (2) Fibromyalgia Status: Chronic Current Visit: No (3) Acute on chronic pancreatitis Status: Acute Current Visit: No Exam - Constitutional Vitals: Period Temp Pulse Resp BP Sys/Rodriguez Pulse Ox Last 24 Hr 96.7 F-98.7 F 67-89 16-20 96-139/50-92 91-99 Results - Labs CBC & BMP: 12/31/16 10:51 12/31/16 10:51
[2017-01-02] MEDS: PANTOPRAZOLE 40 MG TABLET PO SCH (10:00)
[2017-01-02] MEDS: THIAMINE 100 MG TABLET PO SCH (10:00)
[2017-01-02] MEDS: CLORAZEPATE 7.5 MG TABLET PO SCH (10:00)
[2017-01-02] MEDS: DULoxetine 30 MG CAPSULE PO SCH (10:00)
[2017-01-02] MEDS: MULTIVITAMIN (CENTRUM) TABLET PO SCH (10:00)
[2017-01-02] MEDS: ENOXAPARIN 40 MG/0.4 ML SYRINGE SUBCUT SCH (10:00)
[2017-01-02] MEDS: FOLIC ACID 1 MG TABLET PO SCH (10:00)
[2017-01-02] MEDS: PROPRANOLOL 20 MG TABLET PO SCH ×2 (10:00→14:04)
[2017-01-02] MEDS: POTASSIUM CHLORIDE 20 MEQ/15 ML UDCUP PO SCH (10:00)
[2017-01-02] MEDS: POLYETHYLENE GLYCOL POWDER 17 GM PACK PO SCH (10:05)
--- NOTE | 2017-01-02 14:45 | Discharge Summary ---
Hospital Course - Hospital Course Hospital Course: 56-year-old white female with history of hypertension, fibromyalgia, alcohol abuse, and chronic alcoholic pancreatitis admitted by Dr. Perez on 12/13/2016 for evaluation of enlarging pancreatic pseudocyst and pancreatitis. She was taken to the operating room on 12/13/2016 for laparotomy with cyst gastrostomy. The case took twice as normal at that time due to her significant inflammatory changes and adhesions within the abdomen. Initially postoperatively she had some hypotension and responded with fluid resuscitation. Patient was also using a lot of narcotics and developed a postoperative ileus. Patient then developed some worsening abdominal pain that stemmed from a wound infection. Patient had wound VAC placed and NG tube replaced. Patient then developed some deliriousness with some tachycardia and hallucinations with agitation. Her lab work was fairly normal, CT the head was negative, EKG showed no acute findings other than sinus tachycardia. She was transferred to ICU for alcohol withdrawal with DTs, initiated aggressive benzodiazepine protocol to prevent seizure disorder and she was intubated for respiratory distress. Hospitalist and pulmonary were both consulted to assist in her care. Dr. Mclean from infectious diseases was also consulted to assist with her antibiotic therapy. Patient was finally extubated on 12/28/2016 and she has done fairly well since then. Patient looks good, she is awake and alert and she is eating well. Her wound looks good with VAC changes 3 times per week. Patient is being discharged home today with a wet-to-dry dressing. We are waiting for approval from her insurance company for a home vac. Hopefully they will deliver to her house tomorrow and [facility] will apply the VAC and she will follow-up with Dr. Perez in his office on Saturday. She will receive VAC changes on Mondays and . If she cannot get the home VAC approved then she will do wet-to-dry dressing changes and [facility] will see her for this. All wound orders have been written for both case scenarios and pain medicines as well. Complete discharge instructions were given to the patient and her in the room. She will follow-up with Dr. Perez on Saturday. Care coordination, chart review, and completed discharge paperwork took approximately 56 minutes. - Time spent with patient Time with patient DS: Greater than 30 minutes Diagnosis - Discharge Diagnosis (1) Hypertension Status: Chronic (2) Fibromyalgia Status: Chronic (3) Tobacco abuse Status: Chronic (4) Acute on chronic pancreatitis Status: Resolved (5) Alcohol abuse Status: Chronic (6) Abdominal wound infection Status: Resolved (7) Delirium Status: Resolved (8) Delirium tremens Status: Resolved Specialty Discharge - Follow Up or Referrals Follow up with: Lux Perez MD [Physician] - Discharge Plan - Discharge Data Disposition: Home Health Service Condition at Discharge: Stable Discharge Diet: advance to your usual diet Activity: no lifting Hygiene: keep area(s) dry Driving: other (No driving if taking pain medications) Contact your physician if you experience:: fever over 101, Nausea/Vomiting - Discharge Medications New Polyethylene Glycol Powder [Miralax] 17 gm PO DAILY oxyCODONE/ACETAMINOPHEN 5-325 [Percocet 5-325] 1 - 2 tablet PO Q6H PRN #30 tablet PRN Reason: Pain Moderate (4-7) Continue QUEtiapine [SEROquel] 100 mg PO BEDTIME Mirtazapine 30 mg PO BEDTIME Atorvastatin [Lipitor] 10 mg PO QPM Tizanidine HCl 2 mg PO TID PRN PRN Reason: Muscle Spasm Loratadine [Claritin] 10 mg PO DAILY PRN PRN Reason: Allergy Symptoms Duloxetine HCl [Cymbalta] 120 mg PO DAILY Propranolol Tab [Inderal Tab] 20 mg PO TID Nicotine 21 mg/24 Hr Patch [Nicoderm CQ 21 mg/24 hr Patch] 1 patch TRANSDERM DAILY PRN #0 patch PRN Reason: Nicotine Cravings amLODIPine [Norvasc] 10 mg PO QPM tablet Multivitamin (Centrum) [Centrum Tab] 1 tablet PO DAILY tablet Thiamine Tab [Vitamin B1 Tab] 100 mg PO DAILY tablet Ondansetron Tab [Zofran Tab] 4 mg PO Q4H PRN PRN Reason: Nausea Doxepin [SINEquan] 100 mg PO BEDTIME hydroCHLOROthiazide [Hydrochlorothiazide] 12.5 mg PO QAM Fluticasone 50 Mcg Nasal [place] [Flonase Nasal [place]] 1 spray BOTH NARES DAILY PRN PRN Reason: Allergy Symptoms Beclomethasone 40 Mcg Inhaler [Qvar 40 Mcg] 2 puffs PO BID Albuterol Sulfate [Proair HFA] 2 puffs PO BID PRN PRN Reason: Shortness Of Breath Pantoprazole Tab [Protonix Tab] 40 mg PO QAM Folic Acid Tab 1 mg PO DAILY tablet Discontinued HYDROcodone/ACETAMIN 10-325 [[place] 10-325] 1 tablet PO Q4-6H PRN PRN Reason: Pain - Follow Up or Referral Follow Up: Lux Perez MD [Physician] - 01/07/17 - Forms/Instructions Instructions: Pancreatitis (DC), Pancreatic Pseudocyst (DC) Exam - Constitutional Vitals: Period Temp Pulse Resp BP Sys/Rodriguez Pulse Ox Last 24 Hr 96.7 F-98.7 F 67-89 16-20 96-139/50-92 91-99 Exam: 56-year-old white female, no acute distress, alert and oriented Chest clear CV regular rate and rhythm Abdomen soft, appropriately tender, wound is clean with good granulation tissue Extremities no edema DS: Provider Date of admission: 12/13/16 08:29 Primary care physician: Delmar Crowe Attending physician on admission: Lux Perez MD Consults: 12/13/16 17:21 Consult to Dietitian [CONS] Routine Reason for Dietitian: Dietary Consult Consult to Pastoral Services [CONS] Routine Comment: Pastoral Screen: Request [employer] Visit Pastoral Screen Source of Request: Patient 12/20/16 10:39 Consult to Dietitian [CONS] Routine Reason for Dietitian: TPN/PPN-Initiate/Manage Consult Comment: start tpn p picc line placed 12/21/16 03:03 Consult to Physician [CONS] Routine Comment: change in pt mental status Consulting Provider: Salomón Green Consulting Provider Notified: Yes When should Consulting Provider be notified: Now Consult to Specialist Group: Hospitalist When should Consulting Provider be notified: Now Person Notified: Date Notified: 12/21/16 Time Notified: 08:25 Consult Notification Comment: 12/21/16 08:47 Consult to Physician [CONS] Routine Comment: Consulting Provider: Pk Powell Consulting Provider Notified: Yes Consult to Specialist Group: Pulmonology When should Consulting Provider be notified: Now Person Notified: MEENA Date Notified: 12/21/16 Time Notified: 11:15 12/24/16 08:56 Consult to Dietitian [CONS] Routine Reason for Dietitian: TF-Initiate/Manage 12/24/16 10:18 Consult to Case Mgmt/Social Srvs [CONS] Routine Reason for Case Mgmt/Social Srvs: LTAC Consult Comment: CHECK TO SEE IF PT HAS LTAC BENEFIT WITH INSURANCE CO. 12/26/16 11:44 Consult to Physician [CONS] Routine Comment: abx selection Consulting Provider: Kenisha Mclean 12/28/16 11:54 Consult to Physical Therapy [CONS] Routine Reason for Physical Therapy: Evaluate and Treat Start Therapy: Today Consult Comment: Irene JAMES REQUESTED BY BS OF [place] INSURANCE, TRYING TO APPROVE LTAC 12/28/16 19:15 Consult to Physical Therapy [CONS] Routine Reason for Physical Therapy: Evaluate and Treat 12/31/16 13:33 Consult to Case Mgmt/Social Srvs [CONS] Routine Reason for Case Mgmt/Social Srvs: Home Health Consult Comment: home vac approval Discharging clinician: JOSE MIGUEL Bunn Expected date of discharge: 01/02/17
[2017-01-02 16:22] VITALS: BP 126/74
[2017-01-02] MEDS ORDERED: CHLORHEXIDINE 4% SOLN 118 ML BOTTLE TOP SCH (16:30)
== END 2017-01-02 17:01 | disposition home health service (06) | DRG 405 ==
LOC: EDSTATUS 06:00 → N.OR 08:29 → N.SDSINP 08:29 → N.3E 14:26 → N.ICU 12-21 08:06 → N.3E 12-29 15:05
PROVIDERS: ADMIT Surgery; ATTEND Surgery